=== PATIENT | male | born 1945 | race Caucasian/White ===

== ENCOUNTER → 2016-03-12 | Outpatient (CLI) | payer BC ==
[~2016-03-12] MED LIST: ASPEC325 PO; CALC500C70 PO; CHOL1000 PO; CYAN10005 PO; DICL1GEL12 TOP; LANS30CA12 PO; MELO15TA4 PO; MULT-506 PO; OXYC-57 PO; RAPID FLOW; SILD100T PO; ZOLP5TAB PO
--- NOTE | 2016-03-12 18:11 | DIAGNOSTIC IMAGING REPORT ---
RIGHT ANKLE MIN 3 VIEWS ROUTINE, RIGHT TIBIA/FIBULA 2 VIEWS ROUTINE CLINICAL HISTORY: Right lower leg and ankle injury with pain. COMPARISON STUDY: None. FINDINGS: Anterior and lateral soft tissue swelling within the right ankle. No fracture or dislocation within the right lower leg or right ankle. No radiopaque foreign bodies. IMPRESSION: No acute fracture or dislocation within the right tibia, right fibula, or right ankle. Electronically signed by: Hugh Arthur M.D. 03/12/2016 6:09 PM Dictated Date/Time: 03/12/2016 6:05 PM
== END | disposition home or self-care (01) ==
LOC: C.RAD 17:24
PROVIDERS: ATTEND Family Medicine
DX: S99.912A Unspecified injury of left ankle, initial encounter (principal); X58.XXXA Exposure to other specified factors, initial encounter

== ENCOUNTER → 2016-03-30 | Outpatient (CLI) | payer BC ==
--- NOTE | 2016-03-30 13:17 | DIAGNOSTIC IMAGING REPORT ---
MRI THE RIGHT ANKLE NO CONTRAST CLINICAL HISTORY: Right ankle pain status post trauma. Negative x-rays. COMPARISON STUDY: Conventional radiographic study dated 03/12/2016 FINDINGS: Imaging was performed the sagittal, coronal, and axial planes. There is mild marrow edema involving the anterior inferior talus. No fracture line is visualized in this may represent a bone bruise. There is anterior and lateral soft tissue edema. The anterior and posterior talo fibular ligaments appear intact. The anterior and posterior tibiofibular ligaments appear intact. The deltoid ligament appears intact. There is a tear of the tibialis anterior tendon. IMPRESSION: 1. Full-thickness tear of the tibialis anterior tendon 2. Mild marrow edema involving the anterior inferior talus likely secondary to a bone bruise 3. No evidence major ligamentous tear Electronically signed by: Juan Brown M.D. 03/30/2016 1:16 PM Dictated Date/Time: 03/30/2016 1:07 PM
== END | disposition home or self-care (01) ==
LOC: C.MRIBC 11:29
PROVIDERS: ATTEND Orthopaedic Surgery
DX: S96.911A Strain of unspecified muscle and tendon at ankle and foot level, right foot, initial encounter (principal); X58.XXXA Exposure to other specified factors, initial encounter

== ENCOUNTER → 2016-04-06 | Outpatient (CLI) | payer BC ==
[2016-04-06 15:38] LABS: BASO % 0.5 %; BASO ABS # 0.03 K/uL (0-0.2); COMPLETE YES; EOS % 0.9 %; HEMATOCRIT 40.4 % (42-52); IG% 0.2 %; LYMPH % 35.2 %; LYMPH ABS # 2.34 K/uL (1.2-3.4); MEAN CELL VOLUME 90.8 fL (80-100); MEAN CORPUSCULAR HGB CONC 34.2 g/dl (32-36); MEAN PLATELET VOLUME 12.8 fL (7.4-10.4); MONO % 10.2 %; PLATELET COUNT 198 K/uL (130-400); RED BLOOD COUNT 4.45 M/uL (4.7-6.1); WHITE BLOOD COUNT 6.65 K/uL (4.8-10.8)
[2016-04-06 15:57] LABS: POTASSIUM 3.7 mmol/L (3.5-5.1)
== END | disposition home or self-care (01) ==
LOC: C.LAB 14:14
PROVIDERS: ATTEND Orthopaedic Surgery Sports Medicine
DX: Z01.812 Encounter for preprocedural laboratory examination (principal); Z01.810 Encounter for preprocedural cardiovascular examination

== ENCOUNTER → 2016-04-11 | Day surgery (SDC) | payer BC ==
[2016-04-09 13:23] VITALS: Ht 188 cm; Wt 102.3 kg
[~2016-04-11] VITALS: Ht 188 cm; Wt 102.3 kg
[~2016-04-11] MED LIST changes: +ATROPINE SULFATE 0.1 MG/ML 5ML SYR IV PRN; +BUPIVACAINE/EPINEPHRINE 0.5% MPF 1:200,000 30 ML VIAL ONE; +CEFAZOLIN 2000 MG/60 ML D5W IV SCH; +CEFAZOLIN SOD 1 GM VIAL IV ONE; +DEXAMETHASONE SOD INJ 4 MG/ML VIAL ONE; +EpHEDrine SULFATE 50MG/5ML SYR ONE; +EpHEDrine SULFATE INJ 50 MG/ML AMP IV PRN; +FENTANYL CITRATE INJ 50 MCG/1 ML 2 ML VIAL IV PRN; +FENTANYL CITRATE INJ 50 MCG/1 ML 2 ML VIAL ONE; +GLYCOPYRROLATE INJ 0.2 MG/ML VIAL ONE; +LACTATED RINGER'S 1000ML 1,000 ML IV SCH; +LIDOCAINE HCL 2% 2 ML VIAL (20MG/ML) ONE; +MIDAZOLAM HCL 1 MG/ML 2ML VIAL ONE; +NEOSTIGMINE METHYLSULFATE 5 MG/5 ML SYR ONE; +NURSING VERBAL MED ORDER ONE; +ONDANSETRON INJ 2 MG/ML 2 ML VIAL IV PRN; +ONDANSETRON INJ 2 MG/ML 2 ML VIAL ONE; +OXYCODONE/ACETAMINOPHEN 5-325 TAB PO PRN; +PROPOFOL IV EMULSION 10 MG/ML 20 ML VIAL IV ONE; +RANITIDINE HCL 25 MG/ML INJ ONE; +ROCURONIUM BROMIDE 10 MG/ML 5 ML VIAL ONE; +SODIUM CHLORIDE 0.9% 1000ML 1,000 ML IV SCH; +SUCCINYLCHOLINE 100MG/5ML SYR IV ONE
--- NOTE | 2016-04-11 06:54 | History & Physical Bridge - [place] ---
H&P Re-Evaluation Bridge Note: I have examined the patient, reviewed the History & Physical and in the interval since the performance of the History & Physical I have noted the following changes of clinical significance: No changes noted
--- NOTE | 2016-04-11 09:22 | Discharge Instructions-SurgCtr ---
Discharge Instructions Visit Reason for Visit: Tendon Injury Lower Limb Discharge Discharge Diagnosis / Problem: RIGHT ANTERIOR TIBIALIS TENDON RUPTURE Discharge Goals Goal(s): Improve function, Therapeutic intervention Activity Recommendations Activity Limitations: per Instructions/Follow-up section Weightbearing Status: Right non-weightbearing Anesthesia . Post Anesthesia Instructions: If you have had General Anesthesia or IV Sedation: * Do not drive today. * Resume driving when surgeon permits. * Do not make important decisions or sign legal documents today. * Call surgeon for: 1. Temperature elevations greater than 101 degrees F. 2. Uncontrollable pain. 3. Excessive bleeding. 4. Persistent nausea and vomiting. 5. Medication intolerance (nausea, vomiting or rash). * For nausea and vomiting use only clear liquids such as: tea, soda, bouillon until nausea subsides, then gradually increase diet as tolerated. * If you have any concerns or questions, call your surgeon's office. If physician is unavailable and it is an emergency, call 911 or go to the nearest emergency room. . Instructions / Follow-Up Instructions / Follow-Up MEDICATIONS: * Resume previous medications unless instructed otherwise by your surgeon. * Always take pain medication on a full stomach or with food to avoid upset stomach. * Do not drink alcohol or drive while taking narcotics. * Ibuprofen or Tylenol may be taken if narcotic not needed. SPECIAL CARE INSTRUCTIONS: __ None _X_ Keep extremity elevated and iced x 48 hours; apply ice 20-30 minutes 8-10 times/day. May remove at night. _X_ Crutches (NON WEIGHTBEARING RIGHT LOWER EXTREMITY) __ May discard when able __ Brace/Post-op shoe __ 24 hrs/day __ Remove at night _X_ Dressing _X_ Maintain until seen in office, may shower with plastic over site __ Remove dressings in 24-48 hours and then may shower __ Cover incisions with band-aids after showering __ Do not remove steri-strips Call physician if chills or temperature rises above 102 degrees or pain unrelieved by prescribed pain medications. Office [phone] FOLLOW UP IN 2 WEEKS Diet Recommendations Home Diet: resume previous diet Procedures Procedures Performed: Right Anterior Tibialis Tendon Repair Pending Studies Studies pending at discharge: no Medical Emergencies . Who to Call and When: Medical Emergencies: If at any time you feel your situation is an emergency, please call 911 immediately. . Non-Emergent Contact Non-Emergency issues call your: Primary Care Provider, Surgeon . . "Provider Documentation" section prepared by Daniel Mcneil.
--- NOTE | 2016-04-11 09:24 | [facility] Post Operative Brief Note ---
Immediate Operative Summary Operative Date Apr 11, 2016. Pre-Operative Diagnosis right anterior tibialis tendon rupture Post-Operative Diagnosis same Procedure(s) Performed Right Anterior Tibialis Tendon Repair with z-lengthening Surgeon Dr Oliveira Medical Assistant Per Diem Surgeon(s) Lulu Mcneil PA-C Estimated Blood Loss 20 ml Findings Ruptured and contracted tibialis anterior tendon Specimens 0 Anesthesia General Complication(s) None Disposition Recovery Room / PACU
[2016-04-11 10:05] VITALS: TEMP 36.7
--- NOTE | 2016-04-11 10:33 | Anesthesia Progress Nt - [facility] ---
Anesthesia Post Op Note Date & Time Apr 11, 2016 at 10:34 Vital Signs Pain Intensity: 2 Vital Signs Past 12 Hours Date Time Temp Pulse Resp B/P Pulse Ox O2 Delivery O2 Flow Rate FiO2 04/11/16 10:05 36.7 65 16 133/75 98 Room Air 04/11/16 09:59 36.7 70 22 04/11/16 09:59 70 22 99 04/11/16 09:58 125/74 04/11/16 09:54 65 16 99 04/11/16 09:54 65 16 04/11/16 09:53 123/72 04/11/16 09:49 72 24 99 04/11/16 09:49 72 24 04/11/16 09:48 133/71 04/11/16 09:44 71 24 100 04/11/16 09:44 71 24 04/11/16 09:43 121/70 04/11/16 09:39 76 17 04/11/16 09:39 75 17 100 04/11/16 09:38 130/68 04/11/16 09:34 64 0 04/11/16 09:34 64 0 100 04/11/16 09:33 138/70 04/11/16 09:30 36.5 90 20 123/92 99 Nasal Cannula 4 04/11/16 09:29 84 19 04/11/16 09:29 86 19 99 04/11/16 06:27 36.3 64 18 126/69 95 Room Air Notes Mental Status: alert / awake / arousable, participated in evaluation Pt Amnestic to Procedure: Yes Nausea / Vomiting: adequately controlled Pain: adequately controlled Airway Patency, RR, SpO2: stable & adequate BP & HR: stable & adequate Hydration State: stable & adequate Anesthetic Complications: no major complications apparent
--- NOTE | 2016-04-11 10:59 | OPERATIVE REPORT ---
DATE OF OPERATION: 04/11/2016 SURGEON: Dr. Jeff Oliveira. PROFESSOR OF ENVIRONMENTAL STUDIES: JULIUS Arzola PREOPERATIVE DIAGNOSIS: Right subacute tibialis anterior tendon rupture. POSTOPERATIVE DIAGNOSIS: Same. PROCEDURE: Right tibialis anterior tendon repair with a Z lengthening. COMPLICATIONS: None. ESTIMATED BLOOD LOSS: 20 mL. TOURNIQUET TIME: 71 minutes at 300 mmHg. ANESTHESIA: General. SPECIMENS: None. OPERATIVE INDICATIONS: The patient is a 70-year-old very active, healthy gentleman who had some pain in his foot for several months. About a month ago, he had a couple of stumbling episode and then had increased weakness and a lump that developed over the front of his ankle. He was seen in clinic and diagnosed with tibialis anterior rupture, which was confirmed by MRI. The patient elected to proceed with surgical treatment. OPERATIVE FINDINGS: Operative findings revealed a tibialis anterior tendon rupture that was contracted back to his superior extensor retinaculum just at the inferior border. There was a very distal stump, but nothing that could be repaired to of any significant quality. It was fairly contracted. After sutures were placed in it, it was approximately 4 cm away from the insertion onto the medial cuneiform. OPERATIVE PROCEDURE: The patient was taken to the operating room, identified and placed on the operating table in the supine position. All contact areas were appropriately padded. IV antibiotics were provided by anesthesia team. A general anesthetic was implemented by anesthesia team. Right thigh tourniquet was then placed and the right lower extremity was then prepped and draped in the usual sterile fashion. The right leg was elevated and exsanguinated with Esmarch and tourniquet was placed at 300 mmHg. An approach to the tibialis anterior tendon was then performed beginning at the inferior aspect of the extensor retinaculum into the medial aspect of the medial cuneiform. Sharp dissection was carried out through the subcutaneous tissue down to the level of the dorsal foot fascia. I then opened the dorsal foot fascia. I was able to identify the tendon. There was quite a bit of fibrinous tissue around it. It was just at the inferior border of the superior extensor retinaculum. I did not incise this. I was able to pull the tendon down and placed a #2 FiberWire suture through the tendon in a running whipstitch fashion. This did tubularize it some. I then measured the diameter and it was 8 mm in diameter. We pulled on this and it was still 3-4 cm away from the potential bone tunnel in the medial cuneiform. Attention was then drawn toward creating the bone tunnel. This soft tissue over the medial cuneiform was identified under fluoroscopy and then we stripped the soft tissue off the bone. I then placed a guidewire in a proximal medial aspect of the medial cuneiform. I verified this fluoroscopically. I then overdrilled this with an 8-mm acorn reamer for a distance of 15 mm. I then placed some passing sutures to the plantar aspect of the foot. I placed an additional 0 Vicryl suture in the distal aspect of the tendon to apply tension. We then passed the sutures through the bone tunnel and the medial cuneiform and passed to the plantar aspect of the foot. Once again I was 3 cm away from getting this down into the tunnel, so we proceeded with a Z lengthening. The proximal incision was extended up the leg. I directed this off the lateral border of the anterior crest of the tibia about a cm. I then opened the anterior compartment fascia about a cm off the border of the tibial crest. The tibialis anterior tendon was identified. I then Z lengthened this for 5 cm above the superior extensor retinaculum. I then pulled the tibialis anterior tendon distally down into the bone tunnel. We then used an Arthrex biceps button, inserted the sutures through this and then tied this on the plantar aspect of the foot. This provided excellent approximation of the tendon into the bone. This did separate the Z lengthening essentially 5 cm. I then went to repair this Z lengthening. With the foot held in dorsiflexion, we placed a #2 FiberWire suture in the proximal and distal aspects of the Z lengthening portion of the tendon in a [place] fashion. I then tied the sutures keeping the foot in maximum dorsal flexion. We had got good approximation. There was a little bit of a bump to it in this area, but very nicely approximated. There was some moderate tension, which was ideal, but not excessive. Attention was then drawn toward closing. All wounds were irrigated with copious amounts of normal saline. I did inject locally with 30 mL of 0.5% Marcaine with epinephrine. The anterior compartment fascia was closed with 0 Vicryl suture in a [id number] fashion. The dorsal foot fascia in the inferior extensor retinaculum was closed with 0 Vicryl suture in a [id number] fashion. I did incorporate the distal stump of the tibialis anterior tendon and sewed it right over top of the inserted tendon into the bone to reinforce this. The tourniquet was then let down for a tourniquet time of 71 minutes. Hemostasis was assured with use of electrocautery. The subcutaneous tissues were then closed with 2-0 Dexon suture in a buried interrupted fashion. Skin was closed with 3-0 nylon suture in a horizontal mattress fashion. The foot and leg were then cleaned and dried and a sterile dressing of Xeroform, 4 x 4's, sterile cast padding and a well-padded posterior and stirrup splint were applied with the foot in maximum dorsiflexion. The patient was then brought out of general anesthesia and transferred to the recovery room in stable condition. The patient tolerated the procedure well with no complications. All needle and sponge counts were correct at the end of the operation. I attest to the content of the Intraoperative Record and any orders documented therein. Any exceptions are noted below. MIK
[2016-04-11 11:05] VITALS: BP 131/79; PULSE 65; O2SAT 98
== END | disposition home or self-care (01) ==
LOC: X.SURG 06:15
PROVIDERS: ATTEND Orthopaedic Surgery Sports Medicine
DX: M66.871 Spontaneous rupture of other tendons, right ankle and foot (principal); K21.9 Gastro-esophageal reflux disease without esophagitis

== ENCOUNTER 2016-07-26 09:01 | Day surgery (SDC) | payer BC ==
[2016-07-12 10:53] VITALS: BMI 25.0
--- NOTE | 2016-07-17 09:39 | DIAGNOSTIC IMAGING REPORT ---
CHEST 2 VIEWS ROUTINE CLINICAL HISTORY: K40.90 Inguinal hernia, right PRE-OP [id number] COMPARISON STUDY: No previous studies for comparison. FINDINGS: Mild emphysematous change. Study otherwise is negative. No evidence for cardiac enlargement. Diaphragms smooth. IMPRESSION: Emphysematous change. No acute process. Electronically signed by: Roberth Moe M.D. 07/17/2016 9:38 AM Dictated Date/Time: 07/17/2016 9:36 AM
[2016-07-17 09:49] LABS: BASO % 0.5 %; BASO ABS # 0.03 K/uL (0-0.2); COMPLETE YES; EOS % 0.8 %; HEMATOCRIT 43.3 % (42-52); IG% 0.2 %; LYMPH % 36.3 %; LYMPH ABS # 2.17 K/uL (1.2-3.4); MEAN CELL VOLUME 93.7 fL (80-100); MEAN CORPUSCULAR HEMOGLOBIN 31.2 pg (25-34); MEAN CORPUSCULAR HGB CONC 33.3 g/dl (32-36); MEAN PLATELET VOLUME 11.7 fL (7.4-10.4); MONO % 9.2 %; PLATELET COUNT 195 K/uL (130-400); RED BLOOD COUNT 4.62 M/uL (4.7-6.1); WHITE BLOOD COUNT 5.97 K/uL (4.8-10.8)
[2016-07-17 10:27] LABS: CALCIUM 8.9 mg/dl (8.5-10.1); CREATININE 0.94 mg/dl (0.60-1.40); POTASSIUM 4.5 mmol/L (3.5-5.1)
[~2016-07-26] VITALS: Ht 185.4 cm; Wt 88.6 kg
[~2016-07-26 09:01] MED LIST changes: -ASPEC325 PO; -ATROPINE SULFATE 0.1 MG/ML 5ML SYR IV PRN; -BUPIVACAINE/EPINEPHRINE 0.5% MPF 1:200,000 30 ML VIAL ONE; -CEFAZOLIN 2000 MG/60 ML D5W IV SCH; -CEFAZOLIN SOD 1 GM VIAL IV ONE; -DEXAMETHASONE SOD INJ 4 MG/ML VIAL ONE; -DICL1GEL12 TOP; -EpHEDrine SULFATE 50MG/5ML SYR ONE; -EpHEDrine SULFATE INJ 50 MG/ML AMP IV PRN; -FENTANYL CITRATE INJ 50 MCG/1 ML 2 ML VIAL IV PRN; -FENTANYL CITRATE INJ 50 MCG/1 ML 2 ML VIAL ONE; -GLYCOPYRROLATE INJ 0.2 MG/ML VIAL ONE; -LIDOCAINE HCL 2% 2 ML VIAL (20MG/ML) ONE; -MELO15TA4 PO; -MIDAZOLAM HCL 1 MG/ML 2ML VIAL ONE; -NEOSTIGMINE METHYLSULFATE 5 MG/5 ML SYR ONE; -NURSING VERBAL MED ORDER ONE; -ONDANSETRON INJ 2 MG/ML 2 ML VIAL IV PRN; -ONDANSETRON INJ 2 MG/ML 2 ML VIAL ONE; -OXYC-57 PO; -OXYCODONE/ACETAMINOPHEN 5-325 TAB PO PRN; -PROPOFOL IV EMULSION 10 MG/ML 20 ML VIAL IV ONE; -RANITIDINE HCL 25 MG/ML INJ ONE; -RAPID FLOW; -ROCURONIUM BROMIDE 10 MG/ML 5 ML VIAL ONE; -SODIUM CHLORIDE 0.9% 1000ML 1,000 ML IV SCH; -SUCCINYLCHOLINE 100MG/5ML SYR IV ONE
[2016-07-26] MEDS ORDERED: ATROPINE SULFATE 0.1 MG/ML 5ML SYR IV PRN (09:30)
[2016-07-26] MEDS ORDERED: FENTANYL CITRATE INJ 50 MCG/1 ML 2 ML VIAL IV PRN (09:30)
[2016-07-26] MEDS ORDERED: HYDROmorphone INJ 1 MG/ML SYR IV PRN (09:30)
[2016-07-26] MEDS ORDERED: LABETALOL HCL IV 5 MG/ML 20ML IV PRN (09:30)
[2016-07-26] MEDS ORDERED: EpHEDrine SULFATE INJ 50 MG/ML AMP IV PRN (09:30)
[2016-07-26] MEDS ORDERED: ONDANSETRON INJ 2 MG/ML 2 ML VIAL IV PRN ×2 (09:30→12:00)
[2016-07-26] MEDS ORDERED: MEPERIDINE HCL 25 MG/ML CARP IV PRN (09:30)
[2016-07-26 09:34] VITALS: BP 118/73; PULSE 66; TEMP 36.9; O2SAT 100; Ht 185.4 cm; Wt 88.6 kg
[2016-07-26] MEDS ORDERED: RAPID FLOW (09:53)
[2016-07-26] MEDS ORDERED: OXYC-57 PO (10:08)
--- NOTE | 2016-07-26 10:10 | Discharge Instructions ---
Discharge Instructions Date of Service July 26, 2016. Visit Reason for Visit: Recurrent Right Inguinal Hernia Discharge Discharge Diagnosis / Problem: hernia repair Discharge Goals Goal(s): Decrease discomfort Activity Recommendations Activity Limitations: as noted below Lifting Limitations: no more than 10 pounds Shower/Bathe: tomorrow Driving or Machine Use: 1 week Anesthesia . Post Anesthesia Instructions: If you have had General Anesthesia or IV Sedation: * Do not drive today. * Resume driving when surgeon permits. * Do not make important decisions or sign legal documents today. * Call surgeon for: 1. Temperature elevations greater than 101 degrees F. 2. Uncontrollable pain. 3. Excessive bleeding. 4. Persistent nausea and vomiting. 5. Medication intolerance (nausea, vomiting or rash). * For nausea and vomiting use only clear liquids such as: tea, soda, bouillon until nausea subsides, then gradually increase diet as tolerated. * If you have any concerns or questions, call your surgeon's office. If physician is unavailable and it is an emergency, call 911 or go to the nearest emergency room. . Instructions / Follow-Up Instructions / Follow-Up Dr. Arevalo in 1 week, call [phone] if you have any questions or need to schedule an appt Ice groin/incision area off and on alternating every 20 minutes until bedtime Diet Recommendations Recommended Home Diet: no limitations Pending Studies Studies pending at discharge: no Medical Emergencies . Who to Call and When: Medical Emergencies: If at any time you feel your situation is an emergency, please call 911 immediately. . Non-Emergent Contact Non-Emergency issues call your: Surgeon Call Non-Emergent contact if: you have a fever, temperature is above 101.5, your pain is not controlled, wound has increased redness . . "Provider Documentation" section prepared by Armando Mcclure. .
--- NOTE | 2016-07-26 10:13 | History & Physical Bridge Note ---
H&P Re-Evaluation Bridge Note: I have examined the patient, reviewed the History & Physical and in the interval since the performance of the History & Physical I have noted the following changes of clinical significance: No changes noted pt marked to be in waiting room
[2016-07-26] MEDS ORDERED: PROPOFOL IV EMULSION 10 MG/ML 20 ML VIAL IV ONE (10:20)
[2016-07-26] MEDS ORDERED: DEXAMETHASONE SOD INJ 4 MG/ML VIAL ONE (10:20)
[2016-07-26] MEDS ORDERED: ONDANSETRON INJ 2 MG/ML 2 ML VIAL ONE (10:20)
[2016-07-26] MEDS ORDERED: FENTANYL CITRATE INJ 50 MCG/1 ML 2 ML VIAL ONE ×2 (10:20→11:12)
[2016-07-26] MEDS ORDERED: LIDOCAINE HCL 2% 2 ML VIAL (20MG/ML) ONE (10:20)
[2016-07-26] MEDS ORDERED: MIDAZOLAM HCL 1 MG/ML 2ML VIAL ONE (10:21)
[2016-07-26] MEDS ORDERED: BACITRACIN 50000 UNIT VIAL ONE (10:26)
[2016-07-26] MEDS ORDERED: BUPIVACAINE 0.5 % 5 MG/1 ML MPF 30ML VIAL ONE (10:26)
[2016-07-26] MEDS ORDERED: CEFAZOLIN SOD 1 GM VIAL ONE ×2 (10:48→11:36)
[2016-07-26] MEDS ORDERED: GLYCOPYRROLATE INJ 0.2 MG/ML VIAL ONE (11:19)
[2016-07-26] MEDS ORDERED: EpHEDrine SULFATE 50MG/5ML SYR ONE (11:19)
--- NOTE | 2016-07-26 11:51 | [facility] Post Operative Brief Note ---
Immediate Operative Summary Operative Date July 26, 2016. Pre-Operative Diagnosis Right Inguinal Hernia Post-Operative Diagnosis Same direct and lipoma cord Procedure(s) Performed Direct Right Inguinal Hernia Repair with Mesh, Removal of Right Lipoma Cord Surgeon Dr Arevalo Open Winder Surgeon(s) Diana Monique PA-C Estimated Blood Loss 3.5ml Findings direct hernia and lipoma cord Specimens Specimen A. Lipoma
[2016-07-26] MEDS ORDERED: SODIUM CHLORIDE 0.9% 1000ML 1,000 ML IV SCH (11:53)
[2016-07-26] MEDS ORDERED: OXYCODONE/ACETAMINOPHEN 5-325 TAB PO PRN ×2 (12:00)
[2016-07-26 12:35] VITALS: BP 105/62; PULSE 57; TEMP 36.4; O2SAT 100
--- NOTE | 2016-07-26 12:35 | Anesthesiology Progress Note ---
Anesthesia Post Op Note Date & Time July 26, 2016 at 12:35 Vital Signs Pain Intensity: 4 Vital Signs Past 12 Hours Date Time Temp Pulse Resp B/P Pulse Ox O2 Delivery O2 Flow Rate FiO2 07/26/16 12:29 36.4 07/26/16 12:26 113/68 07/26/16 12:25 58 16 96 07/26/16 12:25 56 16 07/26/16 12:21 112/68 07/26/16 12:20 55 16 100 07/26/16 12:20 56 16 07/26/16 12:19 53 17 100 07/26/16 12:19 52 17 07/26/16 12:16 115/69 07/26/16 12:14 51 12 100 07/26/16 12:14 52 12 07/26/16 12:11 120/74 07/26/16 12:09 56 14 100 07/26/16 12:09 55 14 07/26/16 12:08 58 16 07/26/16 12:08 59 16 99 07/26/16 12:06 121/78 07/26/16 12:03 57 18 100 07/26/16 12:03 56 18 07/26/16 12:01 125/73 07/26/16 11:58 55 13 100 07/26/16 11:58 56 13 07/26/16 11:57 121/66 07/26/16 11:53 58 15 07/26/16 11:53 58 15 100 07/26/16 11:51 127/74 07/26/16 11:50 123/75 07/26/16 11:48 36.1 62 16 123/75 100 Mask 10 07/26/16 09:34 36.9 66 18 118/73 100 Room Air Notes Mental Status: alert / awake / arousable, participated in evaluation Pt Amnestic to Procedure: Yes Nausea / Vomiting: adequately controlled Pain: adequately controlled Airway Patency, RR, SpO2: stable & adequate BP & HR: stable & adequate Hydration State: stable & adequate Anesthetic Complications: no major complications apparent
[2016-07-26 13:05] VITALS: BP 112/72; PULSE 65; O2SAT 100
[2016-07-26] MEDS ORDERED: OXYCODONE/ACETAMINOPHEN 5-325 TAB ONE (13:15)
--- NOTE | 2016-07-26 13:30 | OPERATIVE REPORT ---
DATE OF OPERATION: 07/26/2016 PREOPERATIVE DIAGNOSIS: Right inguinal hernia. POSTOPERATIVE DIAGNOSIS: Right direct inguinal hernia and lipoma of the cord. PROCEDURE: Repair right indirect inguinal hernia with Marlex mesh tension free and excision lipoma of the cord. SURGEON: Dr. Arevalo. [employer] OPERATOR: Diana Monique PA-C. OPERATION AND FINDINGS: SUMMARY: The patient was brought into the operating room theater. Right lower quadrant prepped with Betadine solution and properly draped. We used 0.5% Marcaine with epinephrine to infiltrate 2 fingerbreadths medial anterior superior iliac crest preemptive analgesic. Therefore, an incision was made parallel to the inguinal ligament, deepened through subcutaneous tissue onto the external oblique. The subcutaneous vessels were ligated with 2-0 silk. The external oblique was opened once we had more local anesthesia subfascially. Through the external ring nerve was identified and elevated superiorly on top of hemostats. The cord and its structures were then elevated. We could see a significant amount of tissue in the external ring and also identified as we were freeing up that the patient had a pretty significant direct hernia. The inferior epigastric vessel was quite taut and actually in the way therefore we divided and ligated both doubly with 2-0 silk suture. We then were able then to free the cord structure from a lipoma of the cord, which we resected its base, ligated with 2-0 silk. There was no indirect hernia. At this point, we closed the direct defect by getting it out of the way with approximate some transversalis fascia then we brought a sheet of Marlex mesh and sutured onto the symphysis pubis, shelving portion of the inguinal ligament and laid on top of the conjoined tendon circumferentially reconstructed the internal ring. We placed the nerve along the cord structure. The internal ring was reconstructed only to accommodate the tip of a hemostat. We checked the area for hemostasis and appeared satisfactory. More local anesthesia was used along the wound in the operative field. 3-0 silk was used to close the external oblique on top of the mesh and the cord, subcutaneous 2-0 Dexon and kavitha for skin edges. Dressing was applied. The procedure was tolerated well by the patient. Minimal blood loss. The patient was taken to recovery room in good condition. I attest to the content of the Intraoperative Record and any orders documented therein. Any exceptio ns are noted below.
[2016-07-26 13:35] VITALS: BP 109/63; PULSE 80; TEMP 36.5; O2SAT 97
[2016-07-26 14:35] VITALS: BP 106/60; PULSE 77; TEMP 36.2; O2SAT 99
== END 2016-07-26 14:41 | disposition home or self-care (01) ==
LOC: C.ACU 09:01
PROVIDERS: ATTEND Surgery
DX: K40.90 Unilateral inguinal hernia, without obstruction or gangrene, not specified as recurrent (principal); D17.6 Benign lipomatous neoplasm of spermatic cord; K21.9 Gastro-esophageal reflux disease without esophagitis; N40.1 Benign prostatic hyperplasia with lower urinary tract symptoms; N13.8 Other obstructive and reflux uropathy; Z87.891 Personal history of nicotine dependence; Z79.899 Other long term (current) drug therapy

== ENCOUNTER → 2016-09-28 | Outpatient (CLI) | payer BC ==
[~2016-09-28] MED LIST changes: -LACTATED RINGER'S 1000ML 1,000 ML IV SCH; +OXYC-57 PO; +RAPID FLOW
--- NOTE | 2016-09-28 14:27 | DIAGNOSTIC IMAGING REPORT ---
LEFT HIP UNILATERAL 2 VIEWS CLINICAL HISTORY: 71 years-old Male presenting with BILATERAL HIP PAIN. TECHNIQUE: Frontal and frog-leg lateral views of the left hip were obtained. COMPARISON: CT of the pelvis from 2008. FINDINGS: Hip joint congruent. No fracture or malalignment. No significant degenerative change. Joint space preserved. IMPRESSION: No acute osseous injury of the left hip. Electronically signed by: Roel Vinson M.D. 09/28/2016 2:26 PM Dictated Date/Time: 09/28/2016 2:25 PM
--- NOTE | 2016-09-28 14:27 | DIAGNOSTIC IMAGING REPORT ---
RIGHT HIP UNILATERAL 2 VIEWS CLINICAL HISTORY: Bilateral hip pain. COMPARISON: None FINDINGS: Alignment of the right hip is anatomic. There is no fracture or suspicious lesion. There is mild joint space narrowing and osteophytosis of the right hip. There is no evidence of a vascular necrosis. IMPRESSION: 1. No acute fracture. 2. Mild osteoarthritis of the right hip. Electronically signed by: Karson Lopes M.D. 09/28/2016 2:25 PM Dictated Date/Time: 09/28/2016 2:24 PM
== END | disposition home or self-care (01) ==
LOC: C.LAB 13:59
PROVIDERS: ATTEND Family Medicine
DX: M25.551 Pain in right hip (principal); M25.552 Pain in left hip; M16.11 Unilateral primary osteoarthritis, right hip

== ENCOUNTER → 2017-03-12 | Outpatient (CLI) | payer BC, OTHER ==
[~2017-03-12] MED LIST changes: -OXYC-57 PO
--- NOTE | 2017-03-12 14:33 | EXERCISE STRESS ECHO ---
*NOTICE TO RECEIVING REPUBL[employer] AGENCY This information is strictly Confidential and protected under [place] law. [place] law prohibits you from making any further disclosure of this information unless further disclosure is expressly permitted by the written consent of the person to whom it pertains or is authorized by law. A general authorization for the release of medical or other information is not sufficient for this purpose. Hospital accepts no responsibility if the information is made available to any other person, INCLUDING THE PATIENT. Interpretation Summary * Name: AARON GONZALEZ Study Date: 03/12/2017 09:37 AM BP: 116/67 mmHg * Patient Location: [facility] HR: 66 * : 1945 (M/d/yyyy) Gender: Male Height: 74 in * Age: 71 yrs Ethnicity: CA Weight: 180 lb * Ordering Physician: Brenard Arce * Referring Physician: Bernard Arce * Performed By: Noemi Gutierrez RDCS * * Reason For Study: Dyspnea, Mitral Regurgitation * BSA: 2.1 m2 * -- Conclusions -- * 1. Normal stress echocardiogram at 11.6 METs and a peak heart rate of 99% predicted maximum. * 2. No exercise induced chest pain. * 3. No ECG changes. * 4. Baseline echocardiogram notes normal left ventricular systolic function and mild to moderate tricuspid regurgitation. Procedure Details * ECHOEX, CPT #[id number] * ECHO DOPPLER, CPT #[id number] * ECHO COLOR FLOW, CPT #[id number] Left Ventricle * The left ventricle is normal in size. * There is normal left ventricular wall thickness. * Ejection Fraction = 60-65%. * Resting wall motion: Normal. Stress wall motion: Appropriate increase in Left ventricular systolic function and decrease in cavity size. No stress induced segmental wall motion abnormalities. Right Ventricle * The right ventricle is grossly normal size. * The right ventricular systolic function is normal as assessed by tricuspid annular plane systolic excursion (TAPSE) (normal >1.5 cm). Atria * The left atrial size is normal. * The right atrium is mildly dilated. * No ASD detected; PFO is not assessed. Mitral Valve * The mitral valve anatomy is normal. * There is no mitral valve stenosis. * There is mild mitral regurgitation. Tricuspid Valve * The tricuspid valve is not well visualized, but is grossly normal. * There is mild to moderate tricuspid regurgitation. Aortic Valve * The aortic valve is normal in structure and function. * No hemodynamically significant valvular aortic stenosis. * No aortic regurgitation is present. Pulmonic Valve * The pulmonary valve is not well seen, but the Doppler examination is normal without significant regurgitation or stenosis. Great Vessels * The aortic root is normal size. * The pulmonary is not well visualized. Pericardium * There is no pericardial effusion. Stress Parameters * Normal baseline electrocardiogram. * Stress ECG: No ST changes. No arrhythmias. * Rest heart rate was '66' BPM. * Rest blood pressure was '116/67' * Maximum heart rate achieved was 148 bpm. * Maximum heart rate was 99 % of maximum age-predicted heart rate. * Maximum blood pressure was '160/79' * Total exercise time was '09:58' * Maximum exercise MET level achieved was '11.60' METS * Maximum treadmill speed was '4.20' miles per hour. * Maximum treadmill elevation was '16.00'% grade. MMode 2D Measurements and Calculations IVSd 1.0 cm IVSs 1.3 cm LVIDd 4.1 cm LVIDs 2.4 cm LVPWd 0.91 cm LVPWs 1.5 cm IVS/LVPW 1.1 FS 41.0 % EDV(Teich) 74.7 ml ESV(Teich) 20.7 ml EF(Teich) 72.2 % EDV(cubed) 69.4 ml ESV(cubed) 14.3 ml EF(cubed) 79.4 % % IVS thick 25.7 % % LVPW thick 67.1 % LV mass(C)d 124.3 grams LV mass(C)dI 59.8 grams/m\S\2 LV mass(C)s 105.8 grams LV mass(C)sI 50.9 grams/m\S\2 SV(Teich) 53.9 ml SI(Teich) 26.0 ml/m\S\2 SV(cubed) 55.1 ml SI(cubed) 26.5 ml/m\S\2 Ao root diam 3.0 cm Ao root area 7.1 cm\S\2 ACS 2.0 cm LA dimension 3.2 cm LA/Ao 1.1 LVAd ap4 34.1 cm\S\2 LVLd ap4 8.9 cm EDV(MOD-sp4) 111.7 ml EDV(sp4-el) 110.5 ml LVAs ap4 17.0 cm\S\2 LVLs ap4 6.9 cm ESV(MOD-sp4) 38.0 ml ESV(sp4-el) 35.4 ml EF(MOD-sp4) 66.0 % EF(sp4-el) 68.0 % LVAd ap2 30.6 cm\S\2 LVLd ap2 8.6 cm EDV(MOD-sp2) 92.5 ml EDV(sp2-el) 92.6 ml LVAs ap2 16.8 cm\S\2 LVLs ap2 6.9 cm ESV(MOD-sp2) 36.3 ml ESV(sp2-el) 35.0 ml EF(MOD-sp2) 60.7 % EF(sp2-el) 62.2 % LVLd %diff -4.16 % EDV(MOD-bp) 102.9 ml LVLs %diff -1.19 % ESV(MOD-bp) 36.9 ml EF(MOD-bp) 64.1 % SV(MOD-sp4) 73.7 ml SI(MOD-sp4) 35.5 ml/m\S\2 SV(MOD-sp2) 56.2 ml SI(MOD-sp2) 27.0 ml/m\S\2 SV(MOD-bp) 66.0 ml SI(MOD-bp) 31.8 ml/m\S\2 SV(sp4-el) 75.1 ml SI(sp4-el) 36.1 ml/m\S\2 SV(sp2-el) 57.6 ml SI(sp2-el) 27.7 ml/m\S\2 Doppler Measurements and Calculations MV E max joselo 67.2 cm/sec MV A max joselo 50.6 cm/sec MV E/A 1.3 MV V2 max 91.7 cm/sec MV max PG 3.4 mmHg MV V2 mean 39.7 cm/sec MV mean PG 0.77 mmHg MV V2 VTI 28.3 cm MV P1/2t max joselo 89.0 cm/sec MV P1/2t 72.9 msec MVA(P1/2t) 3.0 cm\S\2 MV dec slope 357.5 cm/sec\S\2 MV dec time 0.27 sec MR max joselo 490.4 cm/sec MR max PG 96.2 mmHg MR mean joselo 389.6 cm/sec MR mean PG 66.7 mmHg MR VTI 186.0 cm MR PISA 1.7 cm\S\2 MR PISA radius 0.52 cm PA V2 max 111.5 cm/sec PA max PG 5.0 mmHg TR max joselo 236.5 cm/sec
== END | disposition home or self-care (01) ==
LOC: C.CPL 09:17
PROVIDERS: ATTEND Family Medicine
DX: I34.0 Nonrheumatic mitral (valve) insufficiency (principal); R06.00 Dyspnea, unspecified

== ENCOUNTER 2021-06-07 12:41 | Observation (INO) ==
--- NOTE | 2021-06-07 12:57 | Emergency Department Note ---
Impression & Plan COVID-19, Syncope, Forehead laceration, Laceration of nose, Fracture of nasal bone, CHI (closed head injury) ED Provider Note NAME: AARON GONZALEZ AGE: 75 SEX: M : 1945 ARRIVES VIA: Walk-In INFORMANT: Patient, ED PROVIDER(S): Enzo Gupta MD Chief Complaint: Fall, Covid, dizzy HPI: Patient presents due to concern for dizziness which was ongoing since the middle of this past evening and when he had gotten up today in order to try and eat something prior to taking some supplements. The patient states that he woke up on the floor or benefit amount of blood. The patient did take an aspirin yesterday but does not take blood thinning medications. The patient states he had no obvious preceding symptoms other than this dizziness that have been ongoing since the middle of the night. The patient did feel quite poorly yesterday but after sleeping 15 hours he felt much improved today. Patient has had decreased p.o. intake. The patient had recently traveled to [facility] in [place] with some friends. The patient is the only one with symptoms. The patient is vaccinated including a booster shot for COVID-19. Patient denies any abdominal pain nausea or vomiting. Patient denies any chest pains or shortness of breath. Patient denies any leg swelling. Patient did suffer a cut to the nose as well as the left forehead. Patient states that the dizziness feels about the same. Patient states that his head does somewhat hurt it is worse with palpation. Patient denies any current nausea vomiting. ROS: See HPI for pertinent positives and negatives. A total of 10 systems were reviewed and otherwise negative. Past medical history: See below Surgical history: See below Social history: See below Physical Exam: GENERAL: NAD, wearing glasses, wearing a mask, non-toxic. EYE EXAM: Normal conjunctiva. PERRL, no anisocoria and EOM's grossly intact w/o pain. Head: Left-sided supraorbital laceration approximately 3 cm, no active bleeding, half centimeter laceration over the bridge of the nose. Scant bleeding noted. No pain to the midface. OROPHARYNX: Moist mucus membranes. Grossly normal dentition. NECK: Supple, no nuchal rigidity, no adenopathy, non-tender. No signs of meningismus. No midline C-spine TTP. LUNGS: Clear to auscultation. Normal chest wall mechanics. HEART: NSR, no MRG. ABDOMEN: Abdomen soft, non-tender, normo-active bowel sounds, no masses, no rebound or guarding. BACK: No CVA TTP. SKIN: No rashes and no bruising. UPPER EXTREMITIES: Upper extremities are grossly normal. No TTP or obvious deformity. LOWER EXTREMITIES: Grossly normal, no edema. No TTP or obvious deformity. NEURO EXAM: A&O x3, cranial nerves II-XII grossly intact, normal speech, moves all 4 extremities on command w/o issue. Good finger to nose, no drift, no sensory deficits. Differential diagnoses: Benign positional vertigo, dehydration, hypovolemia, anemia, tumor, infection, hypoglycemia, electrolyte abnormalities, cardiac sources, intracerebral event, toxicologic, neurologic, as well as other pathologies. Course: Patient was seen and evaluated the bedside. Full history physical exam was performed. EKG interpreted by Sinus bradycardia, rate of 54, normal intervals, normal axis, no obvious ST elevations. Imaging Studies: See Below Cardiac monitoring: An order was placed for continuous cardiac monitoring. The monitor shows a rate of 75 with sinus rhythm. Procedures: Laceration repair #[address] Gupta Location: Left supraorbital area Total length: 3 cm Complexity: Simple Verbal consent was obtained after the risks and benefits were explained, including but not limited to bleeding, scarring, infection, pain, and bone/landon int/nerve damage. At this time, the risks of the procedure are less than the risks of NOT performing the procedure. A time out was taken and the correct patient and site identified. The skin was prepped with betadine. The target area was anesthetized with 4 ml of 1% lidocaine without epinephrine. Copious irrigation was performed using saline and small in a Betadine. The skin was re- prepped with betadine and a sterile field set. The wound was explored for foreign bodies and none found. Examination revealed no injury to deep structures such as tendons, bone, or significant blood vessels. Debridement was not performed. The wound edges were approximated using 4, 4 -0 simple interrupted Ethilon sutures. Hemostasis and excellent approximation was achieved. Antibacterial ointment and a sterile dressing applied. Detailed wound care instructions and signs and symptoms of infection reviewed with the patient. No complications and the patient tolerated the procedure well. Laceration repair #[address] Gupta Location: Bridge of nose Total length: Half centimeter Complexity: Simple Verbal consent was obtained after the risks and benefits were explained, incl uding but not limited to bleeding, scarring, infection, pain, and bone/joint/nerve damage. At this time, the risks of the procedure are less than the risks of NOT performing the procedure. A time out was taken and the correct patient and site identified. The skin was prepped with betadine. Copious irrigation was performed using saline small minute Betadine. The skin was re- prepped with betadine and a sterile field set. The wound was explored for foreign bodies and none found. Examination revealed no injury to deep structures such as tendons, bone, or significant blood vessels. Debridement was not performed. The wound edges were approximated using 1, 4 -0 simple interrupted Ethilon sutures. Hemostasis and excellent approximation was achieved. Antibacterial ointment and a sterile dressing applied. Detailed wound care instructions and signs and symptoms of infection reviewed with the patient. No complications and the patient tolerated the procedure well. MDM: Patient was seen due to concern for dizziness and likely syncope with head injury. The patient had complained of some dizziness prior to his event but this is been ongoing for some time. Blood work was obtained. Given the pa carla's age and fall CT of the head was obtained. Given the possibility of distracting injury CT cervical spine was obtained along with a CT face as the patient did have 2 lacerations noted. Patient's blood work is fairly unremarkable. CT head and cervical spine are negative. CT face that showed nasal bone fractures. I did repair the patient's 2 separate lacerations 1 over the left supraorbital area as well as one stitch was placed into the bridge of the nose. Patient was given first dose of Augmentin. Given the patient's age and syncope do not think it unreasonable for observation and treatment. I did speak with the on-call hospitalist Dr. Pacheco. Patient was admitted to the medicine service. The patient was eating and drinking well. Past Med/Surg History Medical History Anxiety Back problem BCC (basal cell carcinoma) face Claustrophobia Diverticular disease GERD (gastroesophageal reflux disease) Muscle cramping Left calf muscle cramping since injury to left tibial tendon tear. Plantar fasciitis Tear of left hamstring Surgical History Difficult intubation Possibly. Glidescope #4 with previous tibial tendon repair. History of colonoscopy History of esophagogastroduodenoscopy (EGD) History of right inguinal hernia repair History of surgical removal of lesion History of tooth extraction Status post tendon repair RT and LT FOOT Family History Father Family history of diabetes mellitus Cancer Brother Family history of diabetes mellitus Mother Cancer Social History Smoking Status: Never smoker Second Hand Exposure: Yes; Hx Alcohol Use: Yes Alcohol type: beer Alcohol Intake Frequency: 2-4 x/Month Hx Substance Use: No Preferred Language: Algerian Communication Ability: Effective Visual Impairment: No Limitations Test Technician Required: No Beliefs That Will Affect Care: None marital status: Current Living Situation: Spouse 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 How many Children do You have: 2 Other Information That Helps Us Care for You: No Feels Safe at Home: Yes Safety Concerns: Feels Safe At This Time during the past year weight has: remained stable Assistive Devices: None Allergies Allergies Allergy/AdvReac Type Severity Reaction Status Date / Time Fish Containing Products Allergy Intermediate Nausea Verified 06/08/21 08:10 shellfish derived Allergy Intermediate Nausea Verified 06/08/21 08:10 SEAFOOD Allergy Intermediate nausea Uncoded 06/07/21 15:34 Home Meds Home Medications Medication Instructions Recorded Confirmed alprazolam 0.25 mg tablet (Xanax) 0.25 mg PO DIRECTED PRN 10/17/18 06/07/21 lansoprazole 30 mg capsule,delayed 30 mg PO Q OTHER DAY 10/17/18 06/07/21 release (Prevacid) ranitidine HCl 150 mg tablet 150 mg PO Q OTHER DAY 10/17/18 06/07/21 zolpidem 5 mg tablet (Ambien) 5 - 10 mg PO HS PRN 10/17/18 06/07/21 ferrous sulfate 325 mg (65 mg 325 mg PO DAILY 12/28/18 06/07/21 iron) tablet (iron) ibuprofen 200 mg tablet (Advil) 400 - 600 mg PO Q6H PRN 12/28/18 06/07/21 multivitamin 1 tab PO DAILY 12/28/18 06/07/21 sildenafil 100 mg tablet 100 mg PO DAILY PRN 12/28/18 06/07/21 alfuzosin 10 mg tablet,extended 10 mg PO QDD 06/07/21 06/07/21 release 24 hr Previous Rx's Medication Instructions Recorded Knee Scooter #1 ea 03/02/19 tramadol 50 mg tablet 50 - 100 mg PO Q6H PRN #24 tab 03/06/19 amoxicillin 875 mg-potassium 1 tab PO BID 7 Days #14 tab 06/07/21 clavulanate 125 mg tablet Results & Data (ED) Vital Signs Vital Signs - 24 hr 06/07/21 14:00 06/07/21 16:00 06/07/21 18:00 Pulse Rate [Apical] 55 L 81 68 Respiratory Rate 18 14 15 Respiratory Effort / Characteristics Non-Labored Spontaneous Respiratory Depth Normal Blood Pressure [Left Arm] 115/69 171/97 H 130/27 L Blood Pressure Mean [Left Arm] 84 121 61 Pulse Oximetry 99 99 100 Oxygen Delivery Method Room Air Room Air Home Medications Current Medication List: was personally reviewed by me Laboratory Data Attestation: I reviewed the patient's lab results. Result diagrams: 06/07/21 13:36 06/07/21 13:36 Lab Results 06/07/21 06/07/21 06/07/21 Range/Units 13:36 13:36 13:36 WBC 7.19 (4.8-10.8) K/uL RBC 4.22 L (4.7-6.1) M/uL Hgb 13.9 L (14.0-18.0) g/dL Hct 40.8 L (42-52) % MCV 96.7 (80-100) fL MCH 32.9 (25-34) pg MCHC 34.1 (32-36) g/dL RDW Std Deviation 44.3 (36.4-46.3) fL RDW Coeff of Julio Cesar 12.6 (11.5-14.5) % Plt Count 134 (130-400) K/uL MPV 11.3 H (7.4-10.4) fL Immature Gran % (Auto) 0.1 % Neut % (Auto) 80.2 % Lymph % (Auto) 7.6 % [place] % (Auto) 12.0 % Eos % (Auto) 0.0 % Baso % (Auto) 0.1 % Neut # (Auto) 5.76 (1.4-6.5) K/uL Lymph # (Auto) 0.55 L (1.2-3.4) K/uL Searcy # (Auto) 0.86 H (0.11-0.59) K/uL Eos # (Auto) 0.00 (0-0.5) K/uL Baso # (Auto) 0.01 (0-0.2) K/uL Immature Gran # (Auto) 0.01 (0.00-0.02) K/uL Sodium 136 (136-145) mmol/L Potassium 4.1 (3.5-5.1) mmol/L Chloride 100 (98-107) mmol/L Carbon Dioxide 28 (21-32) mmol/L Anion Gap 8 (3-11) BUN 15 (6-23) mg/dl Creatinine 0.96 (0.6-1.4) mg/dl Est Cr Clr Drug Dosing 73.0 ml/min Est GFR ( Amer) 89.3 ml/min Est GFR (Non-Af Amer) 77.0 ml/min BUN/Creatinine Ratio 15.6 (10-20) Glucose 119 H (70-99(Fasting)) mg/dl Calcium 8.6 (8.5-10.1) mg/dl Magnesium 2.2 (1.7-2.4) mg/dl Total Bilirubin 0.6 (0.2-1.0) mg/dl AST 23 (13-39) U/L ALT 17 (7-52) U/L Alkaline Phosphatase 48 (34-104) U/L Troponin I < 0.03 (0-0.04) ng/ml Total Protein 7.4 (6.0-8.3) gm/dl Albumin 4.3 (3.4-5.0) gm/dl Globulin 3.1 (2.5-4.0) gm/dl Albumin/Globulin Ratio 1.4 (0.9-2) TSH 0.420 (0.300-4.500) uIu/ml Administered Medications Acetaminophen (Acetaminophen 325 Mg Tab) 650 mg PO Q4H PRN PRN Reason: Pain or Fever Stop: 07/07/21 21:20 Last Admin: 06/08/21 06:46 Dose: 650 mg Documented by: [id number] Admin: 06/08/21 00:00 Dose: 650 mg Documented by: [id number] Amoxicillin/Clavulanate Potassium (Amoxicillin/Clavulanate 875 Mg Tab) 1 tab PO BIDM [facility] Stop: 06/18/21 07:59 Last Admin: 06/08/21 08:14 Dose: 1 tab Documented by: [id number] Ferrous Sulfate (Ferrous Sulfate 325 Mg Tab) 325 mg PO DAILY [facility] Stop: 07/08/21 08:59 Last Admin: 06/08/21 08:14 Dose: 325 mg Documented by: [id number] Guaifenesin/Dextromethorphan (Guaifenesin/Dextrom Syrup 200mg/20mg 10ml Udc) 10 ml PO Q6H PRN PRN Reason: Cough Stop: 07/08/21 09:01 Last Admin: 06/08/21 10:22 Dose: 10 ml Documented by: [id number] Multivitamins (Multivitamin Tab) 1 tab PO DAILY [facility] Stop: 07/08/21 08:59 Last Admin: 06/08/21 08:14 Dose: 1 tab Documented by: [id number] Pantoprazole Sodium (Pantoprazole 40 Mg Tab) 40 mg PO Q48H [facility] Stop: 07/07/21 21:59 Last Admin: 06/07/21 22:56 Dose: 40 mg Documented by: [id number] Discontinued Medications Acetaminophen (Acetaminophen 500 Mg Tab) 1,000 mg PO NOW STA Stop: 06/07/21 13:17 Last Admin: 06/07/21 13:25 Dose: 1,000 mg Documented by: [id number] Amoxicillin/Clavulanate Potassium (Amoxicillin/Clavulanate 875 Mg Tab) 1 tab PO NOW ONE Stop: 06/07/21 17:18 Last Admin: 06/07/21 17:49 Dose: 1 tab Documented by: [id number] Sodium Chloride (Nss 1000ml) 1,000 mls @ 999 mls/hr IV .Q1H1M [facility] Stop: 06/07/21 14:30 Last Infusion: 06/07/21 14:28 Dose: 0 mls/hr Documented by: [id number] Admin: 06/07/21 13:27 Dose: 999 mls/hr Documented by: [id number] Lidocaine HCl (Lidocaine 1% Local 20 Ml Vial) 20 ml INFIL NOW ONE Stop: 06/07/21 14:33 Last Admin: 06/07/21 14:57 Dose: 20 ml Documented by: [id number] Imaging Data Radiologist's Impression: Cervical Spine CT 06/07/21 13:[address] DOSE: HISTORY: Fall. Closed head injury. Neck pain. TECHNIQUE: Multiaxial CT images of the cervical spine were performed and reformatted in the sagittal and coronal plane without the use of contrast. A dose lowering technique was utilized adhering to the principles of ALARA. COMPARISON: None. FINDINGS: No fractures. No subluxation. Prevertebral soft tissues and the C1-C2 interval are intact. No pneumothorax. Partially visualized small fluid level within the right maxillary sinus. Moderate to severe disc space narrowing at C5- C6 and C6-C7. There is also moderate disc space narrowing within the upper thoracic spine. IMPRESSION: No fractures within the cervical spine. Partially visualized small fluid level within the right maxillary sinus. This is better appreciated on the same day maxillofacial CT. ACT 112: Negative or not required by law. Electronically signed by: Hugh Arthur M.D. 06/07/2021 2:39 PM Chest X-Ray 06/07/21 13:16 SINGLE VIEW CHEST CLINICAL HISTORY: Generalized weakness. FINDINGS: An AP, portable, upright chest radiograph is compared to study dated 03/03/2019. The cardiomediastinal silhouette is top normal for projection. Chronic interstitial thickening is similar to previous. Mild atelectasis is noted at the lung bases. The lungs and pleural spaces are otherwise clear. No pneumothorax is seen. The skeletal structures are osteopenic. The bony thorax is grossly intact. IMPRESSION: No active disease in the chest. ACT 112: Negative or not required by law. Electronically signed by: Jameson Haro M.D. 06/07/2021 2:[address] 06/07/21 13:[address] DOSE: HISTORY: fall head strike, nasal/L eyebrow lacs TECHNIQUE: Multiaxial CT images of the maxillofacial region were performed and reformatted in the coronal plane without the use of contrast. A dose lowering technique was utilized adhering to the principles of ALARA. COMPARISON: None. FINDINGS: The visualized cervical spine, skull base, pterygoid plates, lamina papyracea, orbital floors, mandible, and zygomatic arches are intact. No fra ctures. Mildly displaced nasal bone fractures. There is also a small nondisplaced fracture through the anterior nasal septum. Mild mucosal thickening within the maxillary sinuses. There is also partial opacification the right frontal sinus and ethmoid air cells. Small fluid level within the right ma xillary sinus which could represent hemorrhage or acute paranasal sinus disease. The globes and retrobulbar fat are intact. There is a left supraorbital soft tissue laceration. Punctate densities within the frontal scalp favor superficial debris. IMPRESSION: 1. Mildly displaced nasal bone fractures. There is also a small nondisplaced fracture through the anterior nasal septum. 2. Small fluid level within the right maxillary sinus which could represent hemorrhage or acute paranasal sinusitis. ACT 112: Negative or not required by law. Electronically signed by: Hugh Arthur M.D. 06/07/2021 2:[address] 06/07/21 13:16 CT head/brain wo con CLINICAL HISTORY: fall, head/nose strike Technique: Contiguous axial CT images of the head were acquired from the base of the skull to the vertex without intravenous contrast administration. Images were viewed in brain, subdural and bone windows. Automated dose lowering techniques and/or adjustment according to patient size were utilized for this exam. Comparison: None available at the time of this dictation. Findings: Areas of decreased attenuation are present in the periventricular and subcortical white matter bilaterally consistent with small vessel ischemic disease. Generalized cerebral atrophy with commensurate enlargement of the ventricles, sulci, and cisterns is also present. There is no acute intracranial hemorrhage or evidence of acute territorial infarction. No shift of the midline structures, mass effect, or extra-axial abnormalities are shown. Atherosclerotic calcifications are present in the intracranial segments of the internal carotid arteries. Air-fluid level is seen in the right maxillary sinus. Soft tissue thickening is seen in the ethmoid and frontal sinuses. The orbits appear normal. There are no acute fractures of the calvaria or scalp swelling. Impression: 1. No acute intracranial hemorrhage, skull fractures, or scalp swelling. Please see CT facial bones performed same day for findings of nasal fracture. 2. Air-fluid level is seen in the right maxillary sinus. Diffuse sinus disease is noted. ACT 112: Negative or not required by law. Electronically signed by: Vidal Abbott M.D. 06/07/2021 2:29 PM Discharge Plan Visit Data Chief Complaint: Fall Stated Complaint: FALL, LAC ABOVE EYE BROW COVID +, DIZZY, TIRED ED Provider: Enzo Gupta Discharge Problem: COVID-19, Syncope, Forehead laceration, Laceration of nose, Fracture of nasal bone, CHI (closed head injury) Patient Disposition: Admitted As Inpatient Condition: Good Discharge Instructions Interventions: ED Discharge Assessment Last Done: 06/07/21 20:56 Discharge Problem: Syncope Qualifiers: Syncope type: unspecified Qualified Code(s): R55 - Syncope and collapse Forehead laceration Qualifiers: Encounter type: initial encounter Qualified Code(s): S01.81XA - Laceration without foreign body of other part of head, initial encounter Laceration of nose Qualifiers: Encounter type: initial encounter Qualified Code(s): S01.21XA - Laceration without foreign body of nose, initial encounter Fracture of nasal bone Qualifiers: Encounter type: initial encounter CHI (closed head injury) Qualifiers: Encounter type: initial encounter Qualified Code(s): S09.90XA - Unspecified injury of head, initial encounter
[2021-06-07] MEDS ORDERED: ACETAMINOPHEN 500 MG TAB PO STA (13:16)
[2021-06-07] MEDS ORDERED: SODIUM CHLORIDE 0.9% 1000ML 1,000 ML IV SCH (13:30)
[2021-06-07 13:54] LABS: Basophils # (auto) 0.01 K/uL (0-0.2); Basophils % (auto) 0.1 %; Hematocrit (blood only) 40.8 % (42-52); Hemoglobin 13.9 g/dL (14.0-18.0); Immature Granulocytes # (auto) 0.01 K/uL (0.00-0.02); Immature Granulocytes % (auto) 0.1 %; Lymphocytes # (auto) 0.55 K/uL (1.2-3.4); Lymphocytes % (auto) 7.6 %; Mean Corpuscular Hemoglobin 32.9 pg (25-34); Mean Corpuscular Hgb Conc 34.1 g/dL (32-36); Mean Corpuscular Volume 96.7 fL (80-100); Mean Platelet Volume 11.3 fL (7.4-10.4); Monocytes # (auto) 0.86 K/uL (0.11-0.59); Neutrophils # (auto) 5.76 K/uL (1.4-6.5); Neutrophils % (auto) 80.2 %; Platelet Count 134 K/uL (130-400); RDW Coefficient of Variation 12.6 % (11.5-14.5); RDW Standard Deviation 44.3 fL (36.4-46.3); Red Blood Count 4.22 M/uL (4.7-6.1); White Blood Count 7.19 K/uL (4.8-10.8)
--- NOTE | 2021-06-07 14:04 | XRay Report ---
SINGLE VIEW CHEST CLINICAL HISTORY: Generalized weakness. FINDINGS: An AP, portable, upright chest radiograph is compared to study dated 03/03/2019. The cardio mediastinal silhouette is top normal for projection. Chronic interstitial thickening is similar to pr evious. Mild atelectasis is noted at the lung bases. The lungs and pleural spaces are otherwise clear . No pneumothorax is seen. The skeletal structures are osteopenic. The bony thorax is grossly intact. IMPRESSION: No active disease in the chest. ACT 112: Negative or not required by law. Electronically signed by: Jameson Haro M.D. 06/07/2021 2:03 PM
--- NOTE | 2021-06-07 14:30 | CT Scan Report ---
CT head/brain wo con CLINICAL HISTORY: fall, head/nose strike Technique: Contiguous axial CT images of the head were acquired from the base of the skull to the gerry daphne without intravenous contrast administration. Images were viewed in brain, subdural and bone [facility]. Automated dose lowering techniques and/or adjustment according to patient size were utilized for this exam. Comparison: None available at the time of this dictation. Findings: Areas of decreased attenuation are present in the periventricular and subcortical white matter bilate rally consistent with small vessel ischemic disease. Generalized cerebral atrophy with commensurate e nlargement of the ventricles, sulci, and cisterns is also present. There is no acute intracranial hem orrhage or evidence of acute territorial infarction. No shift of the midline structures, mass effect, or extra-axial abnormalities are shown. Atherosclerotic calcifications are present in the intracran ial segments of the internal carotid arteries. Air-fluid level is seen in the right maxillary sinus. Soft tissue thickening is seen in the ethmoid a nd frontal sinuses. The orbits appear normal. There are no acute fractures of the calvaria or scalp swelling. Impression: 1. No acute intracranial hemorrhage, skull fractures, or scalp swelling. Please see CT facial bones performed same day for findings of nasal fracture. 2. Air-fluid level is seen in the right maxillary sinus. Diffuse sinus disease is noted. ACT 112: Negative or not required by law. Electronically signed by: Vidal Abbott M.D. 06/07/2021 2:29 PM
[2021-06-07] MEDS ORDERED: LIDOCAINE 1% LOCAL 20 ML VIAL INFIL ONE (14:32)
--- NOTE | 2021-06-07 14:41 | CT Scan Report ---
CERVICAL SPINE CT CT DOSE: HISTORY: Fall. Closed head injury. Neck pain. TECHNIQUE: Multiaxial CT images of the cervical spine were performed and reformatted in the sagittal and coronal plane without the use of contrast. A dose lowering technique was utilized adhering to th e principles of ALARA. COMPARISON: None. FINDINGS: No fractures. No subluxation. Prevertebral soft tissues and the C1-C2 interval are intact. No pneumothorax. Partially visualized small fluid level within the right maxillary sinus. Moderate to severe disc space narrowing at C5-C6 and C6-C7. There is also moderate disc space narrowing within t he upper thoracic spine. IMPRESSION: No fractures within the cervical spine. Partially visualized small fluid level within the right maxil ramos sinus. This is better appreciated on the same day maxillofacial CT. ACT 112: Negative or not required by law. Electronically signed by: Hugh Arthur M.D. 06/07/2021 2:39 PM
[2021-06-07 14:45] LABS: Troponin I < 0.03 ng/ml (0-0.04)
--- NOTE | 2021-06-07 14:46 | CT Scan Report ---
MAXILLOFACIAL CT CT DOSE: HISTORY: fall head strike, nasal/L eyebrow lacs TECHNIQUE: Multiaxial CT images of the maxillofacial region were performed and reformatted in the cor onal plane without the use of contrast. A dose lowering technique was utilized adhering to the princ iplfrancisca of MARIZOL. COMPARISON: None. FINDINGS: The visualized cervical spine, skull base, pterygoid plates, lamina papyracea, orbital floo rs, mandible, and zygomatic arches are intact. No fractures. Mildly displaced nasal bone fractures. T here is also a small nondisplaced fracture through the anterior nasal septum. Mild mucosal thickening within the maxillary sinuses. There is also partial opacification the right frontal sinus and ethmoi d air cells. Small fluid level within the right maxillary sinus which could represent hemorrhage or a cute paranasal sinus disease. The globes and retrobulbar fat are intact. There is a left supraorbital soft tissue laceration. Punctate densities within the frontal scalp favor superficial debris. IMPRESSION: 1. Mildly displaced nasal bone fractures. There is also a small nondisplaced fracture through the ant erior nasal septum. 2. Small fluid level within the right maxillary sinus which could represent hemorrhage or acute paran preeti sinusitis. ACT 112: Negative or not required by law. Electronically signed by: Hugh Arthur M.D. 06/07/2021 2:44 PM
[2021-06-07 15:01] LABS: Alanine Aminotransferase 17 U/L (7-52); Albumin Globulin Ratio 1.4 (0.9-2); Albumin Level 4.3 gm/dl (3.4-5.0); Alkaline Phosphatase 48 U/L (34-104); Anion Gap 8 (3-11); Aspartate Aminotransferase 23 U/L (13-39); BUN Creatinine Ratio 15.6 (10-20); Bilirubin,Total 0.6 mg/dl (0.2-1.0); Blood Urea Nitrogen 15 mg/dl (6-23); Calcium 8.6 mg/dl (8.5-10.1); Carbon Dioxide 28 mmol/L (21-32); Chloride 100 mmol/L (98-107); Est GFR (African American) 89.3 ml/min; Globulin 3.1 gm/dl (2.5-4.0); Glucose 119 mg/dl (70-99(Fasting)); Magnesium 2.2 mg/dl (1.7-2.4); Potassium 4.1 mmol/L (3.5-5.1); Sodium 136 mmol/L (136-145); Total Protein 7.4 gm/dl (6.0-8.3)
[2021-06-07] MEDS ORDERED: AMOXICILLIN/CLAVULANATE 875 MG TAB PO ONE (17:17)
--- NOTE | 2021-06-07 17:46 | History & Physical Report ---
Date of Service June 07, 2021 Assessment & Plan (1) COVID-19: Plan: COVID isolation No specific treatment as not hypoxic. Unable to give monoclonal antibodies as inpatient. (2) Syncope: Plan: Monitor on telemetry overnight for arrhythmia PT to assess tomorrow with regards to safety on ambulation (3) Forehead laceration: Plan: Sutured in the ER (4) Sinusitis: Plan: Augmentin 875mg PO BID (5) CHI (closed head injury): Plan: Monitor for concussion tomorrow (6) Fracture of nasal bone: Plan: No specific treatment for this (7) BPH (benign prostatic hyperplasia): Plan: Continue alfuzosin 10mg PO QDD (8) GERD (gastroesophageal reflux disease): Plan: Continue lansoprazole 30mg PO QOD Plan: VTE Prophylaxis - chemical prophylaxis deferred pending clinical course Diet - regular Disposition - observation to med/tele Admission and Anticipated Discharge Date Admission Date: June 07, 2021 History of Present Illness Chief Complaint: Fall Primary Care Provider: Bernard Arce MD Oswaldo Marrero is a 75 year old male who presents to the ER with dizziness. Feels he gets dizzy, lightheaded as if his blood pressure is low. This started when he started to have COVID symptoms on Saturday. He took x2 home tests which confirmed he had COVID. Main symptoms of nasal congestion, fatigue, dizziness, muscle aches, cough, reduced appetite and generalized weakness. He denies any loss of taste or smell, shortness of breath or chest pain. He has been spending a long time in bed and actually felt a little better this morning. However after getting up to go downstairs for breakfast he found he lost consciousness and was on the floor. He was pre-syncopal with dizziness but cannot remember falling to the ground. He thinks he lost consciousness of a few seconds but cannot be sure. He thinks he was down for no more than 10-15 minutes. He hit his head and had a head laceration. He made it back to his bed where his found him several hours later and helped dress his wounds. He reports being vaccinated and boosted x1 - Jan 03 2021. In the ER CXR did not show any acute pathology. Head and face CT concerning for fluid level in maxillary sinus. EKG showing sinus bradycardia with incomplete right bundle branch block. He was referred to medicine for admission and ongoing management of syncope, COVID-19. Allergies Allergy/AdvReac Type Severity Reaction Status Date / Time SEAFOOD Allergy Intermediate nausea Uncoded 06/07/21 15:34 Home Medications Medication Instructions Recorded Confirmed Type alprazolam 0.25 mg tablet (Xanax) 0.25 mg PO DIRECTED PRN 10/17/18 06/07/21 History lansoprazole 30 mg capsule,delayed 30 mg PO Q OTHER DAY 10/17/18 06/07/21 History release (Prevacid) ranitidine HCl 150 mg tablet 150 mg PO Q OTHER DAY 10/17/18 06/07/21 History zolpidem 5 mg tablet (Ambien) 5 - 10 mg PO HS PRN 10/17/18 06/07/21 History ferrous sulfate 325 mg (65 mg 325 mg PO DAILY 12/28/18 06/07/21 History iron) tablet (iron) ibuprofen 200 mg tablet (Advil) 400 - 600 mg PO Q6H PRN 12/28/18 06/07/21 History multivitamin 1 tab PO DAILY 12/28/18 06/07/21 History sildenafil 100 mg tablet 100 mg PO DAILY PRN 12/28/18 06/07/21 History Knee Scooter #1 ea 03/02/19 05/22/21 Rx tramadol 50 mg tablet 50 - 100 mg PO Q6H PRN #24 tab 03/06/19 06/07/21 Rx alfuzosin 10 mg tablet,extended 10 mg PO QDD 06/07/21 06/07/21 History release 24 hr amoxicillin 875 mg-potassium 1 tab PO BID 7 Days #14 tab 06/07/21 Rx clavulanate 125 mg tablet Past Med/Surg History Medical History (Updated 06/08/21 @ 00:56 by Jose Pacheco MD) Anxiety Back problem BCC (basal cell carcinoma) face Claustrophobia Diverticular disease GERD (gastroesophageal reflux disease) Muscle cramping Left calf muscle cramping since injury to left tibial tendon tear. Plantar fasciitis Tear of left hamstring Surgical History Difficult intubation Possibly. Glidescope #4 with previous tibial tendon repair. History of colonoscopy History of esophagogastroduodenoscopy (EGD) History of right inguinal hernia repair History of surgical removal of lesion History of tooth extraction Status post tendon repair RT and LT FOOT Family History Father Family history of diabetes mellitus Cancer Brother Family history of diabetes mellitus Mother Cancer Social History Smoking Status: Never smoker Second Hand Exposure: Yes; Hx Alcohol Use: Yes Alcohol type: beer Alcohol Intake Frequency: 2-4 x/Month Hx Substance Use: No Preferred Language: Slovenian Communication Ability: Effective Visual Impairment: No Limitations Senior C Web Developer Required: No Beliefs That Will Affect Care: None marital status: Current Living Situation: Spouse 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 How many Children do You have: 2 Other Information That Helps Us Care for You: No Feels Safe at Home: Yes Safety Concerns: Feels Safe At This Time during the past year weight has: remained stable Assistive Devices: None Review of Systems Review of Systems: All systems reviewed & are unremarkable except as noted in HPI & below Physical Exam Constitutional: WD/WN, vitals as above no acute distress Eyes: PERRL, conjunctivae normal, anicteric sclerae ENMT: external ear and nose normal, oropharynx normal Neck: trachea midline, no thyromegaly Respiratory: normal respiratory effort, lungs clear to auscultation + cough Cardiovascular: RRR, no murmur, no edema Gastrointestinal (Abdomen): Inspection/Auscultation: normal bowel sounds Percussion/Palpation: abdomen soft; abdomen nontender, no guarding and abdomen not rigid Musculoskeletal: no cyanosis or clubbing, extremities motor strength 5/5 Skin: no rashes, warm and dry Trauma: + laceration (left forehead and nose, sutured in the ER) Neurologic: moves all extremities and awake; no focal motor deficits and not confused Motor/Sensory: no tremor and no pronator drift Psychiatric: A+Ox3, euthymic affect Results & Data Results & Data ([facility] [place]) Vital Signs (Past 12 Hours) Vital Signs Temp Pulse Pulse Resp BP BP Pulse Ox 06/07/21 16:00 81 14 171/97 H 99 06/07/21 14:00 55 L 18 115/69 99 06/07/21 13:44 97 06/07/21 12:45 36.7 C 71 20 115/63 97 Laboratory Results Abnormal lab results 06/07/21 06/07/21 06/07/21 Range/Units 13:36 13:36 19:07 RBC 4.22 L (4.7-6.1) M/uL Hgb 13.9 L (14.0-18.0) g/dL Hct 40.8 L (42-52) % MPV 11.3 H (7.4-10.4) fL Lymph # (Auto) 0.55 L (1.2-3.4) K/uL [place] # (Auto) 0.86 H (0.11-0.59) K/uL Glucose 119 H (70-99(Fasting)) mg/dl SARS-CoV-2 (PCR) POSITIVE A* (Negative) Diagnostic Findings CT head/brain wo con CLINICAL HISTORY: fall, head/nose strike Technique: Contiguous axial CT images of the head were acquired from the base of the skull to the vertex without intravenous contrast administration. Images were viewed in brain, subdural and bone windows. Automated dose lowering techniques and/or adjustment according to patient size were utilized for this exam. Comparison: None available at the time of this dictation. Findings: Areas of decreased attenuation are present in the periventricular and subcortical white matter bilaterally consistent with small vessel ischemic disease. Generalized cerebral atrophy with commensurate enlargement of the ventricles, sulci, and cisterns is also present. There is no acute intracranial hemorrhage or evidence of acute territorial infarction. No shift of the midline structures, mass effect, or extra-axial abnormalities are shown. Atherosclerotic calcifications are present in the intracranial segments of the internal carotid arteries. Air-fluid level is seen in the right maxillary sinus. Soft tissue thickening is seen in the ethmoid and frontal sinuses. The orbits appear normal. There are no acute fractures of the calvaria or scalp swelling. Impression: 1. No acute intracranial hemorrhage, skull fractures, or scalp swelling. Please see CT facial bones performed same day for findings of nasal fracture. 2. Air-fluid level is seen in the right maxillary sinus. Diffuse sinus disease is noted. MAXILLOFACIAL CT CT DOSE: HISTORY: fall head strike, nasal/L eyebrow lacs TECHNIQUE: Multiaxial CT images of the maxillofacial region were performed and reformatted in the coronal plane without the use of contrast. A dose lowering technique was utilized adhering to the principles of ALARA. COMPARISON: None. FINDINGS: The visualized cervical spine, skull base, pterygoid plates, lamina papyracea, orbital floors, mandible, and zygomatic arches are intact. No fractur es. Mildly displaced nasal bone fractures. There is also a small nondisplaced fracture through the anterior nasal septum. Mild mucosal thickening within the maxillary sinuses. There is also partial opacification the right frontal sinus and ethmoid air cells. Small fluid level within the right maxillary sinus which could represent hemorrhage or acute paranasal sinus disease. The globes and retrobulbar fat are intact. There is a left supraorbital soft tissue laceration. Punctate densities within the frontal scalp favor superficial debris. IMPRESSION: 1. Mildly displaced nasal bone fractures. There is also a small nondisplaced fracture through the anterior nasal septum. 2. Small fluid level within the right maxillary sinus which could represent hemorrhage or acute paranasal sinusitis. CERVICAL SPINE CT CT DOSE: HISTORY: Fall. Closed head injury. Neck pain. TECHNIQUE: Multiaxial CT images of the cervical spine were performed and reformatted in the sagittal and coronal plane without the use of contrast. A dose lowering technique was utilized adhering to the principles of ALARA. COMPARISON: None. FINDINGS: No fractures. No subluxation. Prevertebral soft tissues and the C1-C2 interval are intact. No pneumothorax. Partially visualized small fluid level within the right maxillary sinus. Moderate to severe disc space narrowing at C5- C6 and C6-C7. There is also moderate disc space narrowing within the upper thoracic spine. IMPRESSION: No fractures within the cervical spine. Partially visualized small fluid level within the right maxillary sinus. This is better appreciated on the same day maxillofacial CT. SINGLE VIEW CHEST CLINICAL HISTORY: Generalized weakness. FINDINGS: An AP, portable, upright chest radiograph is compared to study dated 03/03/2019. The cardiomediastinal silhouette is top normal for projection. Chronic interstitial thickening is similar to previous. Mild atelectasis is noted at the lung bases. The lungs and pleural spaces are otherwise clear. No pneumothorax is seen. The skeletal structures are osteopenic. The bony thorax is grossly intact. IMPRESSION: No active disease in the chest. Medications Administered ER Medications Given: NSS 1L bolus Acetaminophen 1000mg PO Lidocaine 1% local ECG Indication: syncope Rate (beats per minute): 54 Rhythm: sinus bradycardia Findings: + RBBB (incomplete) Comparison ECG Date: from (March 03, 2019) Change: no significant change Code Status & VTE Plan Code Status Full VTE Prophylaxis Plan VTE Prophylaxis will be ordered: No Reason for no VTE drug order: Treatment not indicated Reason for no VTE mechanical prophylaxis: Treatment not indicated PG Care Time/CCT Total # of Minutes Spent Total Time Spent with Patient: Total time spent is greater than 50% in coordination of care (as documented) at patient's floor/unit and/or counseling patient: Coding Level of Care Code INT OBSERVATION CARE 50M LVL 2 Diagnoses COVID-19 U07.1 Syncope R55 Syncope type: unspecified Forehead laceration S01.81XA Encounter type: initial encounter Sinusitis J32.9 CHI (closed head injury) S09.90XA Encounter type: initial encounter Fracture of nasal bone S02.2XXA Encounter type: initial encounter BPH (benign prostatic hyperplasia) N40.0 GERD (gastroesophageal reflux disease) K21.9 (1) Fracture of nasal bone Encounter type: initial encounter (2) CHI (closed head injury) Encounter type: initial encounter Qualified Code(s): S09.90XA - Unspecified injury of head, initial encounter (3) Syncope Syncope type: unspecified Qualified Code(s): R55 - Syncope and collapse (4) Forehead laceration Encounter type: initial encounter Qualified Code(s): S01.81XA - Laceration without foreign body of other part of head, initial encounter
[2021-06-07 19:57] LABS: Influenza A virus by PCR Negative (Neg); Influenza B virus by PCR Negative (Neg); RSV by PCR Negative (Neg)
[2021-06-07 19:59] LABS: SARS CoV2 RNA(COVID-19) InHosp POSITIVE (Negative)
[2021-06-07] MEDS ORDERED: ONDANSETRON INJ 2 MG/ML 2 ML VIAL IV PRN (21:21)
[2021-06-07] MEDS ORDERED: PANTOprazole 40 MG TAB PO SCH (22:00)
[2021-06-08] MEDS: ACETAMINOPHEN 325 MG TAB PO PRN ×2 (06:46)
--- NOTE | 2021-06-08 07:14 | Electrocardiogram Report ---
Test Reason : Blood Pressure : / mmHG Vent. Rate : 053 BPM Atrial Rate : 053 BPM P-R Int : 194 ms QRS Dur : 106 ms QT Int : 452 ms P-R-T Axes : 082 043 -19 degrees QTc Int : 424 ms Poor data quality, interpretation may be adversely affected Sinus bradycardia Abnormal ECG When compared with ECG of 03-MAR-2019 09:22, Probable No significant change Confirmed by Nathaniel Grady ([id number]) on 06/08/2021 7:13:45 AM Referred By: REFERRED SELF Confirmed By:Nathaniel Grady
--- NOTE | 2021-06-08 07:18 | Electrocardiogram Report ---
Test Reason : Blood Pressure : / mmHG Vent. Rate : 054 BPM Atrial Rate : 054 BPM P-R Int : 198 ms QRS Dur : 110 ms QT Int : 442 ms P-R-T Axes : 075 061 048 degrees QTc Int : 419 ms Sinus bradycardia Incomplete right bundle branch block Borderline ECG When compared with ECG of 07-JUN-2021 13:44, (unconfirmed) No significant change Confirmed by Nathaniel Grady ([id number]) on 06/08/2021 7:17:56 AM Referred By: REFERRED SELF Confirmed By:Nathaniel Grady
[2021-06-08] MEDS ORDERED: AMOXICILLIN/CLAVULANATE 875 MG TAB PO SCH (08:00)
[2021-06-08] MEDS ORDERED: MULTIVITAMIN TAB PO SCH (09:00)
[2021-06-08] MEDS ORDERED: FERROUS SULFATE 325 MG TAB PO SCH (09:00)
[2021-06-08] MEDS ORDERED: guaiFENesin/DEXTROM SYRUP 200MG/20MG 10ML UDC PO PRN (09:02)
[2021-06-08 12:45] VITALS: BP 136/73; TEMP 98.2; O2SAT 99
--- NOTE | 2021-06-08 15:39 | Discharge Summary ---
Date of Service June 08, 2021 Admission HPI Per Admitting Provider Oswaldo Marrero is a 75 year old male who presents to the ER with dizziness. Feels he gets dizzy, lightheaded as if his blood pressure is low. This started when he started to have COVID symptoms on Saturday. He took x2 home tests which confirmed he had COVID. Main symptoms of nasal congestion, fatigue, dizziness, muscle aches, cough, reduced appetite and generalized weakness. He denies any loss of taste or smell, shortness of breath or chest pain. He has been spending a long time in bed and actually felt a little better this morning. However after getting up to go downstairs for breakfast he found he lost consciousness and was on the floor. He was pre-syncopal with dizziness but cannot remember falling to the ground. He thinks he lost consciousness of a few seconds but cannot be sure. He thinks he was down for no more than 10-15 minutes. He hit his head and had a head laceration. He made it back to his bed where his found him several hours later and helped dress his wounds. He reports being vaccinated and boosted x1 - Jan 03 2021. In the ER CXR did not show any acute pathology. Head and face CT concerning for fluid level in maxillary sinus. EKG showing sinus bradycardia with incomplete right bundle branch block. He was referred to medicine for admission and ongoing management of syncope, COVID-19. Principal Diagnosis CoVid-19, nasal bone fracture, acute maxillary sinusitis, syncope Discharge Exam Constitutional WD/WN, vitals as above Eyes PERRL, conjunctivae normal, anicteric sclerae With 2 cm horizontal laceration above left eyebrow with several sutures in place, no drainage or erythema surrounding ENMT Ears: no hearing impairment and no external ear abnormality Nose: + external nose abnormality (Small lac on bridge of nose with [address]); no turbinate abnormality, no septum abnormality (No septal hematoma), no nasal discharge, no epistaxis, no facial edema and no facial tenderness Mouth: no oropharynx abnormality and no oral mucosal abnormality Neck trachea midline, no thyromegaly Respiratory normal respiratory effort, lungs clear to auscultation Cardiovascular RRR, no murmur, no edema Chest (Breasts) Chest: normal inspection of chest Gastrointestinal (Abdomen) normal bowel sounds, soft, nontender, no hepatosplenomegaly Musculoskeletal Extremities: extremities normal to inspection; no cyanosis and no clubbing Skin no rashes, warm and dry Neurologic moves all extremities and awake; no focal motor deficits Gait: no ataxic gait Psychiatric A+Ox3, euthymic affect Lymphatic no lymphedema Discharge Data Allergies Allergy/AdvReac Type Severity Reaction Status Date / Time Fish Containing Products Allergy Intermediate Nausea Verified 06/08/21 08:10 shellfish derived Allergy Intermediate Nausea Verified 06/08/21 08:10 SEAFOOD Allergy Intermediate nausea Uncoded 06/07/21 15:34 Consultations 06/07/21 17:31 ED Decision to Admit Stat Ordered Studies 06/07/21 13:16 CT cervical spine wo con Stat CT facial bones wo con Stat CT head/brain wo con Stat Hospital Course (1) COVID-19: He is vaccinated and boosted No specific treatment as not hypoxic and other than age has no risk factors for progression to severe disease i.e. no Paxlovid or Remdesivir With a mild cough-treat with Robitussin-DM as needed Gave precautions to return for worsening shortness of breath, hypoxia, chest pain, leg swelling or edema, or any other acute concerns Remain in isolation at home for 6 more days Continue Tylenol as needed for fevers or myalgias (2) Syncope: Had syncope after getting out of bed where he had been for several days and was not taking much in the way of fluids or food by mouth while sick with Covid-19 He did have a prodrome of lightheadedness but no chest pain or heart palpitations prior to passing out ECG normal, troponin negative on arrival, electrolytes normal No events on telemetry here-had sinus bradycardia in the 50s Orthostatics here with a drop of 10 systolically on the day of discharge but no longer symptomatic Likely orthostatic hypotension from dehydration. He also takes alfuzosin He was treated with IV fluid bolus in the ER Advised pumping the leg muscles prior to standing up and waiting before walking. Sit down or lay down if feel lightheaded Encourage plenty of fluids and to eat more food when he returns home With laceration on nasal bridge and above left eyebrow with sutures in place that will need to be removed in 1 week No evidence of concussion but gave precautions for this No intracranial hemorrhage Gave precautions to return if develops nausea, headache, dizziness, lethargy (3) Forehead laceration: Sutured in the ER, will need to have sutures removed in 1 week (4) Sinusitis: Augmentin 875mg PO BID to continue for 1 week in the setting of nasal bone fracture and right maxillary sinusitis seen on CT (5) CHI (closed head injury): Monitor for concussion at home but so far no symptoms (6) Fracture of nasal bone: No evidence of septal hematoma on examination The nose appears to be in good alignment Does have a fracture through the anterior nasal septum as well Continue Augmentin Arrange for outpatient follow-up with ENT Advised to not blow the nose-he did pull a blood clot out this morning he reported. Advised Afrin if has recurrent nasal bleeding and nasal saline for congestion (7) BPH (benign prostatic hyperplasia): Continue alfuzosin 10mg PO QDD with caution in setting of recent orthostatic hypotension and syncope (8) GERD (gastroesophageal reflux disease): Continue lansoprazole 30mg PO QOD Disposition-stable for discharge to home, did fine with PT Total Time Total Time Spent Total Time Spent (In Minutes): 35 minutes Discharge Plan Discharge Items Patient Disposition: Home - Self-Care Reason For Visit: DIZZINESS, COVID+VE Discharge Diagnosis: COVID-19, Dehydration, Syncope from orthostasis Condition on Discharge: Fair Activity: As commented below Lifting: Gradually increase as tolerated Bathing: No limitations Exercise/Sports: Gradually increase as tolerated Non-emergency contact: Primary Care Provider Call non-emergency contact if: you have any medication questions, your symptoms worsen and you have a fever Follow-up/Referrals: Raven Barney MD [Physician] - ([facility]: this office will be calling you at home with appointment information. If you do not hear from them within one week of dishcarge, please call them to follow up.) Bernard Arce MD [Primary Care Provider] - 06/15/21 3:45 pm (An appointment was made for you at Dr. Arce's office. Please call the office if you are not able to make this appointment. ) Diet: Regular Addtl Attending Provider Instructions: You were admitted because you had a head injury after passing out. This most likely occurred due to dehydration from COVID. Your blood pressure dropped when you walked to the bathroom. You suffered a broken nose and a laceration to your nose and your forehead. Your sutures will need to be removed in 1 week. You should squeeze the muscles in your legs before you stand up from a lying or seated position and sit or lie back down if you feel lightheaded upon standing. Please drink plenty of fluids to stay hydrated. For your broken nose, please use ice as needed for pain and swelling, and use Afrin nasal spray for bleeding or saline nasal spray as needed for congestion. Do not blow your nose. Follow up with the ENT Surgeon for your broken nose in 1 week. Please continue on the course of Augmentin for a sinus infection especially in the setting of the nasal fracture. Because of your head injury, if you develop a headache, have dizziness, nausea or vomiting, changes in your vision, weakness or numbness, please return to the ER. You should remain in isolation for your COVID for 6 more days. If you develop worsening shortness of breath or chest pain, oxygen levels less than 89% on a home pulse oximeter (please buy one or borrow one), leg pain or swelling, or are unable to keep fluids down due to nausea or vomiting, please return to the hospital. You can take Robitussin DM for cough and tylenol as needed for pain or fever. There is no specific treatment recommended for you as your oxygen levels were normal and you do not have risk factors for progression to severe disease other than your age. Pending Studies at Discharge: No Stand-Alone Forms: [facility] Cess[facility] Medications and DC Order Prescriptions: New amoxicillin-pot clavulanate 875-125 mg tablet 1 tab PO BID 7 Days Qty: 14 RF: 0 acetaminophen 325 mg Tablet 650 mg PO Q4H PRN (Reason: fever or pain) Qty: 30 RF: 0 Robitussin Cough-Chest Dony DM 5-100 mg/5 mL Liquid 10 ml PO Q6H PRN (Reason: cough) Qty: 118 RF: 0 Continued (DME) Knee Scooter Misc See Rx Instructions .ROUTE .MEDSUPPLY Qty: 1 RF: 0 alprazolam [Xanax] 0.25 mg Tablet 0.25 mg PO DIRECTED PRN (Reason: Anxiety) RF: 0 ranitidine HCl 150 mg Tablet 150 mg PO Q OTHER DAY RF: 0 lansoprazole [Prevacid] 30 mg Capsule,Delayed Release(Dr/Ec) 30 mg PO Q OTHER DAY RF: 0 zolpidem [Ambien] 5 mg Tablet 5 - 10 mg PO HS PRN (Reason: Insomnia) RF: 0 multivitamin Tablet 1 tab PO DAILY RF: 0 sildenafil 100 mg Tablet 100 mg PO DAILY PRN (Reason: Erectile Dysfunction) RF: 0 ferrous sulfate [iron] 325 mg (65 mg iron) Tablet 325 mg PO DAILY RF: 0 ibuprofen [Advil] 200 mg Tablet 400 - 600 mg PO Q6H PRN (Reason: Pain) RF: 0 tramadol 50 mg tablet 50 - 100 mg PO Q6H PRN (Reason: pain) Qty: 24 RF: 0 alfuzosin 10 mg tablet extended release 24 hr 10 mg PO QDD RF: 0 Discharge Orders: Discharge Order (Routine); Ordered 06/08/21 Ordered By: Caridad Avendano Admission Data Admit Date/Time: 06/07/21 18:19 Attending Provider: Caridad Avendano Admit Provider: Jose Pacheco Primary Care Provider: Bernard Arce Other Providers: Laurie Mayberry Other Interventions: Discharge Summary Assessment (RN) Last Done: 06/08/21 15:39 Coding Level of Care Code 58457 OBS Care - Discharge Diagnoses COVID-19 U07.1 Syncope R55 Syncope type: unspecified Forehead laceration S01.81XA Encounter type: initial encounter Sinusitis J32.9 CHI (closed head injury) S09.90XA Encounter type: initial encounter Fracture of nasal bone S02.2XXA Encounter type: initial encounter BPH (benign prostatic hyperplasia) N40.0 GERD (gastroesophageal reflux disease) K21.9
[2021-06-08 15:40] VITALS: PULSE 73
[2021-06-08] MEDS ORDERED: ALFUZOSIN HCL 10 MG TAB PO SCH (16:30)
== END 2021-06-08 16:51 | disposition home or self-care (01) ==
LOC: 2W 12:41 → ED 12:41 → SUATTDRO 18:19 → 2W 20:56

== ENCOUNTER 2022-05-06 09:49 | Inpatient (IN) ==
[2022-05-06] MEDS ORDERED: SODIUM CHLORIDE 0.9% 1000ML 1,000 ML IV ONE ×2 (10:20→13:45)
[2022-05-06] MEDS ORDERED: ONDANSETRON INJ 2 MG/ML 2 ML VIAL IV STA (10:20)
--- NOTE | 2022-05-06 10:28 | Emergency Department Note ---
Impression & Plan Pneumothorax, Syncope, Urinary tract infection, Chest wall contusion, Multiple fractures of ribs ED Provider Note NAME: AARON GONZALEZ AGE: 76 SEX: M : 1945 ARRIVES VIA: Walk-In INFORMANT: Patient, the patient's significant other ED PROVIDER(S): Abram Barajas DO CHIEF COMPLAINT: Syncope HPI: The patient is a 76-year-old male who presented to the emergency department for an evaluation after having a syncopal episode. The patient states he had a TURP procedure some weeks ago. He states ever since that time he has needed to self cath to urinate. He has had to get up multiple times in the night to urinate. He states over the last few days he has been feeling weak. He has had some back pain. He is also had episodes where he would start to shake. He describes rigors and also low-grade fevers. He has been taking NSAIDs for pain as well as fever. He had a documented fever yesterday. His significant other does give part of the history. The patient has no nausea or vomiting. The patient states he got up this morning at approximately 0400 to use the bathroom. When he went to go into the bathroom he felt very dizzy and lightheaded. This has been happening to him recently but then he started having the feeling that he was going to pass out. He did pass out and fall. He states he struck the wall. He states he has back pain. He has chest pain as well. The patient was able to ambulate with some difficulty. He still has dizziness upon standing. He is not noticing any black tarry or bloody stool. He denies having any headache at this time. He does not take any blood thinners. He continues to self cath for urine and has noticed some blood in his urine. ROS: See above HPI for pertinent positives & negatives. A total of 10 systems reviewed and were otherwise negative. PAST MEDICAL HISTORY: See Below PAST SURGICAL HISTORY: See Below FAMILY HISTORY: See Below SOCIAL HISTORY: See Below HOME MEDICATIONS: See Below ALLERGIES: See Below VITALS: See Below PHYSICAL EXAMINATION: GENERAL: The patient is awake and alert. Appears to be uncomfortable. EYES: The conjunctivae are clear. The pupils are round and reactive. EARS, NOSE, MOUTH AND THROAT: The nose is without any evidence of any deformity. Mucous membranes are dry. NECK: The neck is nontender and supple. RESPIRATORY: Normal respiratory effort is noted there is no evidence of wheezing rhonchi or rales CARDIOVASCULAR: Regular rate and rhythm noted there no murmurs rubs or gallops normal S1 normal S2. GASTROINTESTINAL: The abdomen is soft. Abdomen is nontender. BACK: There is no midline tenderness to palpation. There was significant tenderness over the right lateral lower rib cage. There is no crepitus. MUSCULOSKELETAL/EXTREMITIES: There is no evidence of gross deformity full range of motion is noted in the hips and shoulders. SKIN: There is no obvious evidence of any rash. There are no petechiae, pallor or cyanosis noted. NEUROLOGIC: Patient is awake alert and oriented x3 strength is symmetric pa tellar reflexes are 2+ bilaterally MEDICAL DECISION MAKING: The patient is a 76-year-old male who presented to the emergency department after having a syncopal episode. The patient was describing having problems with urination. Ever since he had a TURP procedure recently he has had to self cath for urine. The patient describes fever and near syncope. His history and physical exam appear to be consistent with an infection in his urine which likely led to his syncopal episode. The patient was treated with IV fluids IV pain medication as well as IV antibiotics the emergency department. Urine culture that was recently obtained was reviewed and the patient was treated with the appropriate antibiotic based on that culture. The patient had a syncopal episode at 4:00 this morning where he struck his right side. He had very significant pain on that side. Chest x-ray appears to be consistent with pneumothorax as well as physical exam consistent with rib fracture. I discussed the patient's laboratory and radiographic studies with him. He was treated with pain medication in the emergency department and on reevaluation was much more comfortable. He was placed on supplemental oxygen. I discussed his condition with the on-call graphic artist. They have agreed to evaluate the patient in the emergency department for possible chest tube placement. Triage Nursing notes reviewed. Prior medical records reviewed Vital Signs: reviewed and remarkable for no significant abnormalities Differential diagnosis: Vasovagal event, dehydration, infection, hypoglycemia, electrolyte abnormalities, cardiac sources, intracerebral event, pulmonary embolism, se izure, toxicologic, neurologic, as well as other pathologies. ER treatment provided: See below Diagnostics interpreted by me: ECG: EKG was obtained in the emergency department. My interpretation is normal sinus rhythm at 76 bpm. There was no ectopy. There is no acute ST segment abnormalities noted. This was compared to a tracing from March 13, 2022. No changes were noted. Cardiac Monitoring: An order was placed for continuous cardiac monitoring. The monitor shows a rate of 71 bpm with sinus rhythm. Laboratory studies: As stated above and show below. Imaging studies: See below. Radiographic imaging was reviewed by myself Consultation(s): I discussed this case with Dr. Lr who is on-call for the graphic artist. I discussed this case with Dr. Murray who is on-call for the [facility] hospitalist group. ED COURSE: Procedures: none Critical Care: I have personally spent greater than 45 minutes of critical care time in the direct management of this patient. This includes bedside care, interpretation of diagnostic studies, and testing, discussion with consultants, patient, and family members, and other required patient management activities. This 45 minutes is in excess of all separately billable procedures. Past Med/Surg History Medical History Abnormal CT scan, gastrointestinal tract hx Anterior tibial tendon tear, traumatic Anxiety Arthritis Back problem BPH (benign prostatic hyperplasia) Claustrophobia Diverticulitis large intestine 11/02/08 admitted to [facility] (proximal sigmoid) Encounter for pre-operative examination Fractured nose 06/2021-DISPLACEMENT FROM FALL; 2nd fall later 2021-refractured nose>reset in dr rico's office GERD (gastroesophageal reflux disease) History of COVID-19 06/2021>TEST DONE AT [facility] *SYMPTOMS>FATIGUE/DIZZINESS (RESOLVED) Hx of basal cell carcinoma Left foot pain Low BP Muscle cramping Left calf muscle cramping since injury to left tibial tendon tear.-"Now occasionally" Partial hamstring tear Penile swelling Plantar fasciitis Plantar fasciitis Tear of left hamstring Surgical History Chalazion REPAIRED X 2 Difficult intubation Possibly. Glidescope #4 with previous tibial tendon repair without issues per 2017 record History of colonoscopy History of cystoscopy History of esophagogastroduodenoscopy (EGD) History of right inguinal hernia repair History of surgical removal of lesion History of tooth extraction Status post tendon repair RT and LT FOOT Family History Father Family history of diabetes mellitus Lung cancer Heavy smoker Brother Diabetes Mother Kidney malignancy Other No family history of adverse response to anesthesia No family history of bleeding disorder Social History Smoking Status: Never smoker Second Hand Exposure: Yes (growing up); Hx Alcohol Use: Yes Alcohol type: beer and wine Alcohol Intake Frequency: 2-4 x/Month Hx Substance Use: No Preferred Language: Mexican Communication Ability: Effective Visual Impairment: No Limitations Art Preparator Required: No Beliefs That Will Affect Care: None marital status: Current Living Situation: Spouse 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 How many Children do You have: 2 Feels Safe at Home: Yes during the past year weight has: remained stable Assistive Devices: Glasses Allergies Allergies Allergy/AdvReac Type Severity Reaction Status Date / Time Fish Containing Products Allergy Intermediate Nausea Verified 05/06/22 11:23 shellfish derived Allergy Intermediate Nausea Verified 05/06/22 11:23 ciprofloxacin [From Cipro] AdvReac Unknown see comment Verified 05/06/22 11:23 metronidazole [From Flagyl] AdvReac Unknown see comment Verified 05/06/22 11:23 SEAFOOD Allergy Intermediate nausea Uncoded 05/06/22 11:23 Home Meds Home Medications Medication Instructions Recorded Confirmed zolpidem 5 mg tablet (Ambien) 5 - 10 mg PO HS PRN Insomnia 10/17/18 05/06/22 ferrous sulfate 325 mg (65 mg 325 mg PO QAM 12/28/18 05/06/22 iron) tablet (iron) sildenafil 100 mg tablet 100 mg PO DAILY PRN Erectile 12/28/18 05/06/22 Dysfunction Dhea 1 dose topical QAM 07/19/21 05/06/22 multivitamin 2 tab PO QAM 07/26/21 05/06/22 prednisone 10 mg tablet 10 mg PO DAILY PRN Muscle Pain 11/17/21 05/06/22 alprazolam 0.5 mg tablet (Xanax) 0.5 mg PO HS PRN Anxiety 03/21/22 05/06/22 betamethasone dipropionate 0.05 % 1 applic topical BID PRN Skin 03/21/22 05/06/22 topical ointment Irritation melatonin 10 mg tablet 10 mg PO HS PRN Sleep 03/21/22 05/06/22 tamsulosin 0.4 mg capsule (Flomax) 0.4 mg PO HS 03/21/22 05/06/22 docusate sodium 100 mg capsule 100 mg PO BID PRN stool softener 05/06/22 05/06/22 (Col-Rite) Previous Rx's Medication Instructions Recorded cyclobenzaprine 5 mg tablet 5 mg PO TID PRN muscle spasm #30 02/09/22 tabs oxybutynin chloride 5 mg 5 mg PO DAILY #30 tabs 04/02/22 tablet,extended release 24 hr (Ditropan XL) famotidine 20 mg tablet 20 mg PO HS 90 days #90 tabs 04/23/22 Results & Data (ED) Vital Signs Vital Signs - 24 hr 05/06/22 10:00 05/06/22 11:21 05/06/22 11:20 Temperature 36.7 C Temperature Source Temporal Artery Scan Pulse Rate 88 60 Pulse Rate [Apical] 71 Pulse Rate from SpO2 Sensor Pulse Rhythm Regular Pulse Rhythm [Apical] Regular Pulse Strength [Apical] Normal Respiratory Rate 14 18 17 Respiratory Effort / Characteristics Non-Labored Respiratory Depth Normal Respiratory Pattern Regular Blood Pressure 108/66 Blood Pressure [Left Arm] 105/63 Blood Pressure Mean 80 Blood Pressure Mean [Left Arm] 77 Blood Pressure Position [Left Arm] Pulse Oximetry 95 100 98 Oxygen Delivery Method Room Air Nasal Cannula Room Air Oxygen Flow Rate 2 Sepsis New/Unexplained Change in Mental Status No Sepsis Action Taken by Nursing No Action Required 05/06/22 11:45 05/06/22 12:07 05/06/22 11:50 Temperature Temperature Source Pulse Rate 71 72 Pulse Rate [Apical] 69 Pulse Rate from SpO2 Sensor 72 Pulse Rhythm Pulse Rhythm [Apical] Regular Pulse Strength [Apical] Normal Respiratory Rate 17 17 Respiratory Effort / Characteristics Non-Labored Spontaneous Respiratory Depth Normal Respiratory Pattern Blood Pressure Blood Pressure [Left Arm] Blood Pressure Mean Blood Pressure Mean [Left Arm] Blood Pressure Position [Left Arm] Pulse Oximetry 100 99 Oxygen Delivery Method Room Air Oxygen Flow Rate Sepsis New/Unexplained Change in Mental Status Sepsis Action Taken by Nursing 05/06/22 12:00 05/06/22 12:14 05/06/22 12:20 Temperature Temperature Source Pulse Rate 69 77 72 Pulse Rate [Apical] Pulse Rate from SpO2 Sensor 69 75 74 Pulse Rhythm Pulse Rhythm [Apical] Pulse Strength [Apical] Respiratory Rate 20 20 16 Respiratory Effort / Characteristics Respiratory Depth Respiratory Pattern Blood Pressure 118/58 L Blood Pressure [Left Arm] Blood Pressure Mean 78 Blood Pressure Mean [Left Arm] Blood Pressure Position [Left Arm] Pulse Oximetry 96 100 100 Oxygen Delivery Method Oxygen Flow Rate Sepsis New/Unexplained Change in Mental Status Sepsis Action Taken by Nursing 05/06/22 12:00 05/06/22 12:30 05/06/22 12:30 Temperature 36.9 C Temperature Source Oral Pulse Rate Pulse Rate [Apical] 65 79 Pulse Rate from SpO2 Sensor Pulse Rhythm Pulse Rhythm [Apical] Regular Regular Pulse Strength [Apical] Normal Normal Respiratory Rate 20 19 Respiratory Effort / Characteristics Non-Labored Spontaneous Non-Labored Spontaneous Respiratory Depth Normal Normal Respiratory Pattern Regular Blood Pressure 116/67 Blood Pressure [Left Arm] 116/67 Blood Pressure Mean 83 Blood Pressure Mean [Left Arm] 83 Blood Pressure Position [Left Arm] Lying Pulse Oximetry 100 100 Oxygen Delivery Method Nasal Cannula Nasal Cannula Oxygen Flow Rate 2 2 Sepsis New/Unexplained Change in Mental Status Sepsis Action Taken by Nursing 05/06/22 12:30 05/06/22 12:45 05/06/22 12:45 Temperature Temperature Source Pulse Rate 69 73 73 Pulse Rate [Apical] Pulse Rate from SpO2 Sensor 70 72 72 Pulse Rhythm Pulse Rhythm [Apical] Pulse Strength [Apical] Respiratory Rate 19 18 18 Respiratory Effort / Characteristics Respiratory Depth Respiratory Pattern Blood Pressure 116/71 Blood Pressure [Left Arm] Blood Pressure Mean 86 Blood Pressure Mean [Left Arm] Blood Pressure Position [Left Arm] Pulse Oximetry 100 98 98 Oxygen Delivery Method Oxygen Flow Rate Sepsis New/Unexplained Change in Mental Status Sepsis Action Taken by Nursing 05/06/22 13:00 05/06/22 13:00 05/06/22 13:30 Temperature Temperature Source Pulse Rate 73 78 102 H Pulse Rate [Apical] Pulse Rate from SpO2 Sensor 72 81 Pulse Rhythm Pulse Rhythm [Apical] Pulse Strength [Apical] Respiratory Rate 18 17 21 Respiratory Effort / Characteristics Respiratory Depth Respiratory Pattern Blood Pressure 123/64 120/65 Blood Pressure [Left Arm] Blood Pressure Mean 83 83 Blood Pressure Mean [Left Arm] Blood Pressure Position [Left Arm] Pulse Oximetry 98 98 95 Oxygen Delivery Method Nasal Cannula Oxygen Flow Rate Sepsis New/Unexplained Change in Mental Status Sepsis Action Taken by Nursing 05/06/22 13:45 05/06/22 14:00 05/06/22 14:15 Temperature Temperature Source Pulse Rate 100 H 97 H 95 H Pulse Rate [Apical] Pulse Rate from SpO2 Sensor Pulse Rhythm Pulse Rhythm [Apical] Pulse Strength [Apical] Respiratory Rate 20 21 19 Respiratory Effort / Characteristics Respiratory Depth Respiratory Pattern Blood Pressure 149/72 H 144/78 H 139/62 Blood Pressure [Left Arm] Blood Pressure Mean 97 100 87 Blood Pressure Mean [Left Arm] Blood Pressure Position [Left Arm] Pulse Oximetry 99 96 96 Oxygen Delivery Method Nasal Cannula Nasal Cannula Nasal Cannula Oxygen Flow Rate 2 2 2 Sepsis New/Unexplained Change in Mental Status Sepsis Action Taken by Nursing 05/06/22 14:53 05/06/22 16:00 Temperature Temperature Source Pulse Rate 93 H 73 Pulse Rate [Apical] Pulse Rate from SpO2 Sensor Pulse Rhythm Pulse Rhythm [Apical] Pulse Strength [Apical] Respiratory Rate 20 18 Respiratory Effort / Characteristics Respiratory Depth Respiratory Pattern Blood Pressure 123/69 114/58 L Blood Pressure [Left Arm] Blood Pressure Mean 87 76 Blood Pressure Mean [Left Arm] Blood Pressure Position [Left Arm] Pulse Oximetry 98 98 Oxygen Delivery Method Room Air Nasal Cannula Oxygen Flow Rate 2 Sepsis New/Unexplained Change in Mental Status Sepsis Action Taken by [facility] Medications Current Medication List: was personally reviewed by me Laboratory Data Attestation: I reviewed the patient's lab results. 05/06/22 10:35 05/06/22 10:35 Lab Results 05/06/22 05/06/22 05/06/22 Range/Units 10:35 10:35 10:35 WBC 11.41 H (4.8-10.8) K/ul RBC 4.00 L (4.70-6.10) M/uL Hgb 13.3 L (14.0-18.0) g/dl Hct 37.1 L (42.0-52.0) % MCV 92.8 (80.0-100.0) fL MCH 33.3 (25.0-34.0) pg MCHC 35.8 (32.0-36.0) g/dL RDW Std Deviation 41.1 (36.4-46.3) fL RDW Coeff of Julio Cesar 11.9 (11.5-14.5) % Plt Count 156 (130-400) K/uL MPV 11.0 (9.4-12.4) fL Immature Gran % (Auto) 0.3 % Neut % (Auto) 86.3 % Lymph % (Auto) 3.7 % [place] % (Auto) 9.4 % Eos % (Auto) 0.0 % Baso % (Auto) 0.3 % Neut # (Auto) 9.86 H (1.40-6.50) K/uL Lymph # (Auto) 0.42 L (1.2-3.4) K/uL [place] # (Auto) 1.07 H (0.11-0.59) K/uL Eos # (Auto) 0.00 (0-0.50) K/uL Baso # (Auto) 0.03 (0-0.2) K/uL Immature Gran # (Auto) 0.03 (0.01-0.20) K/uL PT 11.1 (9.0-12.0) Seconds INR 1.0 (0.9-1.1) APTT 29.0 (21.0-31.0) Seconds PTT Ratio 1.1 Sodium 132 L (136-145) mmol/L Potassium 3.6 (3.5-5.1) mmol/L Chloride 98 (98-107) mmol/L Carbon Dioxide 25 (21-32) mmol/L Anion Gap 9 (3-11) BUN 20 (6-23) mg/dl Creatinine 1.32 (0.6-1.4) mg/dl Est Cr Clr Drug Dosing 52.3 ml/min Est GFR ( Amer) 60.3 ml/min Est GFR (Non-Af Amer) 52.0 ml/min BUN/Creatinine Ratio 15.2 (10-20) Glucose 126 H (70-99(Fasting)) mg/dl Lactate (0.4-2.0) mmol/L Calcium 9.0 (8.5-10.1) mg/dl Magnesium 2.0 (1.7-2.4) mg/dl Total Bilirubin 1.2 H (0.2-1.0) mg/dl Direct Bilirubin 0.4 H (0-0.2) mg/dl AST 43 H (13-39) U/L ALT 40 (7-52) U/L Alkaline Phosphatase 72 (34-104) U/L Troponin I High Sens 12.0 (0-20) pg/ml Total Protein 7.3 (6.0-8.3) gm/dl Albumin 4.0 (3.4-5.0) gm/dl Procalcitonin (0-0.5) ng/ml Urine Color Urine Appearance (Clear) Urine pH (4.5-7.5) Ur Specific [place] (1.000-1.030) Urine Protein (Negative) Urine Glucose (UA) (Negative) Urine Ketones (Negative) Urine Blood (Negative) Urine Nitrite (Negative) Urine Bilirubin (Negative) Urine Urobilinogen (Negative) Ur Leukocyte Esterase (Negative) Urine WBC (Auto) (0-5) /hpf Urine RBC (Auto) (0-4) /hpf U Hyaline Cast (Auto) (0-5) /lpf U Epithel Cells (Auto) (0-5) /lpf Urine Bacteria (Auto) (Negative) SARS-CoV-2, RNA, NAAT (NEGATIVE) 05/06/22 05/06/22 05/06/22 Range/Units 10:35 10:35 11:13 WBC (4.8-10.8) K/ul RBC (4.70-6.10) M/uL Hgb (14.0-18.0) g/dl Hct (42.0-52.0) % MCV (80.0-100.0) fL MCH (25.0-34.0) pg MCHC (32.0-36.0) g/dL RDW Std Deviation (36.4-46.3) fL RDW Coeff of Julio Cesar (11.5-14.5) % Plt Count (130-400) K/uL MPV (9.4-12.4) fL Immature Gran % (Auto) % Neut % (Auto) % Lymph % (Auto) % [place] % (Auto) % Eos % (Auto) % Baso % (Auto) % Neut # (Auto) (1.40-6.50) K/uL Lymph # (Auto) (1.2-3.4) K/uL [place] # (Auto) (0.11-0.59) K/uL Eos # (Auto) (0-0.50) K/uL Baso # (Auto) (0-0.2) K/uL Immature Gran # (Auto) (0.01-0.20) K/uL PT (9.0-12.0) Seconds INR (0.9-1.1) APTT (21.0-31.0) Seconds PTT Ratio Sodium (136-145) mmol/L Potassium (3.5-5.1) mmol/L Chloride (98-107) mmol/L Carbon Dioxide (21-32) mmol/L Anion Gap (3-11) BUN (6-23) mg/dl Creatinine (0.6-1.4) mg/dl Est Cr Clr Drug Dosing ml/min Est GFR ( Amer) ml/min Est GFR (Non-Af Amer) ml/min BUN/Creatinine Ratio (10-20) Glucose (70-99(Fasting)) mg/dl Lactate 1.2 (0.4-2.0) mmol/L Calcium (8.5-10.1) mg/dl Magnesium (1.7-2.4) mg/dl Total Bilirubin (0.2-1.0) mg/dl Direct Bilirubin (0-0.2) mg/dl AST (13-39) U/L ALT (7-52) U/L Alkaline Phosphatase (34-104) U/L Troponin I High Sens (0-20) pg/ml Total Protein (6.0-8.3) gm/dl Albumin (3.4-5.0) gm/dl Procalcitonin 0.90 H (0-0.5) ng/ml Urine Color Dark Yellow Urine Appearance Turbid A (Clear) Urine pH 5.5 (4.5-7.5) Ur Specific [place] 1.017 (1.000-1.030) Urine Protein 2+ H (Negative) Urine Glucose (UA) Negative (Negative) Urine Ketones Trace H (Negative) Urine Blood 3+ H (Negative) Urine Nitrite Negative (Negative) Urine Bilirubin Negative (Negative) Urine Urobilinogen Negative (Negative) Ur Leukocyte Esterase 3+ H (Negative) Urine WBC (Auto) >30 H (0-5) /hpf Urine RBC (Auto) 5-10 H (0-4) /hpf U Hyaline Cast (Auto) 1-5 (0-5) /lpf U Epithel Cells (Auto) 10-20 H (0-5) /lpf Urine Bacteria (Auto) 4+ H (Negative) SARS-CoV-2, RNA, NAAT (NEGATIVE) 05/06/22 Range/Units 11:13 WBC (4.8-10.8) K/ul RBC (4.70-6.10) M/uL Hgb (14.0-18.0) g/dl Hct (42.0-52.0) % MCV (80.0-100.0) fL MCH (25.0-34.0) pg MCHC (32.0-36.0) g/dL RDW Std Deviation (36.4-46.3) fL RDW Coeff of Julio Cesar (11.5-14.5) % Plt Count (130-400) K/uL MPV (9.4-12.4) fL Immature Gran % (Auto) % Neut % (Auto) % Lymph % (Auto) % [place] % (Auto) % Eos % (Auto) % Baso % (Auto) % Neut # (Auto) (1.40-6.50) K/uL Lymph # (Auto) (1.2-3.4) K/uL [place] # (Auto) (0.11-0.59) K/uL Eos # (Auto) (0-0.50) K/uL Baso # (Auto) (0-0.2) K/uL Immature Gran # (Auto) (0.01-0.20) K/uL PT (9.0-12.0) Seconds INR (0.9-1.1) APTT (21.0-31.0) Seconds PTT Ratio Sodium (136-145) mmol/L Potassium (3.5-5.1) mmol/L Chloride (98-107) mmol/L Carbon Dioxide (21-32) mmol/L Anion Gap (3-11) BUN (6-23) mg/dl Creatinine (0.6-1.4) mg/dl Est Cr Clr Drug Dosing ml/min Est GFR ( Amer) ml/min Est GFR (Non-Af Amer) ml/min BUN/Creatinine Ratio (10-20) Glucose (70-99(Fasting)) mg/dl Lactate (0.4-2.0) mmol/L Calcium (8.5-10.1) mg/dl Magnesium (1.7-2.4) mg/dl Total Bilirubin (0.2-1.0) mg/dl Direct Bilirubin (0-0.2) mg/dl AST (13-39) U/L ALT (7-52) U/L Alkaline Phosphatase (34-104) U/L Troponin I High Sens (0-20) pg/ml Total Protein (6.0-8.3) gm/dl Albumin (3.4-5.0) gm/dl Procalcitonin (0-0.5) ng/ml Urine Color Urine Appearance (Clear) Urine pH (4.5-7.5) Ur Specific [place] (1.000-1.030) Urine Protein (Negative) Urine Glucose (UA) (Negative) Urine Ketones (Negative) Urine Blood (Negative) Urine Nitrite (Negative) Urine Bilirubin (Negative) Urine Urobilinogen (Negative) Ur Leukocyte Esterase (Negative) Urine WBC (Auto) (0-5) /hpf Urine RBC (Auto) (0-4) /hpf U Hyaline Cast (Auto) (0-5) /lpf U Epithel Cells (Auto) (0-5) /lpf Urine Bacteria (Auto) (Negative) SARS-CoV-2, RNA, NAAT NEGATIVE (NEGATIVE) Administered Medications Fentanyl Citrate (Fentanyl Citrate 100 Mcg/2 Ml Vial) 50 mcg IV Q15M PRN PRN Reason: Pain Stop: 05/20/22 10:19 Last Admin: 05/06/22 15:37 Dose: 50 mcg Documented By: Admin: 05/06/22 13:08 Dose: 50 mcg Documented By: Admin: 05/06/22 12:36 Dose: 50 mcg Documented By: Admin: 05/06/22 11:02 Dose: 50 mcg Documented By: KATLYN Discontinued Medications Hydromorphone HCl (Hydromorphone Inj 0.5 Mg/0.5 Ml Syr) 0.5 mg IV NOW STA Stop: 05/06/22 13:35 Last Admin: 05/06/22 13:47 Dose: 0.5 mg Documented By: KATLYN Sodium Chloride (Nss 1000ml) 1,000 mls @ 999 mls/hr IV .Q1H1M ONE Stop: 05/06/22 11:20 Last Infusion: 05/06/22 12:03 Dose: 0 mls/hr Documented By: Admin: 05/06/22 11:00 Dose: 999 mls/hr Documented By: KATLYN Piperacillin Sod/Tazobactam Sod (Zosyn) 4.5 gm in 120 mls @ 240 mls/hr IV NOW ONE Stop: 05/06/22 11:06 Last Infusion: 05/06/22 12:20 Dose: 0 mls/hr Documented By: Admin: 05/06/22 11:11 Dose: 240 mls/hr Documented By: KATLYN Sodium Chloride (Nss 1000ml) 1,000 mls @ 999 mls/hr IV .Q1H1M ONE Stop: 05/06/22 14:45 Last Infusion: 05/06/22 15:28 Dose: 0 mls/hr Documented By: Admin: 05/06/22 14:19 Dose: 999 mls/hr Documented By: KATLYN Ioversol (Optiray 350 100ml) 90 ml IV ONCE ONE Stop: 05/06/22 11:35 Last Admin: 05/06/22 11:35 Dose: 90 ml Documented By: LIBRADO Ondansetron HCl (Ondansetron Inj 2 Mg/Ml 2 Ml Vial) 4 mg IV NOW STA Stop: 05/06/22 10:21 Last Admin: 05/06/22 11:00 Dose: 4 mg Documented By: KATLYN Imaging Data Attestation: I personally reviewed and interpreted this imaging study as follows: My Impression: 1 view chest x-ray was obtained in the emergency department. My interpretation is right sided pneumothorax with subcu air. CT of the head was obtained in the emergency department. My interpretation is no definite intracranial hemorrhage, no mass effect. Final report pending. CT of the cervical spine was obtained in the emergency department. My interpretation is no definite fracture, final report pending. CT of the abdomen and pelvis and chest were obtained in the emergency department. My interpretation is right-sided pneumothorax with subcutaneous air. Rib fractures were noted. Final report is pending. Radiologist's Impression: Abdomen/Pelvis CT 05/06/22 10:[address] WITH CONTRAST; CT abdomen and pelvis with IV contrast only HISTORY: Acute chest and abdominal trauma status post fall fall TECHNIQUE: Multiaxial CT images of the chest, abdomen and pelvis were performed following the IV administration of 90 cc of Optiray. A dose lowering technique was utilized adhering to the principles of ALARA. COMPARISON: Chest radiograph of same day, CT abdomen and pelvis 05/10/2021 FINDINGS: CT CHEST: Unremarkable thyroid. No mediastinal hematoma. The heart is upper limits of normal in size. No thoracic aortic aneurysm or dissection. Unremarkable pulmonary artery. Mild subsegmental right greater than left dependent consolidation suggestive of atelectasis. Small right sided pneumothorax measures up to approximately 2 cm within the anterior right lung base. 3 mm fissural nodule within the superior segment right lower lobe, likely benign. Central airways are patent. There is moderate subcutaneous and deep tissue emphysema of the right chest wall extending into the right flank and neck. Acute and displaced fractures of the posterior right ninth and 10th ribs. These ribs also demonstrate acute nondisplaced fractures medially. No additional acute fracture identified. CT ABDOMEN/PELVIS: No pneumatosis or pneumoperitoneum. The spleen, pancreas, gallbladder, adrenal glands and liver appear unremarkable. Patent portal vein. There are a few cysts of the kidneys which measure up to 1.6 cm on the left and 4.3 cm on the right. No hydronephrosis. Mild urothelial thickening of the renal collecting systems. Mild prostamegaly. Decompressed urinary bladder with circumferential wall thickening and mild perivesicular stranding. Atherosclerosis of the aorta without aneurysm. Mild infrarenal ectasia of aorta measures 2.5 x 2.4 cm. No adenopathy. No bowel obstruction or definite bowel wall thickening. Colonic diverticulosis. Mild to moderate fecal retention. Noninflamed appendix. Scattered small bowel air-fluid levels are likely physiologic. Degenerative changes of the spine, pelvis and hips. IMPRESSION: 1. The posterior right ninth and 10th ribs are fractured in at least two places which includes displaced fractures. Acute nondisplaced fracture of the medial right 11th rib. 2. Small right-sided pneumothorax with subcutaneous and deep tissue emphysema of the right chest wall extending into the right flank and neck. 3. No acute posttraumatic intra-abdominal or intrapelvic abnormality. 4. Mild urothelial thickening of the renal collecting systems. Correlate with urinalysis to exclude infection. ACT 112: Negative or not required by law. Electronically signed by: Bean Daniels M.D. 05/06/2022 12:[address] 05/06/22 10:20 CT cervical spine wo con CT DOSE: 2642.08 mGy.cm CLINICAL HISTORY: 76 years-old Male with fall. Acute neck pain status post fall COMPARISON: Head CT and chest CT studies of same day, CT cervical spine 06/07/2021 TECHNIQUE: Multiple axial CT images of the cervical spine were obtained without contrast. A dose lowering technique was utilized adhering to the principles of ALARA. FINDINGS: Trace right apical pneumothorax with moderate subcutaneous emphysema of the right chest wall and right neck. Multilevel degenerative changes of the cervical spine. Nuchal ligament calcifications. Grade 1 anterolisthesis C4 on C5 and C7 on T1, likely secondary to chronic facet arthrosis. No acute fracture or subluxation identified. Multilevel neural foraminal narrowing. No prevertebral edema. IMPRESSION: 1. No acute fracture or subluxation of the cervical spine identified. 2. Trace right apical pneumothorax with moderate subcutaneous emphysema of the imaged right upper chest and right neck. Please refer to the chest CT of same day for additional thoracic findings. ACT 112: Negative or not required by law. The above report was generated using voice recognition software. It may contain grammatical, syntax or spelling errors. Electronically signed by: Bean Daniels M.D. 05/06/2022 11:[address] 05/06/22 10:[address] WITH CONTRAST; CT abdomen and pelvis with IV contrast only HISTORY: Acute chest and abdominal trauma status post fall fall TECHNIQUE: Multiaxial CT images of the chest, abdomen and pelvis were performed following the IV administration of 90 cc of Optiray. A dose lowering technique was utilized adhering to the principles of ALARA. COMPARISON: Chest radiograph of same day, CT abdomen and pelvis 05/10/2021 FINDINGS: CT CHEST: Unremarkable thyroid. No mediastinal hematoma. The heart is upper limits of normal in size. No thoracic aortic aneurysm or dissection. Unremarkable pulmonary artery. Mild subsegmental right greater than left dependent consolidation suggestive of atelectasis. Small right sided pneumothorax measures up to approximately 2 cm within the anterior right lung base. 3 mm fissural nodule within the superior segment right lower lobe, likely benign. Central airways are patent. There is moderate subcutaneous and deep tissue emphysema of the right chest wall extending into the right flank and neck. Acute and displaced fractures of the posterior right ninth and 10th ribs. These ribs also demonstrate acute nondisplaced fractures medially. No additional acute fracture identified. CT ABDOMEN/PELVIS: No pneumatosis or pneumoperitoneum. The spleen, pancreas, gallbladder, adrenal glands and liver appear unremarkable. Patent portal vein. There are a few cysts of the kidneys which measure up to 1.6 cm on the left and 4.3 cm on the right. No hydronephrosis. Mild urothelial thickening of the renal collecting systems. Mild prostamegaly. Decompressed urinary bladder with circumferential wall thickening and mild perivesicular stranding. Atherosclerosis of the aorta without aneurysm. Mild infrarenal ectasia of aorta measures 2.5 x 2.4 cm. No adenopathy. No bowel obstruction or definite bowel wall thickening. Colonic diverticulosis. Mild to moderate fecal retention. Noninflamed appendix. Scattered small bowel air-fluid levels are likely physiologic. Degenerative changes of the spine, pelvis and hips. IMPRESSION: 1. The posterior right ninth and 10th ribs are fractured in at least two places which includes displaced fractures. Acute nondisplaced fracture of the medial right 11th rib. 2. Small right-sided pneumothorax with subcutaneous and deep tissue emphysema of the right chest wall extending into the right flank and neck. 3. No acute posttraumatic intra-abdominal or intrapelvic abnormality. 4. Mild urothelial thickening of the renal collecting systems. Correlate with urinalysis to exclude infection. ACT 112: Negative or not required by law. Electronically signed by: Bean Daniels M.D. 05/06/2022 12:17 PM Chest X-Ray 05/06/22 10:20 XR chest 1V portable HISTORY: 76 years-old Male Sepsis acute sepsis. Acute chest trauma status post fall COMPARISON: Chest radiograph March 13, 2022 TECHNIQUE: AP view of the chest FINDINGS: Cardiac mediastinal and hilar silhouettes are within normal limits. Trace right apical pneumothorax, pleural separation of 1.2 cm. Bones appear grossly intact. Moderate subcutaneous emphysema right chest wall. Small right apical pneumothorax, pleural separation of 1.2 cm. Acute right-sided rib fractures. IMPRESSION: 1. Small right apical pneumothorax with pleural separation of 1.2 cm. Moderate associated subcutaneous emphysema. 2. Please refer to the chest CT of same day for discussion of the acute right- sided rib fractures. ACT 112: Negative or not required by law. The above report was generated using voice recognition software. It may contain grammatical, syntax or spelling errors. Electronically signed by: Bean Daniels M.D. 05/06/2022 12:[address] 05/06/22 10:20 CT head/brain wo con CLINICAL HISTORY: 76 years-old Male with fall. Acute head and neck injury status post fall TECHNIQUE: Multiple axial CT images of the head were obtained without contrast. A dose lowering technique was utilized adhering to the principles of ALARA. COMPARISON: CT cervical spine of same day, head CT 12/01/2021 FINDINGS: No acute intracranial hemorrhage, midline shift, intracranial mass, hydrocephalus, territorial ischemia or abnormal extra-axial collection. Mild involutional changes of the brain parenchyma. Suggestion of mild chronic microvascular ischemic disease. The calvarium is intact. Chronic bilateral nasal bone fractures. The paranasal sinuses, mastoid air cells, and middle ear cavities are clear. IMPRESSION: No acute intracranial abnormality or calvarial fracture. ACT 112: Negative or not required by law. The above report was generated using voice recognition software. It may contain grammatical, syntax or spelling errors. Electronically signed by: Bean Daniels M.D. 05/06/2022 11:53 AM Chest X-Ray 05/06/22 14:05 XR chest 1V portable HISTORY: 76 years-old Male chest tube right-sided pneumothorax COMPARISON: Chest CT of same day TECHNIQUE: AP view of the chest FINDINGS: Status post placement of a pleural drainage catheter with distal tip projected over the right upper lung. Decreased size of the small right apical pneumothorax, now with pleural separation of 2 mm. Subcutaneous emphysema of the right chest wall redemonstrated. Mild right basilar atelectasis. The left lung is clear. No pleural effusion or overt pulmonary edema. Degenerative changes of the shoulders and spine. IMPRESSION: Status post placement of a right-sided chest tube. Tiny right apical pneumothorax has decreased in size from prior. ACT 112: Negative or not required by law. The above report was generated using voice recognition software. It may contain grammatical, syntax or spelling errors. Electronically signed by: Bean Daniels M.D. 05/06/2022 2:33 PM Discharge Plan Visit Data Chief Complaint: Fall Stated Complaint: FALL ED Provider: Abram Barajas Discharge Problem: Pneumothorax, Syncope, Urinary tract infection, Chest wall contusion, Multiple fractures of ribs Patient Disposition: Admitted As Inpatient Forms Stand Alone Forms: [facility] Prescriptions Prescriptions: No Action oxybutynin chloride [Ditropan XL] 5 mg tablet extended release 24hr 5 mg PO DAILY Qty: 30 0RF famotidine 20 mg tablet 20 mg PO HS 90 Days Qty: 90 3RF prednisone 10 mg tablet 10 mg PO DAILY PRN (Reason: Muscle Pain) Patient Comments: uses only as needed per dr. camarean-pt calls PCP prior to taking multivitamin Tablet 2 tab PO QAM Patient Comments: chewable gummies cyclobenzaprine 5 mg tablet 5 mg PO TID PRN (Reason: muscle spasm) Qty: 30 0RF zolpidem [Ambien] 5 mg Tablet 5 - 10 mg PO HS PRN (Reason: Insomnia) sildenafil 100 mg Tablet 100 mg PO DAILY PRN (Reason: Erectile Dysfunction) ferrous sulfate [iron] 325 mg (65 mg iron) Tablet 325 mg PO QAM docusate sodium [Col-Rite] 100 mg capsule 100 mg PO BID PRN (Reason: stool softener) Dhea 1 dose topical QAM Rx Instructions: 50mg once daily alprazolam [Xanax] 0.5 mg Tablet 0.5 mg PO HS PRN (Reason: Anxiety) Rx Instructions: max daily dose 0.5mg melatonin 10 mg Tablet 10 mg PO HS PRN (Reason: Sleep) tamsulosin [Flomax] 0.4 mg capsule 0.4 mg PO HS betamethasone dipropionate 0.05 % ointment 1 applic topical BID PRN (Reason: Skin Irritation) Rx Instructions: apply to head of penis twice daily Referrals Referrals: Bernard Camarena MD [Primary Care Provider] -
[2022-05-06] MEDS ORDERED: PIPERACILLIN/TAZOBACTAM 4.5 GM/120 ML BAG IV ONE (10:37)
[2022-05-06 10:59] LABS: Basophils # (auto) 0.03 K/uL (0-0.2); Basophils % (auto) 0.3 %; Hematocrit (blood only) 37.1 % (42.0-52.0); Hemoglobin 13.3 g/dl (14.0-18.0); Immature Granulocytes # (auto) 0.03 K/uL (0.01-0.20); Immature Granulocytes % (auto) 0.3 %; Lymphocytes # (auto) 0.42 K/uL (1.2-3.4); Lymphocytes % (auto) 3.7 %; Mean Corpuscular Hemoglobin 33.3 pg (25.0-34.0); Mean Corpuscular Hgb Conc 35.8 g/dL (32.0-36.0); Mean Corpuscular Volume 92.8 fL (80.0-100.0); Monocytes # (auto) 1.07 K/uL (0.11-0.59); Monocytes % (auto) 9.4 %; Neutrophils # (auto) 9.86 K/uL (1.40-6.50); Neutrophils % (auto) 86.3 %; Platelet Count 156 K/uL (130-400); RDW Coefficient of Variation 11.9 % (11.5-14.5); RDW Standard Deviation 41.1 fL (36.4-46.3); White Blood Count 11.41 K/ul (4.8-10.8)
[2022-05-06] MEDS: fentaNYL citrate 100 MCG/2 ML VIAL IV PRN ×4 (11:02→15:37)
[2022-05-06 11:15] LABS: BUN Creatinine Ratio 15.2 (10-20); Bilirubin Direct 0.4 mg/dl (0-0.2); Bilirubin,Total 1.2 mg/dl (0.2-1.0); Creatinine Clr Calc Pharmacy 52.3 ml/min; Est GFR (African American) 60.3 ml/min; Potassium 3.6 mmol/L (3.5-5.1); Total Protein 7.3 gm/dl (6.0-8.3)
[2022-05-06] MEDS ORDERED: OPTIRAY 350 100ml IV ONE (11:34)
[2022-05-06 11:39] LABS: Partial Thromboplastin Ratio 1.1; Prothrombin Time 11.1 Seconds (9.0-12.0)
[2022-05-06 11:46] LABS: Appearance Urine Turbid (Clear); Bacteria Urine Automated 4+ (Negative); Bilirubin Urine Negative (Negative); Blood Urine 3+ (Negative); Color Urine Dark Yellow; Glucose Urine UA Negative (Negative); Ketones Urine Trace (Negative); Leukocyte Esterase Urine 3+ (Negative); Nitrite Urine Negative (Negative); Protein Urine 2+ (Negative); Specific Gravity Urine 1.017 (1.000-1.030); Urobilinogen Urine Negative (Negative); WBC Urine Automated >30 /hpf (0-5); pH Urine 5.5 (4.5-7.5)
--- NOTE | 2022-05-06 11:54 | CT Scan Report ---
CT head/brain wo con CLINICAL HISTORY: 76 years-old Male with fall. Acute head and neck injury status post fall TECHNIQUE: Multiple axial CT images of the head were obtained without contrast. A dose lowering tech nique was utilized adhering to the principles of ALARA. COMPARISON: CT cervical spine of same day, head CT 12/01/2021 FINDINGS: No acute intracranial hemorrhage, midline shift, intracranial mass, hydrocephalus, territorial ischem ia or abnormal extra-axial collection. Mild involutional changes of the brain parenchyma. Suggestion of mild chronic microvascular ischemic disease. The calvarium is intact. Chronic bilateral nasal bone fractures. The paranasal sinuses, mastoid air c ells, and middle ear cavities are clear. IMPRESSION: No acute intracranial abnormality or calvarial fracture. ACT 112: Negative or not required by law. The above report was generated using voice recognition software. It may contain grammatical, syntax o r spelling errors. Electronically signed by: Bean Daniels M.D. 05/06/2022 11:53 AM
--- NOTE | 2022-05-06 12:00 | CT Scan Report ---
CT cervical spine wo con CT DOSE: 2642.08 mGy.cm CLINICAL HISTORY: 76 years-old Male with fall. Acute neck pain status post fall COMPARISON: Head CT and chest CT studies of same day, CT cervical spine 06/07/2021 TECHNIQUE: Multiple axial CT images of the cervical spine were obtained without contrast. A dose low ering technique was utilized adhering to the principles of ALARA. FINDINGS: Trace right apical pneumothorax with moderate subcutaneous emphysema of the right chest wal l and right neck. Multilevel degenerative changes of the cervical spine. Nuchal ligament calcificatio ns. Grade 1 anterolisthesis C4 on C5 and C7 on T1, likely secondary to chronic facet arthrosis. No ac [place] fracture or subluxation identified. Multilevel neural foraminal narrowing. No prevertebral edema. IMPRESSION: 1. No acute fracture or subluxation of the cervical spine identified. 2. Trace right apical pneumothorax with moderate subcutaneous emphysema of the imaged right upper [address] and right neck. Please refer to the chest CT of same day for additional thoracic findings. ACT 112: Negative or not required by law. The above report was generated using voice recognition software. It may contain grammatical, syntax o r spelling errors. Electronically signed by: Bean Daniels M.D. 05/06/2022 11:57 AM
--- NOTE | 2022-05-06 12:18 | CT Scan Report ---
CHEST CT WITH CONTRAST; CT abdomen and pelvis with IV contrast only HISTORY: Acute chest and abdominal trauma status post fall fall TECHNIQUE: Multiaxial CT images of the chest, abdomen and pelvis were performed following the IV admi nistration of 90 cc of Optiray. A dose lowering technique was utilized adhering to the principles o f ALARA. COMPARISON: Chest radiograph of same day, CT abdomen and pelvis 05/10/2021 FINDINGS: CT CHEST: Unremarkable thyroid. No mediastinal hematoma. The heart is upper limits of normal in size. No thorac ic aortic aneurysm or dissection. Unremarkable pulmonary artery. Mild subsegmental right greater than left dependent consolidation suggestive of atelectasis. Small right sided pneumothorax measures up t o approximately 2 cm within the anterior right lung base. 3 mm fissural nodule within the superior se gment right lower lobe, likely benign. Central airways are patent. There is moderate subcutaneous and deep tissue emphysema of the right chest wall extending into the r ight flank and neck. Acute and displaced fractures of the posterior right ninth and 10th ribs. These ribs also demonstrate acute nondisplaced fractures medially. No additional acute fracture identified. CT ABDOMEN/PELVIS: No pneumatosis or pneumoperitoneum. The spleen, pancreas, gallbladder, adrenal glands and liver appea r unremarkable. Patent portal vein. There are a few cysts of the kidneys which measure up to 1.6 cm o n the left and 4.3 cm on the right. No hydronephrosis. Mild urothelial thickening of the renal collec ting systems. Mild prostamegaly. Decompressed urinary bladder with circumferential wall thickening an d mild perivesicular stranding. Atherosclerosis of the aorta without aneurysm. Mild infrarenal ectasi a of aorta measures 2.5 x 2.4 cm. No adenopathy. No bowel obstruction or definite bowel wall thickeni ng. Colonic diverticulosis. Mild to moderate fecal retention. Noninflamed appendix. Scattered small b owel air-fluid levels are likely physiologic. Degenerative changes of the spine, pelvis and hips. IMPRESSION: 1. The posterior right ninth and 10th ribs are fractured in at least two places which includes displa luciano fractures. Acute nondisplaced fracture of the medial right 11th rib. 2. Small right-sided pneumothorax with subcutaneous and deep tissue emphysema of the right chest wall extending into the right flank and neck. 3. No acute posttraumatic intra-abdominal or intrapelvic abnormality. 4. Mild urothelial thickening of the renal collecting systems. Correlate with urinalysis to exclude i nfection. ACT 112: Negative or not required by law. Electronically signed by: Bean Daniels M.D. 05/06/2022 12:17 PM
--- NOTE | 2022-05-06 12:18 | XRay Report ---
XR chest 1V portable HISTORY: 76 years-old Male Sepsis acute sepsis. Acute chest trauma status post fall COMPARISON: Chest radiograph March 13, 2022 TECHNIQUE: AP view of the chest FINDINGS: Cardiac mediastinal and hilar silhouettes are within normal limits. Trace right apical pneumothorax, pleural separation of 1.2 cm. Bones appear grossly intact. Moderate subcutaneous emphysema right ches t wall. Small right apical pneumothorax, pleural separation of 1.2 cm. Acute right-sided rib fracture s. IMPRESSION: 1. Small right apical pneumothorax with pleural separation of 1.2 cm. Moderate associated subcutaneou s emphysema. 2. Please refer to the chest CT of same day for discussion of the acute right-sided rib fractures. ACT 112: Negative or not required by law. The above report was generated using voice recognition software. It may contain grammatical, syntax o r spelling errors. Electronically signed by: Bean Daniels M.D. 05/06/2022 12:17 PM
[2022-05-06] MEDS ORDERED: HYDROmorphone INJ 0.5 MG/0.5 ML SYR IV STA (13:34)
--- NOTE | 2022-05-06 14:14 | Procedure Note ---
Procedure Note Date of Service May 06, 2022 Note Procedure Date: noted above Procedure: Tube thoracostomy Pre-procedure Diagnosis: Pneumothorax Post-procedure Diagnosis: same as above Prior to Procedure: Informed Consent: The risks, benefits, indications, potential complications, and alternatives were explained to the patient and patient's and informed consent obtained. Attending Staff: Yomaira Lr DO Indications: The patient is a 76-year-old male with most likely a complicated urinary tract infection who became lightheaded and became syncopal striking an object in his home resulting in rib fractures on the right side as well as a pneumothorax requiring tube thoracostomy. The identity of the patient was confirmed and a bedside time out was performed. Description of Procedure: Patient positioned, the right mid-calvicular line at the second intercostal space was prepped with chlorhexidine and draped in usual sterile fashion. 10 mL of 1% Lidocaine without epinephrine was used to anesthetize the area. A stab incision was made in the mid clavicular line. A guide needle was inserted into the chest space and air was aspirated. A guidewire was inserted into the space and via Seldinger technique a 14 English pigtail chest tube was then inserted. The pigtail was secured via a commercial securement device. The dry VAC was then connected to wall suction. Specimen: Not applicable Complications: None Estimated blood loss: Trace Post procedure chest x-ray has been ordered and reviewed Coding CPT Codes Pulmonary/Thoracic - Pulmonary and Thoracic: 91495 Tube thoracostomy ([id number]) [facility] [place] Codes (Charges) Pulmonary/Thoracic Procedure 1: Pulmonary and Thoracic: 96608 Tube thoracostomy
--- NOTE | 2022-05-06 14:31 | History & Physical Report ---
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 Afebrile and normotensive on admitting evaluate (2) Syncope: Plan: Syncope Patient with lightheadedness dizziness which worsened over 1 day, was ambulating to the bathroom when he passed out and fell hitting the radiator striking his right side Suspect orthostatic in the setting of UTI Following fluids and antibiotics patient is normotensive Has right lower rib pain, denies chest pain. Has not had any shortness of breath either. Post chest tube placement Echo pending EKG normal sinus rhythm, QTc 420, no ST segment changes or inversions (3) Pneumothorax: Plan: R Rib fractures - <4 contiguous. No flail chest. Ground level fall Small right-sided pneumothorax as noted. Discussed with critical care. Chest tube placed, placed to 20 cc suction, pulm consulted. - CThead: No acute findings - CXR: Small right apical pneumothorax with 1.2 cm pleural separation, moderate subcu emphysema. CT-C/A/P: 1. The posterior right ninth and 10th ribs are fractured in at least two places which includes displaced fractures. Acute nondisplaced fracture of the medial right 11th rib. 2. Small right-sided pneumothorax with subcutaneous and deep tissue emphysema of the right chest wall extending into the right flank and neck. 3. No acute posttraumatic intra-abdominal or intrapelvic abnormality. 4. Mild urothelial thickening of the renal collecting systems. Correlate with urinalysis to exclude infection. CT-Cspine: 1. No acute fracture or subluxation of the cervical spine identified. 2. Trace right apical pneumothorax with moderate subcutaneous emphysema of the imaged right upper chest and right neck. Please refer to the chest CT of same day for additional thoracic findings. (4) Multiple fractures of ribs: Plan: as noted (5) GERD (gastroesophageal reflux disease): Plan: PPI daily - Continue H2 qhs (6) BPH (benign prostatic hyperplasia): Plan: LUTS, s/p TURP s/p cystoscopy and TURP 03/28/2022 Last seen 04/2022 as outpatient, has not yet had return of normal bladder activity/function. Straight cathing as needed as outpatient. Consideration of CIC/sacral neuromodulation/Gemtesa in the future Ames placed, draining light yellow urine UA is with 3+ leukocyte esterase, 4+ bacteria, appears infected. UC pending Maintain cath, treat UTI as otherwise Plan History of COVID Recent COVID 1 month ago COVID-negative on admission Patient was not short of breath on presentation Medical History: Reviewed Medications: Reviewed Surgical History: Reviewed Allergies: Reviewed Social History: Social Code Status: Full code History of Present Illness Primary Care Provider: Bernard Arce MD Oswaldo Rick is a 76-year-old male with a past medical history of BPH, lumbar pain, GERD, atonic bladder, recent COVID who presents to the emergency department after an episode of syncope. He gets up at night to self cath after having a TURP several weeks ago, has felt increasingly weak over the last day or 2. Has had fevers and rigors in the last day. Patient went to use the bathroom last night when he felt dizzy and lightheaded, passed out, and struck the wall and fell to the ground. No hematochezia/melena. Patient does have rib fracture and pneumothorax, critical care was consulted for placement of a chest tube while in ER. Leukocytosis: 11.41 Hemoglobin baseline 1314 0.5, 13.3 on admission with MCV 92 Sodium 132 Potassium 3.6 Creatinine baseline less than 1, admitting creatinine 1.32 with estimated clearance 52 Mild T. bili elevation 1.2, D bili 0.4, AST 43 with normal ALT and alk phos High-sensitivity troponin normal Procalcitonin 0.90 UA grossly infected appearing, UC pending COVID negative. CThead: No acute findings CXR: Small right apical pneumothorax with 1.2 cm pleural separation, moderate subcu emphysema. CT-C: 1. The posterior right ninth and 10th ribs are fractured in at least two places which includes displaced fractures. Acute nondisplaced fracture of the medial right 11th rib. 2. Small right-sided pneumothorax with subcutaneous and deep tissue emphysema of the right chest wall extending into the right flank and neck. 3. No acute posttraumatic intra-abdominal or intrapelvic abnormality. 4. Mild urothelial thickening of the renal collecting systems. Correlate with urinalysis to exclude infection. CT-Cspine: 1. No acute fracture or subluxation of the cervical spine identified. 2. Trace right apical pneumothorax with moderate subcutaneous emphysema of the imaged right upper chest and right neck. Please refer to the chest CT of same day for additional thoracic findings. EKG: nsr, , QTc 420, no ST segment changes or T wave inversion Patient reports he has had 3 to 4 days of low-grade fever, shaking, and worsening global weakness without focal findings. Has had to cath twice daily to urinate since his TURP, this has not changed. Was going to the bathroom today when he became more fatigued, and lightheaded,Fell to R side and struck radiator. No shortness of breath/chils Patient has pain, mildly improved since arrival to ER and right lower ribs. No flail chest Denies upper chest pain, sternal pain, left-sided chest pain No shortness of breath, difficulty breathing. Reports he is not short of breath before coming in, and does not feel short of breath after chest tube placement Chronic catheterization for difficulty urinating, ?increased odor with fever and chills prior to admission. Fell striking radiator prior to admission Medical History: Reviewed Medications: Reviewed Surgical History: Reviewed Allergies: Reviewed. Patient may not receive fluoroquinolones due to increased risk of tendon rupture or Flagyl Social History: Rare social alcohol use, none recently. No tobacco use. No recreational drug Code Status: Full code Allergies Allergy/AdvReac Type Severity Reaction Status Date / Time Fish Containing Products Allergy Intermediate Nausea Verified 05/06/22 11:23 shellfish derived Allergy Intermediate Nausea Verified 05/06/22 11:23 ciprofloxacin [From Cipro] AdvReac Unknown see comment Verified 05/06/22 11:23 metronidazole [From Flagyl] AdvReac Unknown see comment Verified 05/06/22 11:23 SEAFOOD Allergy Intermediate nausea Uncoded 05/06/22 11:23 Home Medications Medication Instructions Recorded Confirmed Type zolpidem 5 mg tablet (Ambien) 5 - 10 mg PO HS PRN Insomnia 10/17/18 05/06/22 History ferrous sulfate 325 mg (65 mg 325 mg PO QAM 12/28/18 05/06/22 History iron) tablet (iron) sildenafil 100 mg tablet 100 mg PO DAILY PRN Erectile 12/28/18 05/06/22 History Dysfunction Dhea 1 dose topical QAM 07/19/21 05/06/22 History multivitamin 2 tab PO QAM 07/26/21 05/06/22 History prednisone 10 mg tablet 10 mg PO DAILY PRN Muscle Pain 11/17/21 05/06/22 History cyclobenzaprine 5 mg tablet 5 mg PO TID PRN muscle spasm #30 02/09/22 05/06/22 Rx tabs alprazolam 0.5 mg tablet (Xanax) 0.5 mg PO HS PRN Anxiety 03/21/22 05/06/22 History betamethasone dipropionate 0.05 % 1 applic topical BID PRN Skin 03/21/22 05/06/22 History topical ointment Irritation melatonin 10 mg tablet 10 mg PO HS PRN Sleep 03/21/22 05/06/22 History tamsulosin 0.4 mg capsule (Flomax) 0.4 mg PO HS 03/21/22 05/06/22 History oxybutynin chloride 5 mg 5 mg PO DAILY #30 tabs 04/02/22 05/06/22 Rx tablet,extended release 24 hr (Ditropan XL) famotidine 20 mg tablet 20 mg PO HS 90 days #90 tabs 04/23/22 05/06/22 Rx docusate sodium 100 mg capsule 100 mg PO BID PRN stool softener 05/06/22 05/06/22 History ([facility]) Past Med/Surg History Medical History Abnormal CT scan, gastrointestinal tract hx Anterior tibial tendon tear, traumatic Anxiety Arthritis Back problem BPH (benign prostatic hyperplasia) Claustrophobia Diverticulitis large intestine 11/02/08 admitted to [facility] (proximal sigmoid) Encounter for pre-operative examination Fractured nose 06/2021-DISPLACEMENT FROM FALL; 2nd fall later 2021-refractured nose>reset in dr rico's office GERD (gastroesophageal reflux disease) History of COVID-19 06/2021>TEST DONE AT [facility] *SYMPTOMS>FATIGUE/DIZZINESS (RESOLVED) Hx of basal cell carcinoma Left foot pain Low BP Muscle cramping Left calf muscle cramping since injury to left tibial tendon tear.-"Now occasionally" Partial hamstring tear Penile swelling Plantar fasciitis Plantar fasciitis Tear of left hamstring Surgical History Chalazion REPAIRED X 2 Difficult intubation Possibly. Glidescope #4 with previous tibial tendon repair without issues per 2017 record History of colonoscopy History of cystoscopy History of esophagogastroduodenoscopy (EGD) History of right inguinal hernia repair History of surgical removal of lesion History of tooth extraction Status post tendon repair RT and LT FOOT Family History Father Family history of diabetes mellitus Lung cancer Heavy smoker Brother Diabetes Mother Kidney malignancy Other No family history of adverse response to anesthesia No family history of bleeding disorder Social History Smoking Status: Never smoker Second Hand Exposure: Yes (growing up); Hx Alcohol Use: Yes Alcohol type: beer and wine Alcohol Intake Frequency: 2-4 x/Month Hx Substance Use: No Preferred Language: Serbian Communication Ability: Effective Visual Impairment: No Limitations Cream Tester Required: No Beliefs That Will Affect Care: None marital status: Current Living Situation: Spouse 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 Cooperative. oriented to name/place/year and answers questions appropriately HEENT: normocephalic. Vision/hearing intact Pulm: Right-sided chest tube in place. Postplacement CTAB A&P. -wheezes, - rales, -rhonchi. Symmetrical chest rise. No increased work of breathing. No respiratory distress. Right lower rib tenderness to palpation, no crepitus. No flail chest. Cardiac: RRR, soft systolic murmur. Radial pulses intact and symmetrical. Abdominal: Nontender, nondistended, soft. BS present. : Ames in place draining light yellow urine Extremities: Warm, dry. No edema. Distal extremity strength is intact in all 4 limbs, sensation of soft touch is intact Results & Data Results & Data ([place]) Vital Signs (Past 12 Hours) Vital Signs Temp Pulse Pulse Resp BP BP Pulse Ox 05/06/22 13:00 78 17 98 05/06/22 13:00 73 18 123/64 98 05/06/22 12:45 73 18 98 05/06/22 12:45 73 18 116/71 98 05/06/22 12:30 69 19 100 05/06/22 12:30 116/67 05/06/22 12:30 36.9 C 79 19 116/67 100 05/06/22 12:00 65 20 100 05/06/22 12:20 72 16 100 05/06/22 12:14 77 20 118/58 L 100 05/06/22 12:00 69 20 96 05/06/22 11:50 72 17 99 05/06/22 12:07 71 05/06/22 11:45 69 17 100 05/06/22 11:20 71 17 105/63 98 05/06/22 11:21 60 18 100 05/06/22 10:00 36.7 C 88 14 108/66 95 O2 Del Method O2 Flow Rate 05/06/22 13:00 05/06/22 13:00 05/06/22 12:45 05/06/22 12:45 05/06/22 12:30 05/06/22 12:30 05/06/22 12:30 Nasal Cannula 2 05/06/22 12:00 Nasal Cannula 2 05/06/22 12:20 05/06/22 12:14 05/06/22 12:00 05/06/22 11:50 05/06/22 12:07 05/06/22 11:45 Room Air 05/06/22 11:20 Room Air 05/06/22 11:21 Nasal Cannula 2 05/06/22 10:00 Room Air PG Care Time/CCT Total # of Minutes Spent Total Time Spent with Patient: Total time spent is greater than 50% in coordination of care (as documented) at patient's floor/unit and/or counseling patient: Coding Level of Care Code 46320 INT INP/OBS CARE 3/75MIN Diagnoses Urinary tract infection N39.0 Hematuria presence: without hematuria Urinary tract infection type: site unspecified Syncope R55 Syncope type: unspecified Pneumothorax S27.0XXA Encounter type: initial encounter Pneumothorax type: traumatic Multiple fractures of ribs S22.41XA Encounter type: initial encounter Fracture type: closed Laterality: right GERD (gastroesophageal reflux disease) K21.9 BPH (benign prostatic hyperplasia) N40.0 (1) Urinary tract infection Hematuria presence: without hematuria Urinary tract infection type: site unspecified Qualified Code(s): N39.0 - Urinary tract infection, site not specified (2) Syncope Syncope type: unspecified Qualified Code(s): R55 - Syncope and collapse (3) Pneumothorax Encounter type: initial encounter Pneumothorax type: traumatic Qualified Code(s): S27.0XXA - Traumatic pneumothorax, initial encounter (4) Multiple fractures of ribs Encounter type: initial encounter Fracture type: closed Laterality: right Qualified Code(s): S22.41XA - Multiple fractures of ribs, right side, initial encounter for closed fracture
--- NOTE | 2022-05-06 14:35 | XRay Report ---
XR chest 1V portable HISTORY: 76 years-old Male chest tube right-sided pneumothorax COMPARISON: Chest CT of same day TECHNIQUE: AP view of the chest FINDINGS: Status post placement of a pleural drainage catheter with distal tip projected over the right upper l romel. Decreased size of the small right apical pneumothorax, now with pleural separation of 2 mm. Subc utaneous emphysema of the right chest wall redemonstrated. Mild right basilar atelectasis. The left l romel is clear. No pleural effusion or overt pulmonary edema. Degenerative changes of the shoulders and spine. IMPRESSION: Status post placement of a right-sided chest tube. Tiny right apical pneumothorax has dec reased in size from prior. ACT 112: Negative or not required by law. The above report was generated using voice recognition software. It may contain grammatical, syntax o r spelling errors. Electronically signed by: Bean Daniels M.D. 05/06/2022 2:33 PM
[2022-05-06] MEDS ORDERED: ACETAMINOPHEN 1,000 MG/100 ML VIAL IV PRN (14:45)
--- NOTE | 2022-05-06 14:51 | Electrocardiogram Report ---
Test Reason : Blood Pressure : / mmHG Vent. Rate : 076 BPM Atrial Rate : 076 BPM P-R Int : 164 ms QRS Dur : 104 ms QT Int : 374 ms P-R-T Axes : 075 027 032 degrees QTc Int : 420 ms Normal sinus rhythm with sinus arrhythmia Incomplete right bundle branch block Borderline ECG When compared with ECG of 13-MAR-2022 15:13, [place] interval has decreased Confirmed by Norbert Adrian ([id number]) on 05/06/2022 2:50:57 PM Referred By: REFERRED SELF Confirmed By:Norbert Adrian
[2022-05-06] MEDS ORDERED: ALPRAZolam 0.5 MG TABLET PO PRN (16:41)
[2022-05-06] MEDS ORDERED: ONDANSETRON INJ 2 MG/ML 2 ML VIAL IV PRN (16:41)
[2022-05-06] MEDS ORDERED: NITROGLYCERIN SL 0.4 MG/TAB TAB SL PRN (16:41)
[2022-05-06] MEDS: PIPERACILLIN/TAZOBACTAM 3.375 GM in DEXTROSE 5% 100 ML IV SCH (17:24)
[2022-05-06] MEDS: NORMOSOL-R 1,000 ML IV SCH (17:26)
[2022-05-06] MEDS: HYDROmorphone INJ 0.5 MG/0.5 ML SYR IV PRN ×2 (17:46→23:48)
[2022-05-06] MEDS: ACETAMINOPHEN 325 MG TAB PO PRN (20:00)
[2022-05-06] MEDS: CYCLOBENZAPRINE HCL 5 MG TAB PO PRN (20:01)
[2022-05-06] MEDS: FAMOTIDINE 20 MG TAB PO SCH (20:01)
[2022-05-06] MEDS: TAMSULOSIN HCL 0.4 MG CAP PO SCH (20:01)
[2022-05-06] MEDS ORDERED: MoRPHine SULFATE 2 MG/ML CARP IV STA (21:07)
[2022-05-06 21:57] LABS: Hematocrit (blood only) 33.9 % (42.0-52.0); Hemoglobin 11.8 g/dl (14.0-18.0); Mean Corpuscular Hemoglobin 33.1 pg (25.0-34.0); Mean Corpuscular Hgb Conc 34.8 g/dL (32.0-36.0); Mean Corpuscular Volume 95.2 fL (80.0-100.0); Mean Platelet Volume 11.3 fL (9.4-12.4); Platelet Count 127 K/uL (130-400); RDW Coefficient of Variation 12.1 % (11.5-14.5); RDW Standard Deviation 42.5 fL (36.4-46.3); Red Blood Count 3.56 M/uL (4.70-6.10); White Blood Count 11.95 K/ul (4.8-10.8)
[2022-05-06 22:12] LABS: BUN Creatinine Ratio 12.7 (10-20); Calcium 7.7 mg/dl (8.5-10.1); Creatinine Clr Calc Pharmacy 43.9 ml/min; Est GFR (African American) 48.9 ml/min; Est GFR (Non-African American) 42.2 ml/min; Magnesium 1.9 mg/dl (1.7-2.4); Potassium 3.8 mmol/L (3.5-5.1)
[2022-05-06 22:28] LABS: Troponin I High Sensitivity 35.5 pg/ml (0-20)
[2022-05-06] MEDS ORDERED: LACTATED RINGER'S 500 ML IV ONE (22:53)
[2022-05-07] MEDS: NORMOSOL-R 1,000 ML IV SCH ×3 (01:34→16:31)
[2022-05-07] MEDS: ACETAMINOPHEN 325 MG TAB PO PRN (01:35)
[2022-05-07] MEDS: CYCLOBENZAPRINE HCL 5 MG TAB PO PRN ×2 (01:35→08:39)
[2022-05-07] MEDS: PIPERACILLIN/TAZOBACTAM 3.375 GM in DEXTROSE 5% 100 ML IV SCH ×2 (01:35→08:47)
[2022-05-07] MEDS ORDERED: HYDROmorphone INJ 0.5 MG/0.5 ML SYR IV STA (01:42)
[2022-05-07] MEDS: HYDROmorphone INJ 0.5 MG/0.5 ML SYR IV PRN ×4 (05:45→21:22)
[2022-05-07 06:51] LABS: Basophils # (auto) 0.02 K/uL (0-0.2); Basophils % (auto) 0.2 %; Hematocrit (blood only) 33.1 % (42.0-52.0); Hemoglobin 11.5 g/dl (14.0-18.0); Immature Granulocytes # (auto) 0.03 K/uL (0.01-0.20); Immature Granulocytes % (auto) 0.3 %; Lymphocytes # (auto) 0.52 K/uL (1.2-3.4); Lymphocytes % (auto) 4.9 %; Mean Corpuscular Hemoglobin 33.3 pg (25.0-34.0); Mean Corpuscular Hgb Conc 34.7 g/dL (32.0-36.0); Mean Corpuscular Volume 95.9 fL (80.0-100.0); Mean Platelet Volume 11.8 fL (9.4-12.4); Monocytes # (auto) 1.25 K/uL (0.11-0.59); Monocytes % (auto) 11.7 %; Neutrophils # (auto) 8.86 K/uL (1.40-6.50); Neutrophils % (auto) 82.9 %; Platelet Count 127 K/uL (130-400); RDW Coefficient of Variation 12.3 % (11.5-14.5); RDW Standard Deviation 42.8 fL (36.4-46.3); Red Blood Count 3.45 M/uL (4.70-6.10); White Blood Count 10.68 K/ul (4.8-10.8)
[2022-05-07 07:21] LABS: BUN Creatinine Ratio 14.6 (10-20); Calcium 7.9 mg/dl (8.5-10.1); Creatinine Clr Calc Pharmacy 45.7 ml/min; Est GFR (African American) 51.3 ml/min; Est GFR (Non-African American) 44.2 ml/min; Potassium 3.7 mmol/L (3.5-5.1)
--- NOTE | 2022-05-07 07:31 | XRay Report ---
SINGLE VIEW CHEST CLINICAL HISTORY: Hypoxia. FINDINGS: An AP, portable, upright chest radiograph is compared to chest x-ray and chest CT dated 05/06. The cardiomediastinal silhouette is top normal for projection. A right-sided chest tube is unc hanged in position. Atelectasis is seen at both lung bases. No airspace consolidation or large pleura l effusion is identified. No residual pneumothorax is clearly seen. The bony thorax is grossly intact . Simultaneous emphysema is seen in the right lower neck and throughout the right chest wall. IMPRESSION: 1. A right-sided chest tube is unchanged in position. No residual pneumothorax is clearly identified. 2. There is no airspace consolidation or large pleural effusion. ACT 112: Negative or not required by law. Electronically signed by: Jameson Haro M.D. 05/07/2022 7:29 AM
--- NOTE | 2022-05-07 07:39 | Hospitalist Progress Note ---
Date of Service May 07, 2022 Assessment & Plan (1) Sepsis due to gram-negative UTI: Plan: - On admission with fevers, intermittent tachycardia, UA appearing grossly infected. - History of urinary retention (s/p TURP 03/28/2022), unfortunately with continued urinary retention issues requiring 4 times daily self-catheterization. - Complicated catheter-associated and urinary retention-associated UTI. - Lactate normal. - Has been getting IVF since admission, continue IVF especially given ongoing fevers and continued DEMETRIUS. - Was on Zosyn starting 05/06 -> deescalated 05/07 to ceftriaxone after BCx/UCx showing E. coli/GNR. - Patient unable to receive fluoroquinolones due to increased Hx of multiple tendon rupture per Orthopedics. - Tylenol/ice as needed for fevers; defer NSAIDs given DEMETRIUS. (2) Gram-negative bacteremia: Plan: - BCx 05/06/22 showing gram-negative bacilli, BCx PCR growing E. coli. - Ceftriaxone as described above (Abx started 05/06). (3) Pneumothorax: Plan: - R Rib fractures, <4 contiguous. Ground level fall. - CThead: No acute findings. - CXR: Small right apical pneumothorax with 1.2 cm pleural separation, moderate subcu emphysema. - CT-C/A/P: 1. The posterior right ninth and 10th ribs are fractured in at least two places which includes displaced fractures. Acute nondisplaced fracture of the medial right 11th rib. 2. Small right-sided pneumothorax with subcutaneous and deep tissue emphysema of the right chest wall extending into the right flank and neck. 3. No acute post-traumatic intra-abdominal or intrapelvic abnormality. - CT-C spine: 1. No acute fracture or subluxation of the cervical spine identified. 2. Trace right apical pneumothorax with moderate subcutaneous emphysema of the imaged right upper chest and right neck. - Pulm consulted and appreciate recommendations: s/p chest tube 05/06 with improvement in dyspnea and pneumo on imaging. - Daily CXR. - If worsening in clinical status or worsening Hgb, consider transfer to tertiary facility with trauma surgery. - Pain control with scheduled Tylenol and Voltaren/lidocaine, with oxycodone as needed for moderate pain and Dilaudid as needed for severe/breakthrough pain. - Incentive spirometer encouraged. (4) Syncope: Plan: Patient with lightheadedness/dizziness which worsened over 1 day, was ambulating to the bathroom when he passed out and fell hitting the radiator striking his right side. Suspect orthostatic in the setting of sepsis and bacteremia. Following fluids and antibiotics patient is normotensive. Has right lower rib and chest wall pain. Echo ordered 05/07. EKG normal sinus rhythm, QTc 420, no ST segment changes or inversions. (5) DEMETRIUS (acute kidney injury): Plan: - 2/2 sepsis and UTI, prerenal in the setting of ongoing fevers and insensible loss. - IV fluids as above. - Daily BMP; Creatinine 1.57 -> 1.51 so far this admission with baseline ~1.0. (6) BPH (benign prostatic hyperplasia): Plan: - S/p cystoscopy and TURP 03/28/2022 for BPH causing need for intermittent catheterization. Last seen 04/2022 as outpatient, has not yet had return of normal bladder activity/function. Straight cathing as needed outpatient. Consideration of CIC/sacral neuromodulation/Gemtesa in the future. Ames placed, draining light yellow urine, remove as able. UA is with 3+ leukocyte esterase, 4+ bacteria, appears infected. UCx as above. Maintain cath, treat UTI as otherwise. (7) Multiple fractures of ribs: Plan: - As noted above, pain control. (8) GERD (gastroesophageal reflux disease): Plan: - PPI daily. - Continue H2 qHS. Plan Code Status: Full code Diet: Regular easy to chew diet Holding chemoppx for DVT in setting of acute traumatic injury Telemetry status for now Admission and Anticipated Discharge Date Admission Date: May 06, 2022 Subjective Overnight with hypoxia requiring 2-3LNC, as well as right chest wall/right back pain at location of broken ribs/chest tube. Has also had intermittent fevers overnight. Patient denies sensation of dyspnea on my interview today, and reports pain is controlled with IV and PO pain medications. Review of Systems Review of Systems: All systems reviewed & are unremarkable except as noted in Subjective Physical Exam Constitutional: WD/WN, vitals as above Respiratory: shallow breathing but able to take deep breath (with pain) with prompting, lungs CTA Cardiovascular: RRR, no murmur, no edema Gastrointestinal (Abdomen): normal bowel sounds, soft, nontender, no hepatosplenomegaly Musculoskeletal: pain to palpation over right chest wall and right back Skin: no rashes, warm and dry Psychiatric: A+Ox3, euthymic affect Results & Data Results & Data ([facility]) Vital Signs (Past 12 Hours) Vital Signs Temp Pulse Pulse Pulse Resp BP Pulse Ox 05/07/22 07:33 37.8 C H 87 20 129/78 92 05/07/22 04:15 37.0 C 64 12 98/54 L 98 05/07/22 03:05 58 L 05/07/22 01:23 72 114/68 05/06/22 23:00 36.7 C 58 L 16 92/56 L 99 05/06/22 20:30 05/06/22 20:42 58 L 92/56 L 05/06/22 20:30 57 L 86/52 L O2 Del Method O2 Flow Rate 05/07/22 07:33 Nasal Cannula 2 05/07/22 04:15 Nasal Cannula 2 05/07/22 03:05 05/07/22 01:23 05/06/22 23:00 Nasal Cannula 2 05/06/22 20:30 Nasal Cannula 2 05/06/22 20:42 05/06/22 20:30 PG Care Time/CCT Total # of Minutes Spent Total Time Spent with Patient: Total time spent is greater than 50% in coordination of care (as documented) at patient's floor/unit and/or counseling patient: Coding Level of Care Code 00395 SUB INP/OBS CARE 3/50MIN Diagnoses Sepsis due to gram-negative UTI A41.50; N39.0 Gram-negative bacteremia R78.81 Pneumothorax S27.0XXA Encounter type: initial encounter Pneumothorax type: traumatic Syncope R55 Syncope type: unspecified DEMETRIUS (acute kidney injury) N17.9 BPH (benign prostatic hyperplasia) N40.0 Multiple fractures of ribs S22.41XA Encounter type: initial encounter Fracture type: closed Laterality: right GERD (gastroesophageal reflux disease) K21.9 (3) Pneumothorax Encounter type: initial encounter Pneumothorax type: traumatic Qualified Code(s): S27.0XXA - Traumatic pneumothorax, initial encounter (4) Syncope Syncope type: unspecified Qualified Code(s): R55 - Syncope and collapse (7) Multiple fractures of ribs Encounter type: initial encounter Fracture type: closed Laterality: right Qualified Code(s): S22.41XA - Multiple fractures of ribs, right side, initial encounter for closed fracture
[2022-05-07] MEDS ORDERED: ACETAMINOPHEN 1000 MG/100 ML IV IV ONE (07:42)
[2022-05-07] MEDS ORDERED: KETOROLAC TROMETHAMINE 10 MG TABLET PO STA (07:42)
[2022-05-07] MEDS ORDERED: HYDROmorphone INJ 1 MG/ML SYRINGE IV PRN (07:48)
[2022-05-07] MEDS ORDERED: ACETAMINOPHEN 325 MG TAB PO PRN (07:51)
[2022-05-07] MEDS ORDERED: HYDROmorphone INJ 0.5 MG/0.5 ML SYR IV PRN (07:59)
--- NOTE | 2022-05-07 08:26 | XRay Report ---
XR chest 1V portable HISTORY: 76 years-old Male s/p chest tube follow-up study in a patient with right-sided chest tube p lacement COMPARISON: Chest radiograph 05/06/2022 TECHNIQUE: Semiupright AP view of the chest FINDINGS: Cardiomediastinal and hilar silhouettes are unchanged. Mild right hemidiaphragmatic elevation. Stable positioning of the right-sided chest tube. Persistent subcutaneous emphysema of the right chest wall . Small right apical pneumothorax with pleural separation of 10 mm. Pulmonary vascular congestion. Mi ld bibasilar densities suggest atelectasis. IMPRESSION: Stable positioning of the right-sided chest tube with probable small residual right apica l pneumothorax. ACT 112: Negative or not required by law. The above report was generated using voice recognition software. It may contain grammatical, syntax o r spelling errors. Electronically signed by: Bean Daniels M.D. 05/07/2022 8:25 AM
[2022-05-07] MEDS: OXYBUTYNIN CHLORIDE XL 5 MG TABCR PO SCH (08:41)
--- NOTE | 2022-05-07 08:50 | Pulmonary Consultation ---
Date of Consultation May 07, 2022 Assessment & Plan (1) Traumatic pneumothorax: Continue chest tube. We will attempt waterseal and repeat x-ray later today. (2) Subcutaneous emphysema: Will reabsorb over time. No interventions required at this time. (3) Hypoxia: Continue to wean oxygen to maintain saturations above 92%. (4) Multiple fractures of ribs: Pain control per primary team. Should he have evidence of decompensation inclu ding hemothorax or worsening hypoxemia, please transfer the patient to tertiary center for trauma evaluation. Encounter type: initial encounter Fracture type: closed Laterality: right Qualified Code(s): S22.41XA - Multiple fractures of ribs, right side, initial encounter for closed fracture Plan Pulmonary will continue to follow. Thank you for allowing us to participate in the care of this patient. History of Present Illness Reason for Consultation: Traumatic pneumothorax Attending Physician: Lucita Roman DO History of Present Illness 76-year-old male with a past medical history of BPH, GERD, recent COVID and atonic bladder who presented to the ER after syncope. He apparently has been feeling increasingly weak over the past 2 to 3 days. He had fevers and rigors yesterday. He is being treated for a UTI. When going to the bathroom at home he felt dizzy, had a syncopal event and struck the wall as he fell to the ground. Patient had a right apical pigtail catheter placed for a small to moderate right-sided pneumothorax. There was also evidence of rib fractures and subcutaneous air. Currently he is saturating in the 90s on low-flow oxygen. Repeat chest x-ray today demonstrates a small residual apical pneumothorax under 1 cm. Subcutaneous air persist. Hemoglobin is stable. Allergies Allergy/AdvReac Type Severity Reaction Status Date / Time Fish Containing Products Allergy Intermediate Nausea Verified 05/06/22 11:23 shellfish derived Allergy Intermediate Nausea Verified 05/06/22 11:23 ciprofloxacin [From Cipro] AdvReac Unknown see comment Verified 05/06/22 11:23 metronidazole [From Flagyl] AdvReac Unknown see comment Verified 05/06/22 11:23 Home Medications Medication Instructions Recorded Confirmed Type zolpidem 5 mg tablet (Ambien) 5 - 10 mg PO HS PRN Insomnia 10/17/18 05/06/22 History ferrous sulfate 325 mg (65 mg 325 mg PO QAM 12/28/18 05/06/22 History iron) tablet (iron) sildenafil 100 mg tablet 100 mg PO DAILY PRN Erectile 12/28/18 05/06/22 History Dysfunction Dhea 1 dose topical QAM 07/19/21 05/06/22 History multivitamin 2 tab PO QAM 07/26/21 05/06/22 History prednisone 10 mg tablet 10 mg PO DAILY PRN back spasm 11/17/21 05/06/22 History cyclobenzaprine 5 mg tablet 5 mg PO TID PRN muscle spasm #30 02/09/22 05/06/22 R x tabs alprazolam 0.5 mg tablet (Xanax) 0.5 mg PO HS PRN Anxiety 03/21/22 05/06/22 History betamethasone dipropionate 0.05 % 1 applic topical BID PRN Skin 03/21/22 05/06/22 History topical ointment Irritation melatonin 10 mg tablet 10 mg PO HS PRN Sleep 03/21/22 05/06/22 History tamsulosin 0.4 mg capsule (Flomax) 0.4 mg PO HS 03/21/22 05/06/22 History oxybutynin chloride 5 mg 5 mg PO DAILY #30 tabs 04/02/22 05/06/22 Rx tablet,extended release 24 hr (Ditropan XL) famotidine 20 mg tablet 20 mg PO HS 90 days #90 tabs 04/23/22 05/06/22 Rx docusate sodium 100 mg capsule 100 mg PO BID PRN stool softener 05/06/22 05/06/22 History (Col-Rite) Patient History Medical History (Updated 05/07/22 @ 08:48 by Jose Azar MD) Abnormal CT scan, gastrointestinal tract hx Anterior tibial tendon tear, traumatic Anxiety Arthritis Back problem BPH (benign prostatic hyperplasia) Claustrophobia Diverticulitis large intestine 11/02/08 admitted to [facility] (proximal sigmoid) Encounter for pre-operative examination Fractured nose 06/2021-DISPLACEMENT FROM FALL; 2nd fall later 2021-refractured nose>reset in dr rico's office GERD (gastroesophageal reflux disease) History of COVID-19 06/2021>TEST DONE AT [facility] *SYMPTOMS>FATIGUE/DIZZINESS (RESOLVED) Hx of basal cell carcinoma Hypoxia Left foot pain Low BP Muscle cramping Left calf muscle cramping since injury to left tibial tendon tear.-"Now occasionally" Partial hamstring tear Penile swelling Plantar fasciitis Plantar fasciitis Subcutaneous emphysema Tear of left hamstring Traumatic pneumothorax Surgical History Chalazion REPAIRED X 2 Difficult intubation Possibly. Glidescope #4 with previous tibial tendon repair without issues per 2017 record History of colonoscopy History of cystoscopy History of esophagogastroduodenoscopy (EGD) History of right inguinal hernia repair History of surgical removal of lesion History of tooth extraction Status post tendon repair RT and LT FOOT Family History Father Family history of diabetes mellitus Lung cancer Heavy smoker Brother Diabetes Mother Kidney malignancy Other No family history of adverse response to anesthesia No family history of bleeding disorder Social History Smoking Status: Never smoker Second Hand Exposure: Yes (growing up); Hx Alcohol Use: Yes Alcohol type: beer Alcohol Intake Frequency: 2-4 x/Month Hx Substance Use: No Preferred Language: Tajik Communication Ability: Effective Visual Impairment: No Limitations Board Attendant Required: No Beliefs That Will Affect Care: None marital status: Current Living Situation: Spouse 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 Patient is in no apparent distress. Patient is well-developed. Eyes: Pupils are equal round and reactive to light. Conjunctivae are normal. Anicteric sclera. Ears nose, mouth and throat: Deferred Neck: Trachea is midline. Visual inspection is normal. Respiratory: Diminished bibasilar. Right apical pigtail catheter in place with dressing. Cardiovascular: Regular rate and rhythm. No murmurs. No edema. Gastrointestinal: Normal bowel sounds, soft, nontender and nondistended. No hepatosplenomegaly noted. Musculoskeletal: No cyanosis. Patient is able to move all extremities. Strength is 5 out of 5 in the upper and lower extremities. Skin: No rashes, warm dry and intact. Neurologic: No obvious focal neurological deficits seen. Psychiatric: Alert and oriented x3 with a euthymic affect. Results & Data Results & Data ([facility]) Vital Signs (Past 12 Hours) Vital Signs Temp Pulse Pulse Pulse Resp BP Pulse Ox 05/07/22 07:57 78 22 117/64 94 05/07/22 07:33 37.8 C H 87 20 129/78 92 05/07/22 04:15 37.0 C 64 12 98/54 L 98 05/07/22 03:05 58 L 05/07/22 01:23 72 114/68 05/06/22 23:00 36.7 C 58 L 16 92/56 L 99 O2 Del Method O2 Flow Rate 05/07/22 07:57 Nasal Cannula 3 05/07/22 07:33 Nasal Cannula 2 05/07/22 04:15 Nasal Cannula 2 05/07/22 03:05 05/07/22 01:23 05/06/22 23:00 Nasal Cannula 2 PG Care Time/CCT Total # of Minutes Spent Total Time Spent with Patient: Total time spent is greater than 50% in coordination of care (as documented) at patient's floor/unit and/or counseling patient: Coding Level of Care Code 50395 INT INP/OBS CARE 2/55MIN Diagnoses Traumatic pneumothorax S27.0XXA Subcutaneous emphysema T79.7XXA Hypoxia R09.02 Multiple fractures of ribs S22.41XA Encounter type: initial encounter Fracture type: closed Laterality: right
[2022-05-07 10:05] LABS: A calco-baum cmplx NotReported Not Detected (NotDetected); Bact fragilis Not Reported Not Detected (NotDetected); C auris Not Reported Not Detected (NotDetected); CTX-M Resistant Gene Not Detected (NotDetected); Calbicans Not Reported Not Detected (NotDetected); Candida glabrata Not Reported Not Detected (NotDetected); Candida krusei Not Reported Not Detected (NotDetected); Cneoformans/gatti Not Reported Not Detected (NotDetected); Cparapsilosis Not Reported Not Detected (NotDetected); Ctropicalis Not Reported Not Detected (NotDetected); E cloacae compx Not Reported Not Detected (NotDetected); Efaecalis Not Reported Not Detected (NotDetected); Efaecium Not Reported Not Detected (NotDetected); Enterobacterales DETECTED (NotDetected); Enterobacterales Not Reported DETECTED (NotDetected); Escherichia coli Not Reported DETECTED (NotDetected); H influenzae Not Reported Not Detected (NotDetected); IMP Resistant Gene Not Detected (NotDetected); K aerogenes Not Reported Not Detected (NotDetected); KPC Resistant Gene Not Detected (NotDetected); Koxytoca Not Reported Not Detected (NotDetected); Kpneumoniae grp Not Reported Not Detected (NotDetected); Lmonocyt Not Reported Not Detected (NotDetected); N meningitidis Not Reported Not Detected (NotDetected); NDM Resistant Gene Not Detected (NotDetected); OXA 48 Like Resistant Gene Not Detected (NotDetected); P aeruginosa Not Reported Not Detected (NotDetected); Proteus spp Not Reported Not Detected (NotDetected); Salmonella spp Not Reported Not Detected (NotDetected); Smarcescens Not Reported Not Detected (NotDetected); Staph lugdunensis Not Reported Not Detected (NotDetected); Staph spp. Not Reported Not Detected (NotDetected); Staphaureus Not Reported Not Detected (NotDetected); Staphepi Not Reported Not Detected (NotDetected); Stenmaltophilia Not Reported Not Detected (NotDetected); Strep agal(GrpB) Not Reported Not Detected (NotDetected); Strep pneum Not Reported Not Detected (NotDetected); Strep pyog (GrpA) Not Reported Not Detected (NotDetected); Strep spp Not Reported Not Detected (NotDetected); VIM Resistant Gene Not Detected (NotDetected); mcr-1 Colistin Resistant Gene Not Detected (NotDetected)
[2022-05-07] MEDS: ACETAMINOPHEN 500 MG TAB PO SCH ×2 (10:33→18:30)
[2022-05-07] MEDS: DICLOFENAC SOD 1% GEL 100 GM TUBE EXT SCH ×3 (10:36→17:26)
[2022-05-07] MEDS: PANTOprazole 40 MG in SYRINGE 0 ML IV SCH (10:38)
[2022-05-07] MEDS: oxyCODONE HCL IR 5 MG TAB (IMMEDIATE RELEASE) PO PRN ×2 (12:40→18:31)
[2022-05-07] MEDS: DOCUSATE SODIUM 100 MG CAP PO PRN ×2 (12:41→20:19)
--- NOTE | 2022-05-07 14:19 | XRay Report ---
XR chest 1V portable CLINICAL HISTORY: s/p waterseal TECHNIQUE: Single frontal radiograph of the chest was obtained. Comparison: Comparison is made to chest radiograph 05/07/2022 FINDINGS: Right pleural catheter is unchanged. The cardiomediastinal silhouette is normal. Bilateral lower lung predominant airspace opacities are seen. Previously noted right pneumothorax is no longer well seen. Subcutaneous emphysema is unchanged. IMPRESSION: 1. Interval decrease in size of the right apical pneumothorax with no radiographic evidence pneumoth orax seen. Stable position of right pleural catheter. 2. Bibasilar densities are again seen compatible with atelectasis. ACT 112: Negative or not required by law. Electronically signed by: Vidal Abbott M.D. 05/07/2022 2:18 PM
[2022-05-07] MEDS ORDERED: ACETAMINOPHEN 1,000 MG/100 ML VIAL IV SCH (16:00)
[2022-05-07] MEDS: cefTRIAXone SODIUM 2,000 MG in DEXTROSE 5% 50 ML IV SCH (16:26)
[2022-05-07] MEDS: LIDOCAINE 5% 1 PATCH TD SCH (17:25)
[2022-05-07] MEDS: FAMOTIDINE 20 MG TAB PO SCH (20:14)
[2022-05-07] MEDS: TAMSULOSIN HCL 0.4 MG CAP PO SCH (20:14)
[2022-05-08] MEDS: oxyCODONE HCL IR 5 MG TAB (IMMEDIATE RELEASE) PO PRN ×4 (00:46→19:41)
[2022-05-08] MEDS: NORMOSOL-R 1,000 ML IV SCH ×2 (00:46→08:22)
[2022-05-08] MEDS: DICLOFENAC SOD 1% GEL 100 GM TUBE EXT SCH ×5 (00:47→23:56)
[2022-05-08] MEDS: ACETAMINOPHEN 500 MG TAB PO SCH ×3 (02:09→17:25)
[2022-05-08] MEDS: CYCLOBENZAPRINE HCL 5 MG TAB PO PRN ×2 (02:42→11:34)
[2022-05-08] MEDS: HYDROmorphone INJ 0.5 MG/0.5 ML SYR IV PRN ×4 (03:38→22:09)
--- NOTE | 2022-05-08 05:16 | Electrocardiogram Report ---
Test Reason : Blood Pressure : / mmHG Vent. Rate : 057 BPM Atrial Rate : 057 BPM P-R Int : 166 ms QRS Dur : 118 ms QT Int : 408 ms P-R-T Axes : 072 031 023 degrees QTc Int : 397 ms Poor data quality, interpretation may be adversely affected Sinus bradycardia Consider Brugada pattern Non-specific intra-ventricular conduction delay Borderline ECG When compared with ECG of 06-MAY-2022 10:30, No significant change was found Confirmed by Nathaniel Grady ([id number]) on 05/08/2022 5:16:22 AM Referred By: REFERRED SELF Confirmed By:Nathaniel Grady
[2022-05-08 06:49] LABS: Basophils # (auto) 0.01 K/uL (0-0.2); Basophils % (auto) 0.1 %; Eosinophils # (auto) 0.05 K/uL (0-0.50); Eosinophils % (auto) 0.5 %; Hematocrit (blood only) 31.3 % (42.0-52.0); Immature Granulocytes # (auto) 0.08 K/uL (0.01-0.20); Immature Granulocytes % (auto) 0.7 %; Lymphocytes # (auto) 0.96 K/uL (1.2-3.4); Lymphocytes % (auto) 8.8 %; Mean Corpuscular Hemoglobin 32.9 pg (25.0-34.0); Mean Corpuscular Hgb Conc 35.1 g/dL (32.0-36.0); Mean Corpuscular Volume 93.7 fL (80.0-100.0); Neutrophils # (auto) 8.57 K/uL (1.40-6.50); Neutrophils % (auto) 78.9 %; Platelet Count 119 K/uL (130-400); RDW Coefficient of Variation 12.1 % (11.5-14.5); Red Blood Count 3.34 M/uL (4.70-6.10); White Blood Count 10.87 K/ul (4.8-10.8)
[2022-05-08 07:10] LABS: BUN Creatinine Ratio 16.7 (10-20); Calcium 7.8 mg/dl (8.5-10.1); Creatinine Clr Calc Pharmacy 42.6 ml/min; Est GFR (African American) 47.1 ml/min; Est GFR (Non-African American) 40.6 ml/min; Potassium 3.2 mmol/L (3.5-5.1)
--- NOTE | 2022-05-08 08:17 | XRay Report ---
XR chest 1V portable CLINICAL HISTORY: Follow-up pneumothorax TECHNIQUE: Single frontal radiograph of the chest was obtained. Comparison: Comparison is made to chest radiograph 05/07/2022 FINDINGS: A pigtail catheter terminates in the right hemithorax. The cardiomediastinal silhouette is normal. Bi lateral lower lung predominant airspace opacities are seen. There is right-sided subcutaneous emphyse ma without a visualized pneumothorax. IMPRESSION: 1. No visible pneumothorax in this patient with a right pleural catheter in place. 2. Redemonstration of bibasilar opacities, somewhat more conspicuous compared to yesterday's exam. T his likely represents atelectasis with or without superimposed aspiration/pneumonia. ACT 112: Negative or not required by law. Electronically signed by: Vidal Abbott M.D. 05/08/2022 8:16 AM
[2022-05-08] MEDS: OXYBUTYNIN CHLORIDE XL 5 MG TABCR PO SCH (08:31)
[2022-05-08] MEDS: LIDOCAINE 5% 1 PATCH TD SCH (08:31)
--- NOTE | 2022-05-08 09:18 | Hospitalist Progress Note ---
Date of Service May 08, 2022 Assessment & Plan (1) Sepsis due to gram-negative UTI: Plan: - On admission with fevers, intermittent tachycardia, UA appearing grossly infected. - History of urinary retention (s/p TURP 03/28/2022), unfortunately with continued urinary retention issues requiring 4 times daily self-catheterization. - Complicated catheter-associated and urinary retention-associated UTI. - Lactate normal. - UCx with E. coli sensitive to ceftriaxone. - Has been getting IVF since admission, discontinued today in favor of oral fluids while awaiting Urine/Serum Osm. - Was on Zosyn starting 05/06 -> deescalated 05/07 to ceftriaxone after BCx/UCx showing E. coli. - Patient unable to receive fluoroquinolones due to increased Hx of multiple tendon rupture per Orthopedics. - Tylenol/ice as needed for fevers; defer NSAIDs given DEMETRIUS. (2) Gram-negative bacteremia: Plan: - BCx 05/06/22 showing gram-negative bacilli, BCx PCR growing E. coli. - Ceftriaxone as described above (Abx started 05/06), will need total of ~2 weeks of antibiotic therapy, but can be deescalated to oral for discharge. (3) Pneumothorax: Plan: - R Rib fractures, <4 contiguous. Ground level fall. - CThead: No acute findings. - CXR: Small right apical pneumothorax with 1.2 cm pleural separation, moderate subcu emphysema. - CT-C/A/P: 1. The posterior right ninth and 10th ribs are fractured in at least two places which includes displaced fractures. Acute nondisplaced fracture of the medial right 11th rib. 2. Small right-sided pneumothorax with subcutaneous and deep tissue emphysema of the right chest wall extending into the right flank and neck. 3. No acute post-traumatic intra-abdominal or intrapelvic abnormality. - CT-C spine: 1. No acute fracture or subluxation of the cervical spine identified. 2. Trace right apical pneumothorax with moderate subcutaneous emphysema of the imaged right upper chest and right neck. - Pulm consulted and appreciate recommendations: s/p chest tube 05/06 with improvement in dyspnea and pneumo on imaging, chest tube removed today 05/08. - Daily CXR. - If worsening in clinical status or worsening Hgb, consider transfer to tertiary facility with trauma surgery. - Pain control with scheduled Tylenol and Voltaren/lidocaine, with oxycodone as needed for moderate pain and Dilaudid as needed for severe/breakthrough pain. - Incentive spirometer encouraged. (4) Syncope: Plan: Patient with lightheadedness/dizziness which worsened over 1 day, was ambulating to the bathroom when he passed out and fell hitting the radiator striking his right side. Suspect orthostatic in the setting of sepsis and bacteremia. Following fluids and antibiotics patient is normotensive. Has right lower rib and chest wall pain. Echo ordered 05/07 with LVEF 65-70%, no regional wall motion abnormalities, moderate pulmonary HTN. EKG normal sinus rhythm, QTc 420, no ST segment changes or inversions. (5) DEMETRIUS (acute kidney injury): Plan: - 2/2 sepsis and UTI, suspected to be prerenal in the setting of urosepsis, but perhaps also post-obstructive from BPH and urinary retention. - IV fluids as above, discontinued today in favor of oral fluids given good oral intake. - Daily BMP; Creatinine 1.57 -> 1.62 so far this admission with baseline ~1.0. - Ames for now to relieve bladder. (6) BPH (benign prostatic hyperplasia): Plan: - S/p cystoscopy and TURP 03/28/2022 for BPH causing need for intermittent catheterization. Last seen 04/2022 as outpatient, has not yet had return of normal bladder activity/function. Straight cathing as needed outpatient. Consideration of CIC/sacral neuromodulation/Gemtesa in the future. Ames placed, draining light yellow urine, remove as able. UA is with 3+ leukocyte esterase, 4+ bacteria, appears infected. Maintain cath, treat UTI as otherwise. (7) Multiple fractures of ribs: Plan: - As noted above, pain control. (8) GERD (gastroesophageal reflux disease): Plan: - PPI daily. - Continue H2 qHS. (9) Hyponatremia: Plan: Na 134 on admission, down to 129 today. With intermittent confusion today, also convoluted by pain, bacteremia as other possible causes of intermittent confusion. Urine and Serum Osms pending, initially low Na suspected to be due to sepsis and dehydration, but will evaluate and give fluids/restrict based on follow up labs. 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 Up in chair and complaining of pain while in chair, but does continue to have right chest wall pain with movement. No reports of trouble breathing and is saturating at 91% on 2L of nasal cannula. Review of Systems Review of Systems: All systems reviewed & are unremarkable except as noted in Subjective Physical Exam Constitutional: WD/WN, vitals as above Respiratory: shallow breathing but able to take deep breath (with pain) with prompting, lungs CTA Cardiovascular: RRR, no murmur, no edema Gastrointestinal (Abdomen): normal bowel sounds, soft, nontender, no hepat osplenomegaly Musculoskeletal: pain to palpation over right chest wall and right back Skin: no rashes, warm and dry Psychiatric: A+Ox3, euthymic affect (redirectable, at times forgets he is at hospital thinks he is in classroom) Results & Data Results & Data ([facility]) Vital Signs (Past 12 Hours) Vital Signs Temp Pulse Pulse Resp BP Pulse Ox O2 Del Method 05/08/22 07:50 36.4 C L 62 18 112/63 92 Nasal Cannula 05/07/22 22:00 67 05/08/22 03:07 36.8 C 60 15 93/64 L 98 Nasal Cannula 05/07/22 21:30 Nasal Cannula 05/07/22 23:14 37.5 C 62 14 96/52 L 93 Nasal Cannula O2 Flow Rate 05/08/22 07:50 2 05/07/22 22:00 05/08/22 03:07 2 05/07/22 21:30 2 05/07/22 23:14 2 PG Care Time/CCT Total # of Minutes Spent Total Time Spent with Patient: Total time spent is greater than 50% in coordination of care (as documented) at patient's floor/unit and/or counseling patient: Coding Level of Care Code 40952 SUB INP/OBS CARE 3/50MIN Diagnoses Sepsis due to gram-negative UTI A41.50; N39.0 Gram-negative bacteremia R78.81 Pneumothorax S27.0XXA Encounter type: initial encounter Pneumothorax type: traumatic Syncope R55 Syncope type: unspecified DEMETRIUS (acute kidney injury) N17.9 BPH (benign prostatic hyperplasia) N40.0 Multiple fractures of ribs S22.41XA Encounter type: initial encounter Fracture type: closed Laterality: right GERD (gastroesophageal reflux disease) K21.9 Hyponatremia E87.1 (3) Pneumothorax Encounter type: initial encounter Pneumothorax type: traumatic Qualified Code(s): S27.0XXA - Traumatic pneumothorax, initial encounter (4) Syncope Syncope type: unspecified Qualified Code(s): R55 - Syncope and collapse (7) Multiple fractures of ribs Encounter type: initial encounter Fracture type: closed Laterality: right Qualified Code(s): S22.41XA - Multiple fractures of ribs, right side, initial encounter for closed fracture
--- NOTE | 2022-05-08 09:19 | Procedure Note ---
Procedure Note Date of Service May 08, 2022 Note The dressing of the right apical pigtail catheter was taken down. No significant bleeding or irritation was noted. The tape was removed. The locking mechanism of the pigtail catheter was undone. The catheter was removed upon the patient exhaling. Patient tolerated removal of the catheter without issue. An occlusive 4 x 4 dressing was placed over the incision site. This should remain dry for the next 24 hours and can likely be removed tomorrow. Coding CPT Codes Pulmonary/Thoracic - Pulmonary and Thoracic: 78976 Remove lung catheter ([id number]) [place] Procedure Codes ([place]) Pulmonary/Thoracic Procedure 1: Pulmonary and Thoracic: 98470 Remove lung catheter
--- NOTE | 2022-05-08 09:21 | Pulmonology Progress Note ---
Date of Service May 08, 2022 Assessment & Plan (1) Traumatic pneumothorax: Plan: Pneumothorax resolved. Chest tube removed. (2) Subcutaneous emphysema: Plan: Will reabsorb over time. No interventions required at this time. (3) Hypoxia: Plan: Continue to wean oxygen to maintain saturations above 92%. (4) Multiple fractures of ribs: Plan: Pain control per primary team. Should he have evidence of decompensation including hemothorax or worsening hypoxemia, please transfer the patient to tertiary center for trauma evaluation. Encounter type: initial encounter Fracture type: closed Laterality: right Qualified Code(s): S22.41XA - Multiple fractures of ribs, right side, initial encounter for closed fracture Plan Pulmonary to sign off at this time. Please call with questions. Thank you for allowing us to participate in the care of this patient. Admission and Anticipated Discharge Date Admission Date: May 06, 2022 Subjective Patient tolerated clamping of the chest to overnight. Chest tube was removed this morning. He does continue to endorse significant pain around the rib fracture sites. He is currently on low-flow oxygen and saturating in the low 90s. Review of Systems Review of Systems: All systems reviewed & are unremarkable except as noted in HPI & below Physical Exam Physical Exam: Constitutional: Patient appears to be of their stated age. Patient is in no apparent distress. Patient is well-developed. Eyes: Pupils are equal round and reactive to light. Conjunctivae are normal. Anicteric sclera. Ears nose, mouth and throat: Deferred Neck: Trachea is midline. Visual inspection is normal. Respiratory: Diminished bibasilar. Right apical pigtail catheter in place with dressing. Cardiovascular: Regular rate and rhythm. No murmurs. No edema. Gastrointestinal: Normal bowel sounds, soft, nontender and nondistended. No hepatosplenomegaly noted. Musculoskeletal: No cyanosis. Patient is able to move all extremities. Strength is 5 out of 5 in the upper and lower extremities. Skin: No rashes, warm dry and intact. Neurologic: No obvious focal neurological deficits seen. Psychiatric: Alert and oriented x3 with a euthymic affect. Results & Data Results & Data ([facility]) Vital Signs (Past 12 Hours) Vital Signs Temp Pulse Pulse Resp BP Pulse Ox O2 Del Method 05/08/22 07:50 36.4 C L 62 18 112/63 92 Nasal Cannula 05/07/22 22:00 67 05/08/22 03:07 36.8 C 60 15 93/64 L 98 Nasal Cannula 05/07/22 21:30 Nasal Cannula 05/07/22 23:14 37.5 C 62 14 96/52 L 93 Nasal Cannula O2 Flow Rate 05/08/22 07:50 2 05/07/22 22:00 05/08/22 03:07 2 05/07/22 21:30 2 05/07/22 23:14 2 PG Care Time/CCT Total # of Minutes Spent Total Time Spent with Patient: Total time spent is greater than 50% in coordination of care (as documented) at patient's floor/unit and/or counseling patient: Coding Level of Care Code 31698 SUB INP/OBS CARE 235MIN Diagnoses Traumatic pneumothorax S27.0XXA Subcutaneous emphysema T79.7XXA Hypoxia R09.02 Multiple fractures of ribs S22.41XA Encounter type: initial encounter Fracture type: closed Laterality: right
[2022-05-08] MEDS: PANTOprazole 40 MG in SYRINGE 0 ML IV SCH (11:33)
--- NOTE | 2022-05-08 12:07 | XCELERA ---
[id number]
[2022-05-08] MEDS ORDERED: POTASSIUM CHLORIDE CRTAB 20 MEQ TABCR PO STA (15:46)
[2022-05-08] MEDS: POLYETHYLENE (MIRALAX) 17 GM PACK PO PRN (16:21)
[2022-05-08 17:17] LABS: BUN Creatinine Ratio 17.5 (10-20); Creatinine Clr Calc Pharmacy 44.8 ml/min; Est GFR (African American) 50.1 ml/min; Est GFR (Non-African American) 43.2 ml/min
[2022-05-08] MEDS: cefTRIAXone SODIUM 2,000 MG in DEXTROSE 5% 50 ML IV SCH (17:22)
[2022-05-08] MEDS ORDERED: SODIUM CHLORIDE 0.9% 1000ML 1,000 ML IV ONE (20:30)
[2022-05-08] MEDS: FAMOTIDINE 20 MG TAB PO SCH (20:33)
[2022-05-08] MEDS: TAMSULOSIN HCL 0.4 MG CAP PO SCH (20:33)
[2022-05-08] MEDS: POTASSIUM CHLORIDE CRTAB 20 MEQ TABCR PO SCH (22:05)
[2022-05-09] MEDS: ACETAMINOPHEN 500 MG TAB PO SCH ×3 (02:15→18:02)
[2022-05-09] MEDS: oxyCODONE HCL IR 5 MG TAB (IMMEDIATE RELEASE) PO PRN ×4 (02:15→23:54)
[2022-05-09] MEDS: DICLOFENAC SOD 1% GEL 100 GM TUBE EXT SCH ×4 (05:14→21:55)
[2022-05-09 06:31] LABS: Basophils # (auto) 0.02 K/uL (0-0.2); Basophils % (auto) 0.2 %; Eosinophils # (auto) 0.03 K/uL (0-0.50); Eosinophils % (auto) 0.3 %; Hematocrit (blood only) 29.4 % (42.0-52.0); Hemoglobin 10.8 g/dl (14.0-18.0); Immature Granulocytes # (auto) 0.04 K/uL (0.01-0.20); Immature Granulocytes % (auto) 0.4 %; Lymphocytes # (auto) 1.06 K/uL (1.2-3.4); Lymphocytes % (auto) 11.1 %; Mean Corpuscular Hemoglobin 33.2 pg (25.0-34.0); Mean Corpuscular Hgb Conc 36.7 g/dL (32.0-36.0); Mean Corpuscular Volume 90.5 fL (80.0-100.0); Mean Platelet Volume 11.4 fL (9.4-12.4); Monocytes # (auto) 1.03 K/uL (0.11-0.59); Monocytes % (auto) 10.8 %; Neutrophils # (auto) 7.37 K/uL (1.40-6.50); Neutrophils % (auto) 77.2 %; Platelet Count 142 K/uL (130-400); RDW Coefficient of Variation 11.9 % (11.5-14.5); RDW Standard Deviation 39.3 fL (36.4-46.3); Red Blood Count 3.25 M/uL (4.70-6.10); White Blood Count 9.55 K/ul (4.8-10.8)
[2022-05-09 07:10] LABS: BUN Creatinine Ratio 16.8 (10-20); Calcium 7.7 mg/dl (8.5-10.1); Creatinine Clr Calc Pharmacy 52.7 ml/min; Est GFR (African American) 60.9 ml/min; Est GFR (Non-African American) 52.5 ml/min; Potassium 3.6 mmol/L (3.5-5.1)
--- NOTE | 2022-05-09 08:24 | Hospitalist Progress Note ---
Date of Service May 09, 2022 Assessment & Plan (1) Sepsis due to gram-negative UTI: Plan: - On admission with fevers, intermittent tachycardia, UA appearing grossly infected. - History of urinary retention (s/p TURP 03/28/2022), unfortunately with continued urinary retention issues requiring 4 times daily self-catheterization. - Complicated catheter-associated and urinary retention-associated UTI. - Lactate normal. - UCx with E. coli sensitive to ceftriaxone. - Received bolus and maintenance fluids on admission. - Was on Zosyn starting 05/06 -> deescalated 05/07 to ceftriaxone after BCx/UCx showing E. coli. - Patient unable to receive fluoroquinolones due to increased Hx of multiple tendon rupture per Orthopedics. - Tylenol/ice as needed for fevers; defer NSAIDs given recent DEMETRIUS. (2) Gram-negative bacteremia: Plan: - BCx 05/06/22 showing E. coli sensitive to ceftriaxone. - Ceftriaxone as described above (Abx started 05/06), will need total of ~2 weeks of antibiotic therapy, but can be deescalated to oral abx for discharge. (3) Pneumothorax: Plan: - R Rib fractures, <4 contiguous. Ground level fall. - CThead: No acute findings. - CXR: Small right apical pneumothorax with 1.2 cm pleural separation, moderate subcu emphysema. - CT-C/A/P: 1. The posterior right ninth and 10th ribs are fractured in at least two places which includes displaced fractures. Acute nondisplaced fracture of the medial right 11th rib. 2. Small right-sided pneumothorax with subcutaneous and deep tissue emphysema of the right chest wall extending into the right flank and neck. 3. No acute post-traumatic intra-abdominal or intrapelvic abnormality. - CT-C spine: 1. No acute fracture or subluxation of the cervical spine identified. 2. Trace right apical pneumothorax with moderate subcutaneous emphysema of the imaged right upper chest and right neck. - Pulm consulted and appreciate recommendations: s/p chest tube 05/06 with improvement in dyspnea and pneumo on imaging, chest tube removed 05/08. - If worsening in clinical status or worsening Hgb, consider transfer to tertiary facility with trauma surgery. - Pain control with scheduled Tylenol and Voltaren/lidocaine, with oxycodone as needed for moderate pain and Dilaudid as needed for severe/breakthrough pain. A bit less pain today with breathing, hopefully can begin to wean off of IV pain medication. - Incentive spirometer encouraged. - PT and OT ordered for continued dispo planning. - Repeat CXR tomorrow. (4) Syncope: Plan: Patient with lightheadedness/dizziness which worsened over 1 day, was ambulating to the bathroom when he passed out and fell hitting the radiator striking his right side. Suspect orthostatic in the setting of sepsis and bacteremia. Following fluids and antibiotics patient is normotensive. Has right lower rib and chest wall pain. Echo ordered 05/07 with LVEF 65-70%, no regional wall motion abnormalities, moderate pulmonary HTN. EKG normal sinus rhythm, QTc 420, no ST segment changes or inversions. (5) DEMETRIUS (acute kidney injury): Plan: - Resolving, creatinine 1.31 today. - 2/2 sepsis and UTI, suspected to be prerenal in the setting of urosepsis, but perhaps also post-obstructive from BPH and urinary retention. - s/p IV fluids and Ames for urinary retention. (6) BPH (benign prostatic hyperplasia): Plan: - S/p cystoscopy and TURP 03/28/2022 for BPH causing need for intermittent catheterization. Last seen 04/2022 as outpatient, has not yet had return of normal bladder activity/function. Straight cathing as needed outpatient. Consideration of CIC/sacral neuromodulation/Gemtesa in the future. Ames placed, draining light yellow urine, remove as able; can consider leaving Ames in through discharge with Urology follow up. Treatment of UTI as described above. (7) Multiple fractures of ribs: Plan: - As noted above, pain control. (8) GERD (gastroesophageal reflux disease): Plan: - PPI daily. - Continue H2 qHS. (9) Hyponatremia: Plan: Resolving, 134 today. With intermittent confusion / which has resolved, also convoluted by pain, bacteremia as other possible causes of intermittent confusion. Urine and Serum Osms suggest dehydration as cause of hyponatremia. Plan Code Status: Full code Diet: Regular easy to chew diet SCDs for DVT ppx, no chemoppx due to traumatic injury Telemetry status for now Admission and Anticipated Discharge Date Admission Date: May 06, 2022 Subjective I was told by nursing that overnight patient had a brief period of oxygen saturation of 60%, oxygen was turned up patient has since been de-escalated this morning to room air. No other overnight events. Patient reports he slept fairly well, though did have some weird dreams. He is more alert and less confused today, still with pain but able to take deep breaths with less pain now. Still nervous about getting up to chair and working with physical therapy. Worried about urinary retention when the Ames comes out. Review of Systems Review of Systems: All systems reviewed & are unremarkable except as noted in Subjective Physical Exam Constitutional: WD/WN, vitals as above Respiratory: lungs CTA Cardiovascular: RRR, no murmur, no edema Gastrointestinal (Abdomen): normal bowel sounds, soft, nontender, no hepatosplenomegaly Musculoskeletal: pain to palpation over right chest wall and right back Skin: no rashes, warm and dry Psychiatric: A+Ox3, euthymic affect Results & Data Results & Data ([facility]) Vital Signs (Past 12 Hours) Vital Signs Temp Pulse Pulse Pulse Resp BP Pulse Ox 05/09/22 07:46 36.7 C 63 22 101/62 97 05/09/22 05:51 36.8 C 78 19 110/60 90 05/09/22 01:33 69 05/08/22 22:12 36.7 C 82 18 122/65 90 O2 Del Method O2 Flow Rate 05/09/22 07:46 Nasal Cannula 2 05/09/22 05:51 Nasal Cannula 05/09/22 01:33 05/08/22 22:12 Nasal Cannula 4 PG Care Time/CCT Total # of Minutes Spent Total Time Spent with Patient: Total time spent is greater than 50% in coordination of care (as documented) at patient's floor/unit and/or counseling patient: Coding Level of Care Code 06822 SUB INP/OBS CARE 3/50MIN Diagnoses Sepsis due to gram-negative UTI A41.50; N39.0 Gram-negative bacteremia R78.81 Pneumothorax S27.0XXA Encounter type: initial encounter Pneumothorax type: traumatic Syncope R55 Syncope type: unspecified DEMETRIUS (acute kidney injury) N17.9 BPH (benign prostatic hyperplasia) N40.0 Multiple fractures of ribs S22.41XA Encounter type: initial encounter Fracture type: closed Laterality: right GERD (gastroesophageal reflux disease) K21.9 Hyponatremia E87.1 (3) Pneumothorax Encounter type: initial encounter Pneumothorax type: traumatic Qualified Code(s): S27.0XXA - Traumatic pneumothorax, initial encounter (4) Syncope Syncope type: unspecified Qualified Code(s): R55 - Syncope and collapse (7) Multiple fractures of ribs Encounter type: initial encounter Fracture type: closed Laterality: right Qualified Code(s): S22.41XA - Multiple fractures of ribs, right side, initial encounter for closed fracture
[2022-05-09] MEDS: LIDOCAINE 5% 1 PATCH TD SCH (08:41)
[2022-05-09] MEDS: OXYBUTYNIN CHLORIDE XL 5 MG TABCR PO SCH (08:42)
[2022-05-09] MEDS: POTASSIUM CHLORIDE CRTAB 20 MEQ TABCR PO SCH ×2 (08:44→21:55)
[2022-05-09] MEDS: CYCLOBENZAPRINE HCL 5 MG TAB PO PRN (08:46)
[2022-05-09] MEDS: PANTOprazole 40 MG in SYRINGE 0 ML IV SCH (10:16)
[2022-05-09] MEDS: HYDROmorphone INJ 0.5 MG/0.5 ML SYR IV PRN ×3 (13:14→22:11)
[2022-05-09] MEDS: cefTRIAXone SODIUM 2,000 MG in DEXTROSE 5% 50 ML IV SCH (16:37)
[2022-05-09] MEDS: FAMOTIDINE 20 MG TAB PO SCH (21:55)
[2022-05-09] MEDS: TAMSULOSIN HCL 0.4 MG CAP PO SCH (21:55)
[2022-05-09] MEDS: POLYETHYLENE (MIRALAX) 17 GM PACK PO PRN (23:55)
[2022-05-10] MEDS: ACETAMINOPHEN 500 MG TAB PO SCH ×3 (02:30→17:34)
[2022-05-10] MEDS: HYDROmorphone INJ 0.5 MG/0.5 ML SYR IV PRN ×2 (03:28→06:04)
[2022-05-10] MEDS: DICLOFENAC SOD 1% GEL 100 GM TUBE EXT SCH (06:03)
[2022-05-10 06:30] LABS: Hemoglobin 11.9 g/dl (14.0-18.0); Mean Corpuscular Hemoglobin 32.2 pg (25.0-34.0); Mean Corpuscular Hgb Conc 36.1 g/dL (32.0-36.0); Mean Corpuscular Volume 89.4 fL (80.0-100.0); Mean Platelet Volume 11.1 fL (9.4-12.4); Platelet Count 175 K/uL (130-400); RDW Coefficient of Variation 11.9 % (11.5-14.5); RDW Standard Deviation 38.3 fL (36.4-46.3); Red Blood Count 3.69 M/uL (4.70-6.10)
[2022-05-10 06:51] LABS: BUN Creatinine Ratio 17.8 (10-20); Calcium 7.9 mg/dl (8.5-10.1); Creatinine Clr Calc Pharmacy 64.5 ml/min; Est GFR (African American) 77.7 ml/min; Est GFR (Non-African American) 67.1 ml/min; Potassium 3.7 mmol/L (3.5-5.1)
--- NOTE | 2022-05-10 08:06 | XRay Report ---
XR chest 1V portable HISTORY: 76 years-old Male recent pneumo s/p chest tube removal follow-up study in a patient with ri ght-sided pneumothorax COMPARISON: 05/08/2022 TECHNIQUE: AP view of the chest FINDINGS: Status post removal of the right-sided chest tube. Mild subcutaneous emphysema of the right chest wal l and supraclavicular tissues. No definite pneumothorax. Small pleural effusions with mild bibasilar consolidation. Pulmonary vascular congestion. Bones appear grossly intact. IMPRESSION: Status post removal of the right-sided chest tube. No pneumothorax identified. ACT 112: Negative or not required by law. The above report was generated using voice recognition software. It may contain grammatical, syntax o r spelling errors. Electronically signed by: Bean Daniels M.D. 05/10/2022 8:05 AM
[2022-05-10] MEDS: LIDOCAINE 5% 1 PATCH TD SCH (08:20)
[2022-05-10] MEDS: oxyCODONE HCL IR 5 MG TAB (IMMEDIATE RELEASE) PO PRN ×2 (08:21→16:53)
[2022-05-10] MEDS: CYCLOBENZAPRINE HCL 5 MG TAB PO PRN ×3 (08:22→21:08)
[2022-05-10] MEDS: OXYBUTYNIN CHLORIDE XL 5 MG TABCR PO SCH (08:22)
[2022-05-10] MEDS: POTASSIUM CHLORIDE CRTAB 20 MEQ TABCR PO SCH ×2 (08:24→21:07)
[2022-05-10] MEDS ORDERED: HYDROmorphone INJ 0.5 MG/0.5 ML SYR IV PRN (08:24)
--- NOTE | 2022-05-10 08:28 | Hospitalist Progress Note ---
Date of Service May 10, 2022 Assessment & Plan (1) Sepsis due to gram-negative UTI: Plan: - On admission with fevers, intermittent tachycardia, UA appearing grossly infected. - History of urinary retention (s/p TURP 03/28/2022), unfortunately with continued urinary retention issues requiring 4 times daily self-catheterization. - Complicated catheter-associated and urinary retention-associated UTI. - Lactate normal. - UCx with E. coli sensitive to ceftriaxone. - Received bolus and maintenance fluids on admission. - Was on Zosyn starting 05/06 -> deescalated 05/07 to ceftriaxone after BCx/UCx showing E. coli. - Patient unable to receive fluoroquinolones due to increased Hx of multiple tendon rupture per Orthopedics. - Tylenol/ice as needed for fevers, but fevers have resolved for the last several day. (2) Gram-negative bacteremia: Plan: - BCx 05/06/22 showing E. coli sensitive to ceftriaxone. - Ceftriaxone as described above (Abx started 05/06), to complete antibiotics on 05/20. Transition to p.o. on discharge. (3) Pneumothorax: Plan: - R Rib fractures, <4 contiguous. Ground level fall. - CThead: No acute findings. - CXR: Small right apical pneumothorax with 1.2 cm pleural separation, moderate subcu emphysema. - CT-C/A/P: 1. The posterior right ninth and 10th ribs are fractured in at least two places which includes displaced fractures. Acute nondisplaced fracture of the medial right 11th rib. 2. Small right-sided pneumothorax with subcutaneous and deep tissue emphysema of the right chest wall extending into the right flank and neck. - Pulm consulted and appreciate recommendations: s/p chest tube 05/06 with improvement in dyspnea and pneumo on imaging, chest tube removed 05/08. -Repeat CXR 05/10 with resolution of pneumothorax. - Pain control with scheduled Tylenol and Voltaren/lidocaine, Toradol, and oxycodone as needed for moderate pain. Dilaudid still ordered as needed for breakthrough pain, however time interval between doses was increased today in an effort to move towards cessation of this medication. - Incentive spirometer encouraged. (4) Syncope: Plan: Patient with lightheadedness/dizziness which worsened over 1 day, was ambulating to the bathroom when he passed out and fell hitting the radiator striking his right side. Suspect orthostatic in the setting of sepsis and bacteremia. Following fluids and antibiotics patient is normotensive. Has right lower rib and chest wall pain. Echo ordered 05/07 with LVEF 65-70%, no regional wall motion abnormalities, moderate pulmonary HTN (in the setting of acute pneumothorax). EKG normal sinus rhythm, QTc 420, no ST segment changes or inversions. (5) DEMETRIUS (acute kidney injury): Plan: - Resolved, creatinine of 1.07 today. - 2/2 sepsis and UTI, suspected to be prerenal in the setting of urosepsis, but perhaps also post-obstructive from BPH and urinary retention. - s/p IV fluids and Ames for urinary retention. (6) BPH (benign prostatic hyperplasia): Plan: - S/p cystoscopy and TURP 03/28/2022 for BPH causing need for intermittent catheterization. Last seen 04/2022 as outpatient, has not yet had return of normal bladder activity/function. Straight cathing as needed outpatient. Consideration of CIC/sacral neuromodulation/Gemtesa in the future. Ames placed, draining light yellow urine; in shared decision making with patient, may keep Ames in on discharge with urology follow-up within 1 week. Treatment of UTI as described above. (7) Multiple fractures of ribs: Plan: - As noted above, pain control. (8) GERD (gastroesophageal reflux disease): Plan: - PPI daily. - Continue H2 qHS. (9) Hyponatremia: Plan: Resolved, sodium 137 today. With intermittent confusion / which has resolved, also convoluted by pain, bacteremia as other possible causes of intermittent confusion. Urine and Serum Osms suggested dehydration as cause of hyponatremia. Plan Code Status: Full code Diet: Regular easy to chew diet SCDs for DVT ppx, no chemoppx due to traumatic injury, ambulate on demand Telemetry status for now Admission and Anticipated Discharge Date Admission Date: May 06, 2022 Subjective Patient without any acute events overnight. Feels that his pain is somewhat better today, though he is overall nervous about his ability to perform his ADLs given the amount of pain that he has. No complaints of shortness of breath, no abdominal pain. Review of Systems Review of Systems: All systems reviewed & are unremarkable except as noted in Subjective Physical Exam Constitutional: WD/WN, vitals as above Respiratory: lungs CTA Cardiovascular: RRR, no murmur, no edema Gastrointestinal (Abdomen): normal bowel sounds, soft, nontender, no hepatosplenomegaly Musculoskeletal: pain to palpation over right chest wall and right back Skin: no rashes, warm and dry Psychiatric: A+Ox3, euthymic affect Results & Data Results & Data ([facility]) Vital Signs (Past 12 Hours) Vital Signs Temp Pulse Resp BP Pulse Ox O2 Del Method 05/10/22 07:22 37.4 C 64 18 113/65 92 Room Air 05/10/22 04:56 37.1 C 85 18 146/72 H 91 Room Air 05/09/22 23:50 36.5 C 77 18 126/75 98 Room Air PG Care Time/CCT Total # of Minutes Spent Total Time Spent with Patient: Total time spent is greater than 50% in coordination of care (as documented) at patient's floor/unit and/or counseling patient: Coding Level of Care Code 58840 SUB INP/OBS CARE 3/50MIN Diagnoses Sepsis due to gram-negative UTI A41.50; N39.0 Gram-negative bacteremia R78.81 Pneumothorax S27.0XXA Encounter type: initial encounter Pneumothorax type: traumatic Syncope R55 Syncope type: unspecified DEMETRIUS (acute kidney injury) N17.9 BPH (benign prostatic hyperplasia) N40.0 Multiple fractures of ribs S22.41XA Encounter type: initial encounter Fracture type: closed Laterality: right GERD (gastroesophageal reflux disease) K21.9 Hyponatremia E87.1 (3) Pneumothorax Encounter type: initial encounter Pneumothorax type: traumatic Qualified Code(s): S27.0XXA - Traumatic pneumothorax, initial encounter (4) Syncope Syncope type: unspecified Qualified Code(s): R55 - Syncope and collapse (7) Multiple fractures of ribs Encounter type: initial encounter Fracture type: closed Laterality: right Qualified Code(s): S22.41XA - Multiple fractures of ribs, right side, initial encounter for closed fracture
[2022-05-10] MEDS: KETOROLAC TROMETHAMINE 10 MG TABLET PO SCH ×5 (08:57→23:46)
[2022-05-10] MEDS: PANTOprazole 40 MG in SYRINGE 0 ML IV SCH (10:30)
[2022-05-10] MEDS: cefTRIAXone SODIUM 2,000 MG in DEXTROSE 5% 50 ML IV SCH (15:03)
[2022-05-10] MEDS: DOCUSATE SODIUM 100 MG CAP PO PRN (15:03)
[2022-05-10] MEDS: POLYETHYLENE (MIRALAX) 17 GM PACK PO PRN (21:06)
[2022-05-10] MEDS: FAMOTIDINE 20 MG TAB PO SCH (21:06)
[2022-05-10] MEDS: TAMSULOSIN HCL 0.4 MG CAP PO SCH (21:08)
[2022-05-11] MEDS: MELATONIN 3 MG TAB PO PRN ×2 (00:30→21:35)
[2022-05-11] MEDS: oxyCODONE HCL IR 5 MG TAB (IMMEDIATE RELEASE) PO PRN ×4 (00:59→21:35)
[2022-05-11] MEDS: ACETAMINOPHEN 500 MG TAB PO SCH ×3 (01:40→17:16)
[2022-05-11] MEDS: ALPRAZolam 0.5 MG TABLET PO PRN ×2 (05:52→20:08)
[2022-05-11] MEDS: KETOROLAC TROMETHAMINE 10 MG TABLET PO SCH (05:52)
[2022-05-11 06:43] LABS: Hematocrit (blood only) 34.2 % (42.0-52.0); Hemoglobin 11.9 g/dl (14.0-18.0); Mean Corpuscular Hemoglobin 32.4 pg (25.0-34.0); Mean Corpuscular Hgb Conc 34.8 g/dL (32.0-36.0); Mean Corpuscular Volume 93.2 fL (80.0-100.0); Mean Platelet Volume 10.9 fL (9.4-12.4); Platelet Count 210 K/uL (130-400); RDW Coefficient of Variation 11.8 % (11.5-14.5); RDW Standard Deviation 40.1 fL (36.4-46.3); Red Blood Count 3.67 M/uL (4.70-6.10); White Blood Count 7.86 K/ul (4.8-10.8)
[2022-05-11 07:00] LABS: BUN Creatinine Ratio 19.8 (10-20); Creatinine Clr Calc Pharmacy 52.7 ml/min; Est GFR (African American) 60.9 ml/min; Est GFR (Non-African American) 52.5 ml/min; Potassium 4.1 mmol/L (3.5-5.1)
[2022-05-11] MEDS: OXYBUTYNIN CHLORIDE XL 5 MG TABCR PO SCH (08:52)
[2022-05-11] MEDS: LIDOCAINE 5% 1 PATCH TD SCH (08:52)
[2022-05-11] MEDS ORDERED: POTASSIUM CHLORIDE CRTAB 20 MEQ TABCR PO SCH (09:00)
[2022-05-11] MEDS ORDERED: HYDROmorphone INJ 0.5 MG/0.5 ML SYR IV PRN (11:01)
--- NOTE | 2022-05-11 11:01 | Hospitalist Progress Note ---
Date of Service May 11, 2022 Assessment & Plan (1) Sepsis due to gram-negative UTI: Plan: - On admission with fevers, intermittent tachycardia, UA appearing grossly infected. - History of urinary retention (s/p TURP 03/28/2022), unfortunately with continued urinary retention issues requiring 4 times daily self-catheterization. - Complicated catheter-associated and urinary retention-associated UTI. - Lactate normal. - UCx with E. coli sensitive to ceftriaxone. - Received bolus and maintenance fluids on admission. - Was on Zosyn starting 05/06 -> deescalated 05/07 to ceftriaxone after BCx/UCx showing E. coli. - Patient unable to receive fluoroquinolones due to increased Hx of multiple tendon rupture per Orthopedics. - Tylenol/ice as needed for fevers, but fevers have resolved for the last several day. (2) Gram-negative bacteremia: Plan: - BCx 05/06/22 showing E. coli sensitive to ceftriaxone. - Ceftriaxone as described above (Abx started 05/06), to complete antibiotics on 05/20. Transition to p.o. on discharge. (3) Pneumothorax: Plan: - R Rib fractures, <4 contiguous. Ground level fall. - CThead: No acute findings. - CXR: Small right apical pneumothorax with 1.2 cm pleural separation, moderate subcu emphysema. - CT-C/A/P: 1. The posterior right ninth and 10th ribs are fractured in at least two places which includes displaced fractures. Acute nondisplaced fracture of the medial right 11th rib. 2. Small right-sided pneumothorax with subcutaneous and deep tissue emphysema of the right chest wall extending into the right flank and neck. - Pulm consulted and appreciate recommendations: s/p chest tube 05/06 with improvement in dyspnea and pneumo on imaging, chest tube removed 05/08. -Repeat CXR 05/10 with resolution of pneumothorax. - Pain control with scheduled Tylenol and Voltaren/lidocaine, and oxycodone as needed for moderate pain. Dilaudid adjusted to q12h as needed for severe/breakthrough pain as we continue to approach discharge. - Incentive spirometer encouraged. -PT recommending acute rehab brief stay for strengthening, referral placed, CM following. (4) Syncope: Plan: Patient with lightheadedness/dizziness which worsened over 1 day, was ambulating to the bathroom when he passed out and fell hitting the radiator striking his right side. Suspect orthostatic in the setting of sepsis and bacteremia. Following fluids and antibiotics patient is normotensive. Has right lower rib and chest wall pain. Echo ordered 05/07 with LVEF 65-70%, no regional wall motion abnormalities, moderate pulmonary HTN (in the setting of acute pneumothorax). EKG normal sinus rhythm, QTc 420, no ST segment changes or inversions. (5) DEMETRIUS (acute kidney injury): Plan: - Resolved, creatinine of 1.31 (baseline 0.9-1.1). - 2/2 sepsis and UTI, suspected to be prerenal in the setting of urosepsis, but perhaps also post-obstructive from BPH and urinary retention. - s/p IV fluids and Ames for urinary retention. (6) BPH (benign prostatic hyperplasia): Plan: - S/p cystoscopy and TURP 03/28/2022 for BPH causing need for intermittent catheterization. Last seen 04/2022 as outpatient, has not yet had return of normal bladder activity/function. Straight cathing as needed outpatient. Consideration of CIC/sacral neuromodulation/Gemtesa in the future. Ames placed, draining light yellow urine; in shared decision making with patient, may keep Ames in on discharge with urology follow-up within 1 week. Treatment of UTI as described above. (7) Multiple fractures of ribs: Plan: - As noted above, pain control. (8) GERD (gastroesophageal reflux disease): Plan: - PPI daily. - Continue H2 qHS. (9) Hyponatremia: Plan: -Resolved, sodium 137 today. -With intermittent confusion / which has resolved, also convoluted by pain, bacteremia as other possible causes of intermittent confusion. -Urine and Serum Osms suggested dehydration as cause of hyponatremia. (10) Constipation: Plan: -Likely due to opiate therapy, less mobility than usual. -Bowel regimen ordered. Plan Code Status: Full code Diet: Regular easy to chew diet SCDs for DVT ppx, no chemoppx due to traumatic injury, ambulate on demand Telemetry status for now Admission and Anticipated Discharge Date Admission Date: May 06, 2022 Subjective Patient without any acute events overnight. Received one dose IV pain medication overnight. Patient reports pain with movement, but no further shortness of breath. Reports he has not had a BM in a few days while on opiates. Review of Systems Review of Systems: All systems reviewed & are unremarkable except as noted in Subjective Physical Exam Constitutional: WD/WN, vitals as above Respiratory: lungs CTA Cardiovascular: RRR, no murmur, no edema Gastrointestinal (Abdomen): normal bowel sounds, soft, nontender, no hepatosplenomegaly Musculoskeletal: pain to palpation over right chest wall and right back Skin: no rashes, warm and dry Psychiatric: A+Ox3, euthymic affect Results & Data Results & Data ([facility]) Vital Signs (Past 12 Hours) Vital Signs Temp Pulse Pulse Pulse Pulse Pulse Resp 05/11/22 07:00 57 L 05/11/22 07:00 72 65 57 L 05/11/22 07:33 36.3 C L 55 L 18 05/11/22 04:00 36.6 C 67 20 Resp Resp Resp BP BP Pulse Ox Pulse Ox 05/11/22 07:00 05/11/22 07:00 20 18 17 97 05/11/22 07:33 121/74 94 05/11/22 04:00 130/71 92 Pulse Ox Pulse Ox O2 Del Method 05/11/22 07:00 05/11/22 07:00 95 96 05/11/22 07:33 Room Air 05/11/22 04:00 Room Air PG Care Time/CCT Total # of Minutes Spent Total Time Spent with Patient: Total time spent is greater than 50% in coordination of care (as documented) at patient's floor/unit and/or counseling patient: Coding Level of Care Code 02448 SUB INP/OBS CARE 3/50MIN Diagnoses Sepsis due to gram-negative UTI A41.50; N39.0 Gram-negative bacteremia R78.81 Pneumothorax S27.0XXA Encounter type: initial encounter Pneumothorax type: traumatic Syncope R55 Syncope type: unspecified DEMETRIUS (acute kidney injury) N17.9 BPH (benign prostatic hyperplasia) N40.0 Multiple fractures of ribs S22.41XA Encounter type: initial encounter Fracture type: closed Laterality: right GERD (gastroesophageal reflux disease) K21.9 Hyponatremia E87.1 Constipation K59.00 (3) Pneumothorax Encounter type: initial encounter Pneumothorax type: traumatic Qualified Code(s): S27.0XXA - Traumatic pneumothorax, initial encounter (4) Syncope Syncope type: unspecified Qualified Code(s): R55 - Syncope and collapse (7) Multiple fractures of ribs Encounter type: initial encounter Fracture type: closed Laterality: right Qualified Code(s): S22.41XA - Multiple fractures of ribs, right side, initial encounter for closed fracture
[2022-05-11] MEDS: DICLOFENAC SOD 1% GEL 100 GM TUBE EXT SCH ×3 (11:10→20:09)
[2022-05-11] MEDS: PANTOprazole 40 MG in SYRINGE 0 ML IV SCH (11:12)
[2022-05-11] MEDS: cefTRIAXone SODIUM 2,000 MG in DEXTROSE 5% 50 ML IV SCH (15:49)
[2022-05-11] MEDS: POLYETHYLENE (MIRALAX) 17 GM PACK PO SCH ×2 (16:00→20:15)
[2022-05-11] MEDS: TAMSULOSIN HCL 0.4 MG CAP PO SCH (20:08)
[2022-05-11] MEDS: FAMOTIDINE 20 MG TAB PO SCH (20:08)
[2022-05-12] MEDS: ACETAMINOPHEN 500 MG TAB PO SCH ×3 (02:46→18:01)
[2022-05-12] MEDS: DICLOFENAC SOD 1% GEL 100 GM TUBE EXT SCH ×4 (02:47→21:25)
[2022-05-12] MEDS: oxyCODONE HCL IR 5 MG TAB (IMMEDIATE RELEASE) PO PRN ×3 (03:54→23:19)
[2022-05-12] MEDS: LIDOCAINE 5% 1 PATCH TD SCH (08:45)
[2022-05-12] MEDS: CYCLOBENZAPRINE HCL 5 MG TAB PO PRN (08:46)
[2022-05-12] MEDS: SENNA 8.6 MG TAB PO SCH (08:54)
[2022-05-12] MEDS: POLYETHYLENE (MIRALAX) 17 GM PACK PO SCH ×2 (08:55→21:25)
--- NOTE | 2022-05-12 09:20 | Hospitalist Progress Note ---
Date of Service May 12, 2022 Assessment & Plan (1) Sepsis due to gram-negative UTI: Plan: - On admission with fevers, intermittent tachycardia, UA appearing grossly infected. - History of urinary retention (s/p TURP 03/28/2022), unfortunately with continued urinary retention issues requiring 4 times daily self-catheterization. - Complicated catheter-associated and urinary retention-associated UTI. - UCx with E. coli sensitive to ceftriaxone, continue Abx Zosyn -> ceftriaxone (Abx started 05/06) - Received bolus and maintenance fluids on admission. - Patient unable to receive fluoroquinolones due to increased Hx of multiple tendon rupture per Orthopedics. - Tylenol/ice as needed for fevers, no fevers in last few days. (2) Gram-negative bacteremia: Plan: - BCx 05/06/22 showing E. coli sensitive to ceftriaxone. - Ceftriaxone as described above (Abx started 05/06), to complete antibiotics on 05/20. Transition to p.o. Abx on discharge. (3) Pneumothorax: Plan: - R Rib fractures, <4 contiguous. Ground level fall. - CThead: No acute findings. - CXR: Small right apical pneumothorax with 1.2 cm pleural separation, moderate subcu emphysema. - CT-C/A/P: 1. The posterior right ninth and 10th ribs are fractured in at least two places which includes displaced fractures. Acute nondisplaced fracture of the medial right 11th rib. 2. Small right-sided pneumothorax with subcutaneous and deep tissue emphysema of the right chest wall extending into the right flank and neck. - Pulm consulted and appreciate recommendations this admission: s/p chest tube 05/06 with improvement in dyspnea and pneumo on imaging, chest tube removed 05/08. Pulm has since signed off. - Repeat CXR 05/10 with resolution of pneumothorax. - Pain control with scheduled Tylenol and Voltaren/lidocaine, and oxycodone as needed for moderate pain. Dilaudid discontinued as we approach discharge. - Incentive spirometer encouraged, patient with good effort during practice. -PT recommending acute rehab brief stay for strengthening on last evaluation, however with improvement in ambulation since that time. Will continue to monitor patient's progress and consider home with home PT/OT if improving enough that that option would be safe/feasible. (4) Syncope: Plan: Patient with lightheadedness/dizziness which worsened over 1 day [employer], was ambulating to the bathroom when he passed out and fell hitting the radiator striking his right side. Suspect orthostatic in the setting of sepsis and bacteremia. Following fluids and antibiotics patient is normotensive and no further lightheadedness this admission. Echo ordered 05/07 with LVEF 65-70%, no regional wall motion abnormalities, moderate pulmonary HTN (in the setting of acute pneumothorax), repeat per PCP.. EKG normal sinus rhythm, QTc 420, no ST segment changes or inversions. No concerning events on Telemetry. (5) DEMETRIUS (acute kidney injury): Plan: - Resolved, creatinine of 1.31 (baseline 0.9-1.2). - 2/2 sepsis and UTI, suspected to be prerenal in the setting of urosepsis, but perhaps also post-obstructive from BPH and urinary retention. - s/p IV fluids and Ames for urinary retention. - BMP tomorrow. (6) BPH (benign prostatic hyperplasia): Plan: - S/p cystoscopy and TURP 03/28/2022 for BPH causing need for intermittent catheterization. Last seen 04/2022 as outpatient, has not yet had return of normal bladder activity/function. Straight cathing as needed outpatient. Consideration of CIC/sacral neuromodulation/Gemtesa in the future. Ames placed, draining light yellow urine; in shared decision making with patient, will keep Ames in on discharge with urology follow-up within 1 week. Treatment of UTI as described above. - Continue tamsulosin. (7) Multiple fractures of ribs: Plan: - As noted above, pain control. (8) GERD (gastroesophageal reflux disease): Plan: - PPI daily. - Continue H2 qHS. (9) Hyponatremia: Plan: -Resolved. -With intermittent confusion 05/08 which has resolved, also convoluted by pain, bacteremia as other possible causes of intermittent confusion. -Urine and Serum Osms suggested dehydration as cause of hyponatremia. (10) Constipation: Plan: -Likely due to opiate therapy, less mobility than usual. -Bowel regimen ordered, with BM 05/12. Plan Code Status: Full code Diet: Regular diet SCDs for DVT ppx, ambulate on demand Telemetry status for now Admission and Anticipated Discharge Date Admission Date: May 06, 2022 Subjective Overnight with some anxiety specifically overnight, some health-related anxiety throughout the day as well. Is nervous about returning home, and states that his is nervous about him falling. He denies SOB, abdominal pain. Hadn't had BM by time of my interview this AM but has since today. Review of Systems Review of Systems: All systems reviewed & are unremarkable except as noted in Subjective Physical Exam Constitutional: WD/WN, vitals as above Respiratory: lungs CTA Cardiovascular: RRR, no murmur, no edema Gastrointestinal (Abdomen): normal bowel sounds, soft, nontender, no hepatosplenomegaly Skin: no rashes, warm and dry Psychiatric: A+Ox3, euthymic affect Results & Data Results & Data ([facility]) Vital Signs (Past 12 Hours) Vital Signs Temp Pulse Pulse Resp BP BP Pulse Ox 05/12/22 07:40 55 L 05/12/22 07:19 36.5 C 52 L 18 123/75 94 05/11/22 22:01 59 L 05/12/22 02:35 36.5 C 67 18 146/85 H 95 05/11/22 22:54 36.8 C 64 16 124/78 94 O2 Del Method 05/12/22 07:40 05/12/22 07:19 Room Air 05/11/22 22:01 05/12/22 02:35 Room Air 05/11/22 22:54 Room Air PG Care Time/CCT Total # of Minutes Spent Total Time Spent with Patient: Total time spent is greater than 50% in coordination of care (as documented) at patient's floor/unit and/or counseling patient: Coding Level of Care Code 17697 SUB INP/OBS CARE 2/35MIN Diagnoses Sepsis due to gram-negative UTI A41.50; N39.0 Gram-negative bacteremia R78.81 Pneumothorax S27.0XXA Encounter type: initial encounter Pneumothorax type: traumatic Syncope R55 Syncope type: unspecified DEMETRIUS (acute kidney injury) N17.9 BPH (benign prostatic hyperplasia) N40.0 Multiple fractures of ribs S22.41XA Encounter type: initial encounter Fracture type: closed Laterality: right GERD (gastroesophageal reflux disease) K21.9 Hyponatremia E87.1 Constipation K59.00 (3) Pneumothorax Encounter type: initial encounter Pneumothorax type: traumatic Qualified Code(s): S27.0XXA - Traumatic pneumothorax, initial encounter (4) Syncope Syncope type: unspecified Qualified Code(s): R55 - Syncope and collapse (7) Multiple fractures of ribs Encounter type: initial encounter Fracture type: closed Laterality: right Qualified Code(s): S22.41XA - Multiple fractures of ribs, right side, initial encounter for closed fracture
[2022-05-12] MEDS: PANTOprazole 40 MG in SYRINGE 0 ML IV SCH (10:19)
[2022-05-12] MEDS: OXYBUTYNIN CHLORIDE XL 5 MG TABCR PO SCH (10:19)
[2022-05-12] MEDS ORDERED: SOD PHOSPHATE/SOD BIPHOSPHATE ENEMA 132 ML BTL PR PRN (11:48)
[2022-05-12] MEDS ORDERED: HYDROmorphone INJ 0.5 MG/0.5 ML SYR IV PRN (11:49)
[2022-05-12] MEDS: cefTRIAXone SODIUM 2,000 MG in DEXTROSE 5% 50 ML IV SCH (16:21)
[2022-05-12] MEDS: ALPRAZolam 0.5 MG TABLET PO PRN ×2 (16:27→23:19)
[2022-05-12] MEDS: TAMSULOSIN HCL 0.4 MG CAP PO SCH (21:25)
[2022-05-12] MEDS: FAMOTIDINE 20 MG TAB PO SCH (21:25)
[2022-05-12] MEDS: MELATONIN 3 MG TAB PO PRN (23:19)
[2022-05-13] MEDS: ACETAMINOPHEN 500 MG TAB PO SCH ×3 (04:08→17:58)
[2022-05-13] MEDS: DICLOFENAC SOD 1% GEL 100 GM TUBE EXT SCH ×2 (04:10→09:18)
[2022-05-13 06:56] LABS: Hematocrit (blood only) 33.3 % (42.0-52.0); Hemoglobin 11.8 g/dl (14.0-18.0)
[2022-05-13] MEDS: POLYETHYLENE (MIRALAX) 17 GM PACK PO SCH ×2 (08:07→20:03)
[2022-05-13] MEDS: LIDOCAINE 5% 1 PATCH TD SCH (08:07)
[2022-05-13] MEDS: SENNA 8.6 MG TAB PO SCH (08:07)
[2022-05-13] MEDS: OXYBUTYNIN CHLORIDE XL 5 MG TABCR PO SCH (08:08)
[2022-05-13 08:53] LABS: BUN Creatinine Ratio 18.5 (10-20); Calcium 8.1 mg/dl (8.5-10.1); Est GFR (African American) 68.4 ml/min
[2022-05-13] MEDS: PANTOprazole 40 MG in SYRINGE 0 ML IV SCH (11:50)
--- NOTE | 2022-05-13 12:06 | Hospitalist Progress Note ---
Date of Service May 13, 2022 Assessment & Plan (1) Sepsis due to gram-negative UTI: Plan: - Resolved. - On admission with fevers, intermittent tachycardia, UA appearing grossly infected. - History of urinary retention (s/p TURP 03/28/2022), unfortunately with continu ed urinary retention issues requiring 4 times daily self-catheterization. - Complicated catheter-associated and urinary retention-associated UTI. - UCx with E. coli sensitive to ceftriaxone, continue Abx Zosyn -> ceftriaxone (Abx started 05/06) - Received bolus and maintenance fluids on admission. - Patient unable to receive fluoroquinolones due to increased Hx of multiple tendon rupture per Orthopedics. - Tylenol/ice as needed for fevers, no fevers since 05/07. (2) Gram-negative bacteremia: Plan: - BCx 05/06/22 showing E. coli sensitive to ceftriaxone. - Ceftriaxone as described above (Abx started 05/06), to complete antibiotics on 05/20. Transition to p.o. Abx on discharge. (3) Pneumothorax: Plan: - R Rib fractures, <4 contiguous. Ground level fall. - CXR: Small right apical pneumothorax with 1.2 cm pleural separation, moderate subcu emphysema. - CT-C/A/P: 1. The posterior right ninth and 10th ribs are fractured in at least two places which includes displaced fractures. Acute nondisplaced fracture of the medial right 11th rib. 2. Small right-sided pneumothorax with subcutaneous and deep tissue emphysema of the right chest wall extending into the right flank and neck. - Pulm consulted and appreciate recommendations this admission: s/p chest tube 05/06 with improvement in dyspnea and pneumo on imaging, chest tube removed 05/08. Pulm has since signed off. Repeat CXR 05/10 with resolution of pneumothorax. - Pain control with scheduled Tylenol and ibuprofen, lidocaine patches, and oxycodone as needed for moderate pain. Dilaudid discontinued as we approach discharge. - Incentive spirometer encouraged, patient with good effort during practice. -PT recommending acute rehab brief stay for strengthening on last evaluation, however with improvement in ambulation since that time. PT and OT to reevaluate tomorrow to update recommendations. Discussed rehab vs. home with home health as options for discharge tomorrow with patient and his . (4) Syncope: Plan: Patient with lightheadedness/dizziness which worsened over 1 day [employer]ING [employer]IMMER, was ambulating to the bathroom when he passed out and fell hitting the radiator striking his right side. Suspect orthostatic in the setting of sepsis and bacteremia. Following fluids and antibiotics patient is normotensive and no further lightheadedness this admission. Discussed adequate PO fluid intake at home on discharge. Echo ordered 05/07 with LVEF 65-70%, no regional wall motion abnormalities, moderate pulmonary HTN (in the setting of acute pneumothorax), repeat per PCP. EKG normal sinus rhythm, QTc 420, no ST segment changes or inversions. No concerning events on Telemetry. (5) DEMETRIUS (acute kidney injury): Plan: - Resolved, creatinine of 1.19 (baseline 0.9-1.2). - 2/2 sepsis and UTI, suspected to be prerenal in the setting of urosepsis, but perhaps also post-obstructive from BPH and urinary retention. - s/p IV fluids and Ames for urinary retention. (6) BPH (benign prostatic hyperplasia): Plan: - S/p cystoscopy and TURP 03/28/2022 for BPH causing need for intermittent catheterization. Last seen 04/2022 as outpatient, has not yet had return of normal bladder activity/function. Straight cathing as needed outpatient. Consideration of CIC/sacral neuromodulation/Gemtesa in the future. Ames placed, draining light yellow urine; in shared decision making with patient, will keep Ames in on discharge with Urology follow-up within 1 week. Treatment of UTI as described above. - Continue tamsulosin. (7) Multiple fractures of ribs: Plan: - As noted above, pain control. (8) GERD (gastroesophageal reflux disease): Plan: - PPI daily. - Continue H2 qHS. (9) Hyponatremia: Plan: -Resolved. -With intermittent confusion 05/08 which has resolved, also convoluted by pain, bacteremia as other possible causes of intermittent confusion. -Urine and Serum Osms suggested dehydration as cause of hyponatremia. (10) Constipation: Plan: -Likely due to opiate therapy, less mobility than usual. -Bowel regimen ordered, with BM 05/12. Plan Code Status: Full code Diet: Regular diet SCDs for DVT ppx, ambulate on demand Telemetry status for now Admission and Anticipated Discharge Date Admission Date: May 06, 2022 Subjective With pain intermittent with movements like trying to adjust in bed for example. Denies SOB, nausea. Did have a BM last night. Review of Systems Review of Systems: All systems reviewed & are unremarkable except as noted in Subjective Physical Exam Constitutional: WD/WN, vitals as above Respiratory: lungs CTA Cardiovascular: RRR, no murmur, no edema Gastrointestinal (Abdomen): normal bowel sounds, soft, nontender, no hepatosplenomegaly Skin: no rashes, warm and dry Psychiatric: A+Ox3, euthymic affect Results & Data Results & Data ([facility]) Vital Signs (Past 12 Hours) Vital Signs Temp Pulse Resp BP BP Pulse Ox O2 Del Method 05/13/22 11:45 36.5 C 55 L 18 133/76 93 Room Air 05/13/22 07:45 36.5 C 58 L 16 133/81 93 Room Air 05/13/22 04:00 36.4 C L 68 18 124/80 96 Room Air PG Care Time/CCT Total # of Minutes Spent Total Time Spent with Patient: Total time spent is greater than 50% in coordination of care (as documented) at patient's floor/unit and/or counseling patient: Coding Level of Care Code 53949 SUB INP/OBS CARE 2/35MIN Diagnoses Sepsis due to gram-negative UTI A41.50; N39.0 Gram-negative bacteremia R78.81 Pneumothorax S27.0XXA Encounter type: initial encounter Pneumothorax type: traumatic Syncope R55 Syncope type: unspecified DEMETRIUS (acute kidney injury) N17.9 BPH (benign prostatic hyperplasia) N40.0 Multiple fractures of ribs S22.41XA Encounter type: initial encounter Fracture type: closed Laterality: right GERD (gastroesophageal reflux disease) K21.9 Hyponatremia E87.1 Constipation K59.00 (3) Pneumothorax Encounter type: initial encounter Pneumothorax type: traumatic Qualified Code(s): S27.0XXA - Traumatic pneumothorax, initial encounter (4) Syncope Syncope type: unspecified Qualified Code(s): R55 - Syncope and collapse (7) Multiple fractures of ribs Encounter type: initial encounter Fracture type: closed Laterality: right Qualified Code(s): S22.41XA - Multiple fractures of ribs, right side, initial encounter for closed fracture
[2022-05-13] MEDS: IBUPROFEN 600 MG TAB PO SCH ×2 (13:44→20:05)
[2022-05-13] MEDS: cefTRIAXone SODIUM 2,000 MG in DEXTROSE 5% 50 ML IV SCH (16:11)
[2022-05-13] MEDS: ALPRAZolam 0.5 MG TABLET PO PRN (19:39)
[2022-05-13] MEDS: TAMSULOSIN HCL 0.4 MG CAP PO SCH (20:06)
[2022-05-13] MEDS: CYCLOBENZAPRINE HCL 5 MG TAB PO PRN (20:06)
[2022-05-13] MEDS: FAMOTIDINE 20 MG TAB PO SCH (20:06)
[2022-05-13] MEDS: MELATONIN 3 MG TAB PO PRN (20:17)
[2022-05-13] MEDS: oxyCODONE HCL IR 5 MG TAB (IMMEDIATE RELEASE) PO PRN (22:11)
[2022-05-14] MEDS: ACETAMINOPHEN 500 MG TAB PO SCH ×2 (02:07→10:03)
[2022-05-14] MEDS: oxyCODONE HCL IR 5 MG TAB (IMMEDIATE RELEASE) PO PRN (05:39)
[2022-05-14] MEDS: POLYETHYLENE (MIRALAX) 17 GM PACK PO SCH (08:29)
[2022-05-14] MEDS: IBUPROFEN 600 MG TAB PO SCH ×2 (08:30→13:52)
[2022-05-14] MEDS: SENNA 8.6 MG TAB PO SCH (08:30)
[2022-05-14] MEDS: LIDOCAINE 5% 1 PATCH TD SCH (08:31)
[2022-05-14] MEDS: OXYBUTYNIN CHLORIDE XL 5 MG TABCR PO SCH (08:31)
[2022-05-14] MEDS: PANTOprazole 40 MG in SYRINGE 0 ML IV SCH (10:04)
--- NOTE | 2022-05-14 11:46 | Discharge Summary ---
Discharge Summary Date of Service May 14, 2022 Admission HPI Per Admitting Provider Oswaldo Rick is a 76-year-old male with a past medical history of BPH, lumbar pain, GERD, atonic bladder, recent COVID who presents to the emergency department after an episode of syncope. He gets up at night to self cath after having a TURP several weeks ago, has felt increasingly weak over the last day or 2. Has had fevers and rigors in the last day. Patient went to use the bathroom last night when he felt dizzy and lightheaded, passed out, and struck the wall and fell to the ground. No hematochezia/melena. Patient does have rib fracture and pneumothorax, critical care was consulted for placement of a chest tube while in ER. Leukocytosis: 11.41 Hemoglobin baseline 1314 0.5, 13.3 on admission with MCV 92 Sodium 132 Potassium 3.6 Creatinine baseline less than 1, admitting creatinine 1.32 with estimated clearance 52 Mild T. bili elevation 1.2, D bili 0.4, AST 43 with normal ALT and alk phos High-sensitivity troponin normal Procalcitonin 0.90 UA grossly infected appearing, UC pending COVID negative. CThead: No acute findings CXR: Small right apical pneumothorax with 1.2 cm pleural separation, moderate subcu emphysema. CT-C: 1. The posterior right ninth and 10th ribs are fractured in at least two places which includes displaced fractures. Acute nondisplaced fracture of the medial right 11th rib. 2. Small right-sided pneumothorax with subcutaneous and deep tissue emphysema of the right chest wall extending into the right flank and neck. 3. No acute posttraumatic intra-abdominal or intrapelvic abnormality. 4. Mild urothelial thickening of the renal collecting systems. Correlate with urinalysis to exclude infection. CT-Cspine: 1. No acute fracture or subluxation of the cervical spine identified. 2. Trace right apical pneumothorax with moderate subcutaneous emphysema of the imaged right upper chest and right neck. Please refer to the chest CT of same day for additional thoracic findings. EKG: nsr, , QTc 420, no ST segment changes or T wave inversion Patient reports he has had 3 to 4 days of low-grade fever, shaking, and worsening global weakness without focal findings. Has had to cath twice daily to urinate since his TURP, this has not changed. Was going to the bathroom today when he became more fatigued, and lightheaded,Fell to R side and struck radiator. No shortness of breath/chils Patient has pain, mildly improved since arrival to ER and right lower ribs. No flail chest Denies upper chest pain, sternal pain, left-sided chest pain No shortness of breath, difficulty breathing. Reports he is not short of breath before coming in, and does not feel short of breath after chest tube placement Chronic catheterization for difficulty urinating, ?increased odor with fever and chills prior to admission. Fell striking radiator prior to admission Medical History: Reviewed Medications: Reviewed Surgical History: Reviewed Allergies: Reviewed. Patient may not receive fluoroquinolones due to increased risk of tendon rupture or Flagyl Social History: Rare social alcohol use, none recently. No tobacco use. No recreational drug Code Status: Full code Admission Exam Per Admitting Provider General: NAD. Cooperative. oriented to name/place/year and answers questions appropriately HEENT: normocephalic. Vision/hearing intact Pulm: Right-sided chest tube in place. Postplacement CTAB A&P. -wheezes, - rales, -rhonchi. Symmetrical chest rise. No increased work of breathing. No respiratory distress. Right lower rib tenderness to palpation, no crepitus. No flail chest. Cardiac: RRR, soft systolic murmur. Radial pulses intact and symmetrical. Abdominal: Nontender, nondistended, soft. BS present. : Ames in place draining light yellow urine Extremities: Warm, dry. No edema. Distal extremity strength is intact in all 4 limbs, sensation of soft touch is intact Principal Dx & Hospital Course #1 = Principal Diagnosis (1) Sepsis due to gram-negative UTI: - Resolved. - On admission with fevers, intermittent tachycardia, UA appearing grossly infected. - History of urinary retention (s/p TURP 03/28/2022), unfortunately with continued urinary retention issues requiring 4 times daily self-catheterization. - Complicated catheter-associated and urinary retention-associated UTI. - UCx with E. coli sensitive to ceftriaxone, continue Abx Zosyn -> ceftriaxone (Abx started 05/06), completed >7 days of IV Abx at this point so no further Abx on discharge. - Tylenol/ice as needed for fevers, no fevers since 05/07. (2) Gram-negative bacteremia: - BCx 05/06/22 showing E. coli sensitive to ceftriaxone. - Ceftriaxone as described above (Abx started 05/06), completed today 05/14 and no Abx on discharge per IDSA guidelines. (3) Pneumothorax: - R Rib fractures, <4 contiguous. Ground level fall. - CXR: Small right apical pneumothorax with 1.2 cm pleural separation, moderate subcu emphysema. - CT-C/A/P: 1. The posterior right ninth and 10th ribs are fractured in at least two places which includes displaced fractures. Acute nondisplaced fracture of the medial right 11th rib. 2. Small right-sided pneumothorax with subcutaneous and deep tissue emphysema of the right chest wall extending into the right flank and neck. - Pulm consulted and appreciate recommendations this admission: s/p chest tube 05/06 with improvement in dyspnea and pneumo on imaging, chest tube removed 05/08. Pulm has since signed off. Repeat CXR 05/10 with resolution of pneumothorax. - Pain control with scheduled Tylenol and ibuprofen, lidocaine patches, with oxycodone as needed for breakthrough pain. - Incentive spirometer encouraged, patient with good effort during practice. - Will have home health PT on discharge, had good tolerance and ability to move about his room and do steps with minimal assistance and so acute rehab was not recommended. (4) Syncope: Patient with lightheadedness/dizziness which worsened over 1 day [employer] SAL[employer]PRES[employer], was ambulating to the bathroom when he passed out and fell hitting the radiator stri sandeep his right side. Suspect orthostatic in the setting of sepsis and bacteremia. Following fluids and antibiotics patient is normotensive and no further lightheadedness this admission. Discussed adequate PO fluid intake at home on discharge. Echo ordered 05/07 with LVEF 65-70%, no regional wall motion abnormalities, moderate pulmonary HTN (in the setting of acute pneumothorax), repeat per PCP. EKG normal sinus rhythm, QTc 420, no ST segment changes or inversions. No concerning events on Telemetry. - Also discussed that if he continues to have dizziness and falls without evidence of infection, may want to discuss Ambien/Xanax/Flexeril use at home with his PCP to see if that is contributing in any way. (5) DEMETRIUS (acute kidney injury): - Resolved, creatinine of 1.19 (baseline 0.9-1.2). - 2/2 sepsis and UTI, suspected to be prerenal in the setting of urosepsis, but perhaps also post-obstructive from BPH and urinary retention. - s/p IV fluids and Ames for urinary retention. (6) BPH (benign prostatic hyperplasia): - S/p cystoscopy and TURP 03/28/2022 for BPH causing need for intermittent catheterization. Last seen 04/2022 as outpatient, has not yet had return of normal bladder activity/function. Straight cathing as needed outpatient. Consideration of CIC/sacral neuromodulation/Gemtesa in the future. Ames placed, draining light yellow urine; in shared decision making with patient, will keep Ames in on discharge with follow-up within 1 week. Treatment of UTI as described above. - Continue tamsulosin. (7) Multiple fractures of ribs: - As noted above, pain control. (8) GERD (gastroesophageal reflux disease): - Cont home famotidine (9) Hyponatremia: -Resolved. -With intermittent confusion 05/08 which has resolved, also convoluted by pain, bacteremia as other possible causes of intermittent confusion. -Urine and Serum Osms suggested dehydration as cause of hyponatremia. (10) Constipation: -Likely due to opiate therapy, less mobility than usual. -Bowel regimen ordered, with BM 05/12. Plan Dispo: home with home health services Discharge Exam Constitutional WD/WN, vitals as above Respiratory normal respiratory effort, lungs clear to auscultation Cardiovascular RRR, no murmur, no edema Gastrointestinal (Abdomen) normal bowel sounds, soft, nontender, no hepatosplenomegaly Psychiatric A+Ox3, euthymic affect Updated Medication List Medication Instructions Recorded Confirmed Type zolpidem 5 mg tablet (Ambien) 5 - 10 mg PO HS PRN Insomnia 10/17/18 05/06/22 History ferrous sulfate 325 mg (65 mg 325 mg PO QAM 12/28/18 05/06/22 History iron) tablet (iron) sildenafil 100 mg tablet 100 mg PO DAILY PRN Erectile 12/28/18 05/06/22 History Dysfunction Dhea 1 dose topical QAM 07/19/21 05/06/22 History multivitamin 2 tab PO QAM 07/26/21 05/06/22 History prednisone 10 mg tablet 10 mg PO DAILY PRN back spasm 11/17/21 05/06/22 History cyclobenzaprine 5 mg tablet 5 mg PO TID PRN muscle spasm #30 02/09/22 05/06/22 Rx tabs alprazolam 0.5 mg tablet (Xanax) 0.5 mg PO HS PRN Anxiety 03/21/22 05/06/22 History betamethasone dipropionate 0.05 % 1 applic topical BID PRN Skin 03/21/22 05/06/22 History topical ointment Irritation melatonin 10 mg tablet 10 mg PO HS PRN Sleep 03/21/22 05/06/22 History tamsulosin 0.4 mg capsule (Flomax) 0.4 mg PO HS 03/21/22 05/06/22 History oxybutynin chloride 5 mg 5 mg PO DAILY #30 tabs 04/02/22 05/06/22 Rx tablet,extended release 24 hr (Ditropan XL) famotidine 20 mg tablet 20 mg PO HS 90 days #90 tabs 04/23/22 05/06/22 Rx docusate sodium 100 mg capsule 100 mg PO BID PRN stool softener 05/06/22 05/06/22 History (Col-Rite) acetaminophen 500 mg tablet 1,000 mg PO Q8H #0 tabs 05/14/22 Rx (Tylenol Extra Strength) ibuprofen 600 mg tablet 600 mg PO TID #0 tabs 05/14/22 Rx lidocaine 5 % topical patch 1 patch transdermal QAM #0 ea 05/14/22 Rx oxycodone 5 mg tablet See Rx Instructions .Route 05/14/22 Rx .COMPLEX PRN pain #30 tabs polyethylene glycol 3350 17 gram 17 g PO BID #0 ea 05/14/22 Rx oral powder packet (Miralax) sennosides 8.6 mg tablet (Senokot) 17.2 mg PO QAM #0 tabs 05/14/22 Rx Hospital Stay Data Consultations 05/06/22 12:03 Consult Navigation Teacher Stat 05/06/22 13:46 ED Decision to Admit Stat 05/06/22 16:41 Consult Pulmonology Routine Diagnostic Imagining Performed 05/06/22 10:20 CT abd pelvis IV con only Stat CT cervical spine wo con Stat CT chest diagnostic w con Stat CT head/brain wo con Stat Discharge Instructions Given to Patient (Per Discharging Provider) You are admitted to the hospital for dizziness and passing out, causing a fall with rib fractures, and a pneumothorax, and air collection around the lung that makes it difficult to breathe. You had a chest tube, and you are followed by the lung doctors in order to make sure that that pneumothorax resolved, which it did, and your chest tube was able to be removed. We suspect that the source of your passing out and fall was because of a urinary infection causing sepsis and bacterial infection of the blood. You had a Ames catheter placed, which will remain in place until you see Dr. Rincon next week. You were given IV antibiotics, which will be transitioned to oral antibiotics on discharge. These antibiotics will complete on 05/20. You should finish these antibiotics out even if you are feeling completely well before the end of them. They were sent to _. Pain regimen: Ibuprofen 600 mg every 8 hours Tylenol 1000 mg every 8 hours Lidocaine patches once daily Voltaren gel to affected painful areas every 6 hours as needed The medications above are your controller medications. These are intended to "get ahead of " the pain so that you can perform your daily activities and hopefully not need as much oxycodone. Oxycodone 1-2 tablets every 8 hours as needed for severe or breakthrough pain, or prior to physical therapy. This is for severe pain and to only be used if the above is not working, for example prior to going to sleep so that you can have comfortable rest, or before strenuous activities. Home Safety: If you feel lightheaded, immediately sit down on a safe surface li ke a couch or bed, and if absolutely necessary sit on the floor if you do not have a couch or bed nearby. Wait until seen by home health physical therapy to use your shower. Instead, wash up in the sink like you have been doing in the hospital. Walk slowly, purposefully, and with the walker for now. Take your time and use help from the therapist and your when you need it to get out of bed, go up stairs, etc. Urology concerns: After discussing your difficulties with difficulty with straight cathing, urinary infection due to urinary retention, we will keep the Ames catheter in and you will have follow-up with Dr. Rincon's office in the near future, we will help schedule this for hopefully next week. You should call his office if you do not hear from their office by tomorrow for an appointment time. Lung concerns: On admission you had what is called a pneumothorax, and air collection as described above. This resolved a few days into your admission. If you are having worsening of trouble breathing, please let your primary care doctor know and if you have urgent concerns please report back to the hospital for urgent evaluation. If you have any episodes of feeling like you are going to pass out, that is another reason to report back to the hospital for evaluation. It is important that you drink adequate fluid at home, as you were dehydrated on admission and this will help keep your blood volume up so that you do not feel lightheaded or dizzy. Follow up: Dr. Rincon and Dr. Arce. Our records will be sent to their offices. Total Time Total Time Spent Total Time Spent (In Minutes): 45 min Coding Level of Care Code 24908 INP/OBS DISCH >30 MIN Diagnoses Sepsis due to gram-negative UTI A41.50; N39.0 Gram-negative bacteremia R78.81 Pneumothorax S27.0XXA Encounter type: initial encounter Pneumothorax type: traumatic Syncope R55 Syncope type: unspecified DEMETRIUS (acute kidney injury) N17.9 BPH (benign prostatic hyperplasia) N40.0 Multiple fractures of ribs S22.41XA Encounter type: initial encounter Fracture type: closed Laterality: right GERD (gastroesophageal reflux disease) K21.9 Hyponatremia E87.1 Constipation K59.00
== END 2022-05-14 15:45 | disposition home health service (06) | DRG 872 ==
LOC: ED 09:49 → SUATTDRO 14:46 → 4W 14:46 → 2N 05-10 22:30

== ENCOUNTER 2023-09-05 14:39 | Inpatient (IN) ==
[2023-09-05 15:45] LABS: Basophils # (auto) 0.04 K/uL (0.00-0.20); Basophils % (auto) 0.3 %; Hematocrit (blood only) 38.1 % (42.0-52.0); Hemoglobin 12.9 g/dl (14.0-18.0); Immature Granulocytes # (auto) 0.13 K/uL (0.01-0.20); Immature Granulocytes % (auto) 0.8 %; Lymphocytes # (auto) 1.16 K/uL (1.20-3.40); Lymphocytes % (auto) 7.3 %; Mean Corpuscular Hemoglobin 32.9 pg (25.0-34.0); Mean Corpuscular Hgb Conc 33.9 g/dL (32.0-36.0); Mean Corpuscular Volume 97.2 fL (80.0-100.0); Mean Platelet Volume 10.6 fL (9.4-12.4); Monocytes # (auto) 1.19 K/uL (0.11-0.59); Monocytes % (auto) 7.5 %; Neutrophils # (auto) 13.45 K/uL (1.40-6.50); Neutrophils % (auto) 84.1 %; Platelet Count 192 K/uL (130-400); RDW Coefficient of Variation 13.2 % (11.5-14.5); RDW Standard Deviation 47.5 fL (36.4-46.3); Red Blood Count 3.92 M/uL (4.70-6.10); White Blood Count 15.97 K/ul (4.8-10.8)
[2023-09-05 15:45] LABS: iSTAT Creatinine 1.4 mg/dl (0.6-1.3); iSTAT Hemoglobin 13.3 g/dl (14.0-18.0); iSTAT Ionized Calcium 1.05 mmol/l (1.12-1.32); iSTAT Potassium 4.1 mmol/L (3.3-5.0)
[2023-09-05] MEDS: OPTIRAY 320 100ml IV ONE (16:00)
[2023-09-05 16:03] LABS: Albumin Globulin Ratio 1.4 (0.9-2); Albumin Level 3.8 gm/dl (3.4-5.0); BUN Creatinine Ratio 16.8 (10-20); Calcium 8.3 mg/dl (8.6-10.3); Creatinine Clr Calc Pharmacy 56.2 ml/min; Est GFR (African American) 67.4 ml/min; Est GFR (Non-African American) 58.2 ml/min; Globulin 2.8 gm/dl (2.5-4.0); Potassium 4.2 mmol/L (3.5-5.1); Total Protein 6.6 gm/dl (6.0-8.3)
[2023-09-05 16:09] LABS: Troponin I High Sensitivity 12.6 pg/ml (0-20)
[2023-09-05 16:13] LABS: Appearance Urine Cloudy (Clear); Bacteria Urine Automated 1+ (None Seen); Bilirubin Urine 1+ (Negative); Blood Urine 2+ (Negative); Color Urine Orange; Glucose Urine UA Negative (Negative); Ketones Urine Trace (Negative); Leukocyte Esterase Urine 3+ (Negative); Nitrite Urine Positive (Negative); Protein Urine 1+ (Negative); RBC Urine Automated 0-2 /hpf (0-2); Specific Gravity Urine 1.021 (1.000-1.030); Urobilinogen Urine Negative (Negative); WBC Urine Automated >50 /hpf (0-5); pH Urine 5.5 (4.5-7.5)
--- NOTE | 2023-09-05 16:15 | CT Scan Report ---
CT abd pelvis IV con only CLINICAL HISTORY: diverticulitis, recurrent TECHNIQUE: Helical axial images of the abdomen and pelvis were obtained and displayed. Automated dose lowering techniques and/or adjustment according to patient size were utilized for this exam. This e xam was performed with intravenous contrast. CT DOSE: 1177.29 mGy.cm COMPARISON: Comparison is made to CT abdomen pelvis 07/26/2023 FINDINGS: Lower chest: Bibasilar atelectasis versus scarring is seen. Liver: Unremarkable. No focal lesions are seen. Gallbladder and biliary tree: No calcified gallstones. Normal caliber wall. No intra- or extrahepatic biliary ductal dilation. Pancreas: Unremarkable, no focal lesions. Spleen: Unremarkable. Adrenals: Unremarkable. Kidneys and ureters: Renal cysts are seen. Bladder: Unremarkable. Reproductive organs: Unremarkable. Bowel: Diverticulosis is seen without diverticulitis. The appendix is normal. There is a tiny hiatal hernia. Lymph nodes Retroperitoneal: Unremarkable. Pelvic: Unremarkable. Mesenteric: Unremarkable. Peritoneum: Normal. Vessels: Atherosclerotic calcifications are seen. Abdominal wall: A fat-containing umbilical hernia is seen. Left fat-containing inguinal hernia is see n. Bones: Degenerative changes in the visualized spine. Subacute right rib fractures are seen. IMPRESSION: No acute abnormalities and in particular no evidence of diverticulitis despite presence of diverticul osis.. ACT 112: Negative or not required by law. Electronically signed by: Vidal Abbott M.D. 09/05/2023 4:12 PM
--- NOTE | 2023-09-05 16:32 | Emergency Department Note ---
Impression & Plan UTI (urinary tract infection), Sepsis ED Provider Note NAME: AARON GONZALEZ AGE: 78 SEX: M : 1945 ARRIVES VIA: Walk-In INFORMANT: Patient, ED PROVIDER(S): Anna Daugherty MD CHIEF COMPLAINT: Abdominal pain HPI: This is a 78-year-old female presenting for lower abdominal pain. Patient notes that he has had previous history of diverticulitis has been on Augmentin and most recently Flagyl/Bactrim. He notes that his symptoms have recurred where he has lower abdominal pain that feels like a previous diverticular episode. He notes bowel movement yesterday otherwise no nausea or vomiting. he did mention that he had a fever up to 102 last night. He felt very weak this morning and slipped out of bed and could not get up due to weakness. He notes he feels tired at this time very weak. ROS: See above HPI for pertinent positives & negatives. A total of 10 systems reviewed and were otherwise negative. PHYSICAL EXAMINATION: general: resting comfortably in no acute distress Head: Normocephalic and atraumatic Eyes: Normal inspection, extraocular muscles intact Ear, nose, throat: Normal external exam Neck: Normal range of motion Respiratory: lungs clear to auscultation bilaterally Cardiovascular: Regular rate/rhythm, no murmur GI: soft, nontender, no guarding or rebound Extremities: nontender, moves all extremities Neuro: The patient awake and alert, appropriately conversive, no focal deficits, symmetric faces Skin: Warm, dry, and intact MEDICAL DECISION MAKING: This is a 78-year-old male sent for low abdominal pain. Patient is only minimally tender in the lower abdomen without rebound or guarding. Considered diverticulitis, SBO, pyelonephritis, dissection, cystitis. -Patient's blood work is reviewed showing leukocytosisTo almost 16. Hemoglobin is 12.9. - Electrolytes are normal limits. Creatinine within normal limits. Transaminitis or lipase elevation -Patient CT imaging sporadically does not show diverticulitis. -Urinalysis does not actually reveal significant UTI. -Upon reevaluation at approximately 4: 30, p.m., patient now has slight hypotension. Patient also feels chilled and shaky. Now with source, slight hypotension will proceed with fluid resuscitation, 2.5 L based on ideal body weight and Rocephin for UTI -Patient noted immediate improvement in blood pressure back to the 100 systolic from 80s previously. -Patient care discussed with Dr. Dunlap, hospitalist for admission Differential diagnosis: See above ER treatment provided: See below Diagnostics interpreted by me: ECG: None Cardiac Monitoring: An order was placed for continuous cardiac monitoring. The monitor shows a rate of 82 with sinus rhythm. Laboratory studies: As stated above and show below. Imaging studies: See below. Past Med/Surg History Problem List (Updated 09/05/23 @ 17:01 by Anna Daugherty MD) Sepsis (Acute) UTI (urinary tract infection) (Acute) Foot pain Blepharitis Penile rash Abdominal pain, chronic, left lower quadrant Renal cyst Inguinal hernia recurrent bilateral Diverticulitis large intestine Situational stress BPH (benign prostatic hyperplasia) Atonic bladder straight caths self QID, able to urinate himself "sometimes" Irritable bowel syndrome GERD (gastroesophageal reflux disease) Abdominal aortic ectasia Hiatal hernia Renal cyst Pyelonephritis Constipation Ischial bursitis of right side Prostatitis Syncope (Acute) Sinusitis Vocal cord nodules Hemangioma Colitis Pelvic pain in male Sleep disorder Lumbar pain determined by palpation Sinusitis Urinary retention due to benign prostatic hyperplasia COVID Syncope (Acute) Chest wall contusion (Acute) Multiple fractures of ribs (Acute) Sepsis due to gram-negative UTI Abdominal pain Irritable bowel syndrome Plantar fasciitis, right Change in bowel habits Anxiety Medical History (Updated 09/05/23 @ 17:01 by Anna Daugherty MD) Cheilitis Atopic dermatitis Conjunctivitis Laryngitis Diverticulitis large intestine 11/02/08 admitted to [facility] (proximal sigmoid) Brain aneurysm COVID Acquired deviated nasal septum CHI (closed head injury) History of recent hospitalization syncope/fall/severe UTI, treated at [facility] inpatient. traumatic pneumothorax treated with chest tube. denies current sob. Traumatic retroperitoneal hematoma pt unsure of the details, possibly related to pneumothorax in 05/2022. Traumatic pneumothorax from a fall in 05/2022. patient had a fall after his syncope/severe UTI and was treated at [facility] inpatient. had a chest tube. no current issues to his knowledge at this time. Arthritis Hx of basal cell carcinoma History of COVID-19 06/2021>TEST DONE AT [facility] *SYMPTOMS>FATIGUE/DIZZINESS (RESOLVED) Fractured nose 06/2021-DISPLACEMENT FROM FALL; 2nd fall later 2021-refractured nose>reset in dr rico's office Back problem Claustrophobia Surgical History S/P TURP unsuccessful -- 03/2022 History of cystoscopy Chalazion REPAIRED X 2 Difficult intubation Possibly. Glidescope #4 with previous tibial tendon repair without issues per 2017 record History of surgical removal of lesion History of tooth extraction Status post tendon repair RT and LT FOOT History of right inguinal hernia repair History of colonoscopy History of esophagogastroduodenoscopy (EGD) Family History Father Family history of diabetes mellitus Lung cancer Brother Diabetes Mother Kidney malignancy Other No family history of adverse response to anesthesia No family history of bleeding disorder Social History Smoking Status: Never smoker Second Hand Exposure: Yes (as a child); Do You Dip or Chew Tobacco: No; Hx Alcohol Use: Yes Alcohol type: beer Alcohol Intake Frequency: 2-4 x/Month Hx Substance Use: No Preferred Language: Chinese Communication Ability: Effective Visual Impairment: No Limitations Solar Photovoltaic Electrician Required: No Beliefs That Will Affect Care: Tenriism Tenriism Beliefs: RESTORATIONIST marital status: Current Living Situation: Spouse 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 How many Children do You have: 2 Feels Safe at Home: Yes during the past year weight has: remained stable Assistive Devices: Glasses Allergies Allergies Allergy/AdvReac Type Severity Reaction Status Date / Time Fish Containing Products Allergy Intermediate Nausea Verified 09/05/23 16:53 shellfish derived Allergy Intermediate Nausea Verified 09/05/23 16:53 ciprofloxacin [From Cipro] AdvReac Unknown see comment Verified 09/05/23 16:53 metronidazole [From Flagyl] AdvReac Unknown see comment Verified 09/05/23 16:53 Home Meds Home Medications Medication Instructions Recorded Confirmed zolpidem 5 mg tablet (Ambien) 5 - 10 mg PO HS PRN Insomnia 10/17/18 09/05/23 ferrous sulfate 325 mg (65 mg 325 mg PO QAM 12/28/18 09/05/23 iron) tablet (iron) Dhea 1 dose topical QAM 07/19/21 09/05/23 multivitamin 2 tab PO QAM 07/26/21 09/05/23 melatonin 10 mg tablet 10 mg PO HS PRN Sleep 03/21/22 09/05/23 docusate sodium 100 mg capsule 100 mg PO BID PRN stool softener 05/06/22 09/05/23 (Col-Rite) diclofenac sodium 75 mg 75 mg PO BID PRN Severe Pain 10/04/22 09/05/23 tablet,delayed release (Scale Score 7-10) meloxicam 15 mg tablet 15 mg PO DAILY PRN Pain 10/04/22 09/05/23 polyethylene glycol 3350 17 gram 17 g PO BID PRN Constipation 10/04/22 09/05/23 oral powder packet (Miralax) ibuprofen 600 mg tablet 600 mg PO TID PRN Pain 10/22/22 09/05/23 alprazolam 0.5 mg tablet (Xanax) 0.5 mg PO HS PRN Anxiety 08/01/23 09/05/23 Previous Rx's Medication Instructions Recorded famotidine 20 mg tablet 20 mg PO HS 90 days #90 tabs 07/09/22 sildenafil 100 mg tablet 100 mg PO DAILY PRN Erectile 07/17/22 Dysfunction #30 tabs potassium gluconate 550 mg (90 mg) 550 mg PO DAILY #30 tabs 07/24/23 tablet metronidazole 500 mg tablet 500 mg PO BID #30 tabs 08/08/23 betamethasone dipropionate 0.05 % 1 applic topical DAILY #45 grams 08/15/23 topical ointment Results & Data (ED) Vital Signs Vital Signs - 24 hr 09/05/23 14:43 09/05/23 15:24 Temperature 37.2 C Temperature Source Oral Pulse Rate 75 58 L Respiratory Rate 18 Respiratory Effort / Characteristics Non-Labored Spontaneous Respiratory Depth Normal Respiratory Pattern Regular Blood Pressure 100/60 Blood Pressure Mean 73 Blood Pressure Position Sitting Pulse Oximetry 97 Oxygen Delivery Method Room Air Sepsis Recent Fever Within 48 Hours Yes Sepsis New/Unexplained Change in Mental Status N/A Sepsis Action Taken by Nursing No Action Required Laboratory Data 09/05/23 15:26 09/05/23 15:26 Lab Results 09/05/23 09/05/23 Range/Units 15:26 15:31 WBC 15.97 H (4.8-10.8) K/ul RBC 3.92 L (4.70-6.10) M/uL Hgb 12.9 L (14.0-18.0) g/dl POC Hgb 13.3 L (14.0-18.0) g/dl Hct 38.1 L (42.0-52.0) % POC Hct 39 L (42-52) % MCV 97.2 (80.0-100.0) fL MCH 32.9 (25.0-34.0) pg MCHC 33.9 (32.0-36.0) g/dL RDW Std Deviation 47.5 H (36.4-46.3) fL RDW Coeff of Julio Cesar 13.2 (11.5-14.5) % Plt Count 192 (130-400) K/uL MPV 10.6 (9.4-12.4) fL Immature Gran % (Auto) 0.8 % Neut % (Auto) 84.1 % Lymph % (Auto) 7.3 % [place] % (Auto) 7.5 % Eos % (Auto) 0.0 % Baso % (Auto) 0.3 % Neut # (Auto) 13.45 H (1.40-6.50) K/uL Lymph # (Auto) 1.16 L (1.20-3.40) K/uL [place] # (Auto) 1.19 H (0.11-0.59) K/uL Eos # (Auto) 0.00 (0.00-0.50) K/uL Baso # (Auto) 0.04 (0.00-0.20) K/uL Immature Gran # (Auto) 0.13 (0.01-0.20) K/uL POC Sodium 135 (135-144) mmol/L Sodium 135 L (136-145) mmol/L POC Potassium 4.1 (3.3-5.0) mmol/L Potassium 4.2 (3.5-5.1) mmol/L POC Chloride 100 L (101-112) mmol/L Chloride 101 (98-107) mmol/L Carbon Dioxide 27 (21-32) mmol/L POC Total CO2 24 (24-31) mmol/L Anion Gap 7 (3-11) POC Anion Gap 16.0 (16-25) mmol/L POC BUN 19 H (7-18) mg/dl BUN 20 (6-23) mg/dl Creatinine 1.19 (0.6-1.4) mg/dl POC Creatinine 1.4 H (0.6-1.3) mg/dl Est Cr Clr Drug Dosing 56.2 ml/min Est GFR ( Amer) 67.4 ml/min Est GFR (Non-Af Amer) 58.2 ml/min BUN/Creatinine Ratio 16.8 (10-20) Glucose 112 H (70-99(Fasting)) mg/dl POC Glucose (other) 109 H (70-99) mg/dl Lactate 1.7 (0.4-2.0) mmol/L Calcium 8.3 L (8.6-10.3) mg/dl POC Ioniz Calcium Humza 1.05 L (1.12-1.32) mmol/l Total Bilirubin 1.0 (0.2-1.0) mg/dl AST 15 (13-39) U/L ALT 9 (7-52) U/L Alkaline Phosphatase 35 (34-104) U/L Troponin I High Sens 12.6 (0-20) pg/ml Total Protein 6.6 (6.0-8.3) gm/dl Albumin 3.8 (3.4-5.0) gm/dl Globulin 2.8 (2.5-4.0) gm/dl Albumin/Globulin Ratio 1.4 (0.9-2) Lipase 11 (11-82) U/L Urine Color Becker Urine Appearance Cloudy A (Clear) Urine pH 5.5 (4.5-7.5) Ur Specific Tat[place] 1.021 (1.000-1.030) Urine Protein 1+ H (Negative) Urine Glucose (UA) Negative (Negative) Urine Ketones Trace H (Negative) Urine Blood 2+ H (Negative) Urine Nitrite Positive A (Negative) Urine Bilirubin 1+ H (Negative) Urine Urobilinogen Negative (Negative) Ur Leukocyte Esterase 3+ H (Negative) Urine WBC (Auto) >50 H (0-5) /hpf Urine RBC (Auto) 0-2 (0-2) /hpf U Hyaline Cast (Auto) 3-5 H (0-2) /lpf U Epithel Cells (Auto) 3-5 H (0-2) /hpf Urine Bacteria (Auto) 1+ H (None Seen) Administered Medications Sodium Chloride (Nss) 1,000 mls @ 999 mls/hr IV .Q1H1M MERCEDES Stop: 09/05/23 18:30 Last Admin: 09/05/23 16:44 Dose: 999 mls/hr Documented By: DUNG Sodium Chloride (Nss) 500 mls @ 999 mls/hr IV .Q31M ONE Stop: 09/05/23 17:03 Last Admin: 09/05/23 16:44 Dose: 999 mls/hr Documented By: DUNG Discontinued Medications Ceftriaxone Sodium (Rocephin) 2,000 mg in 50 mls @ 100 mls/hr IV NOW STA Stop: 09/05/23 16:59 Last Admin: 09/05/23 16:44 Dose: 100 mls/hr Documented By: DUNG Ioversol (Optiray 320 100ml) 93 ml IV ONCE ONE Stop: 09/05/23 16:01 Last Admin: 09/05/23 16:00 Dose: 93 ml Documented By: LENARD Imaging Data Radiologist's Impression: Abdomen/Pelvis CT 09/05/23 14:57 CT abd pelvis IV con only CLINICAL HISTORY: diverticulitis, recurrent TECHNIQUE: Helical axial images of the abdomen and pelvis were obtained and displayed. Automated dose lowering techniques and/or adjustment according to patient size were utilized for this exam. This exam was performed with intravenous contrast. CT DOSE: 1177.29 mGy.cm COMPARISON: Comparison is made to CT abdomen pelvis 07/26/2023 FINDINGS: Lower chest: Bibasilar atelectasis versus scarring is seen. Liver: Unremarkable. No focal lesions are seen. Gallbladder and biliary tree: No calcified gallstones. Normal caliber wall. No intra- or extrahepatic biliary ductal dilation. Pancreas: Unremarkable, no focal lesions. Spleen: Unremarkable. Adrenals: Unremarkable. Kidneys and ureters: Renal cysts are seen. Bladder: Unremarkable. Reproductive organs: Unremarkable. Bowel: Diverticulosis is seen without diverticulitis. The appendix is normal. There is a tiny hiatal hernia. Lymph nodes Retroperitoneal: Unremarkable. Pelvic: Unremarkable. Mesenteric: Unremarkable. Peritoneum: Normal. Vessels: Atherosclerotic calcifications are seen. Abdominal wall: A fat-containing umbilical hernia is seen. Left fat-containing inguinal hernia is seen. Bones: Degenerative changes in the visualized spine. Subacute right rib fractures are seen. IMPRESSION: No acute abnormalities and in particular no evidence of diverticulitis despite presence of diverticulosis.. ACT 112: Negative or not required by law. Electronically signed by: Vidal Abbott M.D. 09/05/2023 4:12 PM Discharge Plan Visit Data Chief Complaint: Abdominal Pain Stated Complaint: FEVER, ABDOMINAL PAIN ED Provider: Anna Daugherty Discharge Problem: UTI (urinary tract infection), Sepsis Forms Stand Alone Forms: [facility] Prescriptions Prescriptions: No Action sildenafil 100 mg tablet 100 mg PO DAILY PRN (Reason: Erectile Dysfunction) Qty: 30 3RF multivitamin Tablet 2 tab PO QAM Patient Comments: chewable gummies famotidine 20 mg tablet 20 mg PO HS 90 Days Qty: 90 3RF potassium gluconate 550 mg (90 mg) tablet 550 mg PO DAILY Qty: 30 2RF alprazolam [Xanax] 0.5 mg tablet 0.5 mg PO HS PRN (Reason: Anxiety) betamethasone dipropionate 0.05 % ointment 1 applic topical DAILY Qty: 45 0RF metronidazole 500 mg tablet 500 mg PO BID Qty: 30 0RF Rx Instructions: STARTED 08/16/23 FOR 15 DAYS. PER PT "HAVE A DAY OR TWO LEFT". zolpidem [Ambien] 5 mg Tablet 5 - 10 mg PO HS PRN (Reason: Insomnia) ferrous sulfate [iron] 325 mg (65 mg iron) Tablet 325 mg PO QAM docusate sodium [Col-Rite] 100 mg capsule 100 mg PO BID PRN (Reason: stool softener) polyethylene glycol 3350 [Miralax] 17 gram powder in packet 17 g PO BID PRN (Reason: Constipation) meloxicam 15 mg tablet 15 mg PO DAILY PRN (Reason: Pain) diclofenac sodium 75 mg tablet,delayed release (DR/EC) 75 mg PO BID PRN (Reason: Severe Pain (Scale Score 7-10)) Dhea 1 dose topical QAM Rx Instructions: 50mg once daily melatonin 10 mg Tablet 10 mg PO HS PRN (Reason: Sleep) ibuprofen 600 mg tablet 600 mg PO TID PRN (Reason: Pain) Referrals Referrals: Bernard Arce MD [Primary Care Provider] -
--- NOTE | 2023-09-05 16:39 | History & Physical Report ---
Date of Service September 05, 2023 Assessment & Plan (1) UTI (urinary tract infection): Plan: Complicated UTI Infected appearing UA with fever and leukocytosis Lactate normal. Borderline hypotension, no tachycardia or hypoxia Blood cultures ordered admission, may be sterilized as antibiotics have been given prior to this. Patient did not initially meet sepsis criteria in ER when antibiotics were ordered Patient was not hypotensive and did not meet sepsis criteria on initial ER evaluation however subsequently did have hypotension to the 80s on hospice reevaluation. Denies history of CHF. Ordered 1500 cc NSS by ER at time of development of hypotension. sepsis 30 cc/kg 2556 cc fluid recommendations, additional 1 L Plasma-Lyte ordered on hospitalist evaluation Rocephin ordered (2) Sepsis: Plan: As noted (3) Atonic bladder: Plan: Straight cath as needed, if very irritated or recurrent difficulty with cath may place Ames as needed Plan History of diverticulitis No left lower quadrant tenderness to palpation, no evidence of diverticulitis on CT. Flagyl course complete, this is not continued on admission CTA/P is without evidence of acute diverticulitis, diverticulosis is noted Flagyl continued, patient is on Rocephin as noted above Last colonoscopy 10/2022 with sigmoid diverticulosis, nonbleeding internal hemorrhoids, otherwise unremarkable Chronic stable issues: History of constipation: Continue MiraLAX, bowel regimen Anxiety: Continue alprazolam at bedtime as needed DVT prophylaxis: Heparin Disposition: Medical surgical CODE STATUS: Full code Diet: Regular History of Present Illness Primary Care Provider: Bernard Arce MD Oswaldo is a 78-year-old male with multiple episodes of recurrent diverticulitis, and 2 episodes of diverticulitis in the previous 2 months. He has been on Bactrim however tolerated this poorly and this was discontinued, and was subsequently on Flagyl 500 twice daily for an extended course of 1 month and was pending follow-up to [facility]. He presents to the ER with fever of 102, recurrent abdominal pain similar to prior episodes recurrent diverticulitis, difficulty ambulating due to weakness and fatigue. On ER evaluation CT did not show evidence of diverticulitis, however it does show an infected appearing UA and patient is recommended for inpatient treatment due to concurrent leukocytosis and weakness limiting ambulation Seen at the bedside. He reports the last 24 hours he has had low pelvic discomfort. Clarifies that is abdomen it is normally tender in the left lower quadrant with his diverticulitis however this is not currently sore but has had some feeling of pelvic pressure and discomfort with urination. He has felt feverish and has had shaking chills the last 24 hours. Has been lightheaded and a little dizzy. No chest pain or chest pressure. Denies shortness of breath. Denies history of heart failure. No nausea or vomiting. No diarrhea or constipation. He did take his medications this morning including Flagyl which is now complete Medical History: Reviewed Medications: Reviewed Surgical History: Reviewed Family history: Reviewed Allergies: Reviewed Social History: Reviewed Code Status: Full Allergies Allergy/AdvReac Type Severity Reaction Status Date / Time Fish Containing Products Allergy Intermediate Nausea Verified 09/05/23 16:53 shellfish derived Allergy Intermediate Nausea Verified 09/05/23 16:53 ciprofloxacin [From Cipro] AdvReac Unknown see comment Verified 09/05/23 16:53 metronidazole [From Flagyl] AdvReac Unknown see comment Verified 09/05/23 16:53 Home Medications Medication Instructions Recorded Confirmed Type zolpidem 5 mg tablet (Ambien) 5 - 10 mg PO HS PRN Insomnia 10/17/18 09/05/23 History ferrous sulfate 325 mg (65 mg 325 mg PO QAM 12/28/18 09/05/23 History iron) tablet (iron) Dhea 1 dose topical QAM 07/19/21 09/05/23 History multivitamin 2 tab PO QAM 07/26/21 09/05/23 History melatonin 10 mg tablet 10 mg PO HS PRN Sleep 03/21/22 09/05/23 History docusate sodium 100 mg capsule 100 mg PO BID PRN stool softener 05/06/22 09/05/23 History ([facility]) famotidine 20 mg tablet 20 mg PO HS 90 days #90 tabs 07/09/22 09/05/23 Rx sildenafil 100 mg tablet 100 mg PO DAILY PRN Erectile 07/17/22 09/05/23 Rx Dysfunction #30 tabs diclofenac sodium 75 mg 75 mg PO BID PRN Severe Pain 10/04/22 09/05/23 History tablet,delayed release (Scale Score 7-10) meloxicam 15 mg tablet 15 mg PO DAILY PRN Pain 10/04/22 09/05/23 History polyethylene glycol 3350 17 gram 17 g PO BID PRN Constipation 10/04/22 09/05/23 History oral powder packet (Miralax) ibuprofen 600 mg tablet 600 mg PO TID PRN Pain 10/22/22 09/05/23 History potassium gluconate 550 mg (90 mg) 550 mg PO DAILY #30 tabs 07/24/23 09/05/23 Rx tablet alprazolam 0.5 mg tablet (Xanax) 0.5 mg PO HS PRN Anxiety 08/01/23 09/05/23 History metronidazole 500 mg tablet 500 mg PO BID #30 tabs 08/08/23 09/05/23 Rx betamethasone dipropionate 0.05 % 1 applic topical DAILY #45 grams 08/15/23 0 09/05/23 Rx topical ointment Past Med/Surg History Problem List (Updated 09/05/23 @ 17:01 by Anna Daugherty MD) Sepsis (Acute) UTI (urinary tract infection) (Acute) Foot pain Blepharitis Penile rash Abdominal pain, chronic, left lower quadrant Renal cyst Inguinal hernia recurrent bilateral Diverticulitis large intestine Situational stress BPH (benign prostatic hyperplasia) Atonic bladder straight caths self QID, able to urinate himself "sometimes" Irritable bowel syndrome GERD (gastroesophageal reflux disease) Abdominal aortic ectasia Hiatal hernia Renal cyst Pyelonephritis Constipation Ischial bursitis of right side Prostatitis Syncope (Acute) Sinusitis Vocal cord nodules Hemangioma Colitis Pelvic pain in male Sleep disorder Lumbar pain determined by palpation Sinusitis Urinary retention due to benign prostatic hyperplasia COVID Syncope (Acute) Chest wall contusion (Acute) Multiple fractures of ribs (Acute) Sepsis due to gram-negative UTI Abdominal pain Irritable bowel syndrome Plantar fasciitis, right Change in bowel habits Anxiety Medical History (Updated 09/05/23 @ 17:01 by Anna Daugherty MD) Cheilitis Atopic dermatitis Conjunctivitis Laryngitis Diverticulitis large intestine 11/02/08 admitted to [facility] (proximal sigmoid) Brain aneurysm COVID Acquired deviated nasal septum [facility] (closed head injury) History of recent hospitalization syncope/fall/severe UTI, treated at [facility] inpatient. traumatic pneumothorax treated with chest tube. denies current sob. Traumatic retroperitoneal hematoma pt unsure of the details, possibly related to pneumothorax in 05/2022. Traumatic pneumothorax from a fall in 05/2022. patient had a fall after his syncope/severe UTI and was treated at [facility] inpatient. had a chest tube. no current issues to his knowledge at this time. Arthritis Hx of basal cell carcinoma History of COVID-19 06/2021>TEST DONE AT [facility] *SYMPTOMS>FATIGUE/DIZZINESS (RESOLVED) Fractured nose 06/2021-DISPLACEMENT FROM FALL; 2nd fall later 2021-refractured nose>reset in dr rico's office Back problem Claustrophobia Surgical History S/P TURP unsuccessful -- 03/2022 History of cystoscopy Chalazion REPAIRED X 2 Difficult intubation Possibly. Glidescope #4 with previous tibial tendon repair without issues per 2017 record History of surgical removal of lesion History of tooth extraction Status post tendon repair RT and LT FOOT History of right inguinal hernia repair History of colonoscopy History of esophagogastroduodenoscopy (EGD) Family History Father Family history of diabetes mellitus Lung cancer Brother Diabetes Mother Kidney malignancy Other No family history of adverse response to anesthesia No family history of bleeding disorder Social History Smoking Status: Never smoker Second Hand Exposure: Yes (as a child); Do You Dip or Chew Tobacco: No; Hx Alcohol Use: Yes Alcohol type: beer Alcohol Intake Frequency: 2-4 x/Month Hx Substance Use: No Preferred Language: Nigerien Communication Ability: Effective Visual Impairment: No Limitations Cubing Machine Tender Required: No Beliefs That Will Affect Care: Orthodox Orthodox Beliefs: MORMONISM marital status: Current Living Situation: Spouse 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 NAD. Cooperative. HEENT: Atraumatic, normocephalic. Pulm: CTAB A&P. -wheezes, -rales, -rhonchi. Symmetrical chest rise. No increased work of breathing. No respiratory distress. Cardiac: RRR, -mrg. Radial pulses intact and symmetrical. Abdominal: No LLQ TTP. nondistended, soft. BS present. Endorses soem pressure/discomfort on suprapubic palpation Ext: warm, dry Results & Data Results & Data Vital Signs (Past 12 Hours) Vital Signs Temp Pulse Resp BP Pulse Ox O2 Del Method 09/05/23 15:24 58 L 09/05/23 14:43 37.2 C 75 18 100/60 97 Room Air PG Care Time/CCT Total # of Minutes Spent Total Time Spent with Patient: Total time spent is greater than 50% in coordination of care (as documented) at patient's floor/unit and/or counseling patient: Coding Level of Care Code 22398 INT INP/OBS CARE 3/75MIN Diagnoses UTI (urinary tract infection) N39.0 Sepsis A41.9 Atonic bladder N31.2
[2023-09-05] MEDS: SODIUM CHLORIDE 0.9% 1,000 ML IV SCH (16:44)
[2023-09-05] MEDS: cefTRIAXone SODIUM 2,000 MG/50 ML BAG IV STA (16:44)
[2023-09-05] MEDS: SODIUM CHLORIDE 0.9% 500 ML IV ONE (16:44)
[2023-09-05] MEDS: MoRPHine SULFATE 4 MG/ML 1 ML CARP\\VIAL IV STA (17:33)
[2023-09-05] MEDS: PLASMA-LYTE A 1,000 ML IV ONE (18:49)
[2023-09-05] MEDS: ACETAMINOPHEN 325 MG TAB PO PRN (20:27)
[2023-09-05] MEDS: ALPRAZolam 0.5 MG TABLET PO PRN (20:45)
[2023-09-05] MEDS: FAMOTIDINE 20 MG TAB PO SCH (20:45)
[2023-09-05] MEDS: POLYETHYLENE (MIRALAX) 17 GM PACK PO PRN (20:45)
[2023-09-05] MEDS: IBUPROFEN 600 MG TAB PO STA (21:06)
[2023-09-05] MEDS: MELATONIN 3 MG TAB PO PRN (21:06)
[2023-09-05] MEDS: HEPARIN SOD 5,000 UNIT/0.5 ML VIAL SQ SCH (21:41)
[2023-09-05] MEDS: SODIUM CHLORIDE 0.9% 1,000 ML IV ONE (22:30)
--- NOTE | 2023-09-06 00:01 | Communication Note ---
Date of Service: September 06, 2023 Alerted by nursing ~10PM concerning pt's hypotension (70-80s/40s). Pt had received 2.5L of NS in the ER and another 1L plasma-lyte bolus upon admission. Another 1L bolus of NS was ordered at that time. Pt seen at bedside- he is alert, oriented, and conversational. Main complaints were abdominal pain and inability to walk/stand due to weakness and unsteadiness. Encouraged pt to tell myself or nursing of any changes. I was alerted by nursing again ~11PM that pt developed chest heaviness. EKG showing sinus bradycardia w/o acute ischemic changes. Pt again seen at bedside- he described the pain as a heaviness that did not radiate anywhere. He denied it feeling like previous episodes of reflux. He denied associated symptoms of nausea, diaphoresis, or SOB. Repeat labs ordered at that time- CBC, BMP, Mg w/o acute change. Trop increased from 12.6 to 20.7- will continue to trend with repeat timed with AM labs. Ca low to 7.3- calcium gluconate 2g ordered. Pt evaluated again at bedside around midnight with Dr. Oliveira and Marco Antonio Arroyo, JOSE ANTONIO. No major changed in pt's symptoms. BP appears to be responsive to fluids- ordered 250 mL of albumin. Will continue with maintenance IVF at 125 mL/hr NS for BP support. Resident Activity Tracking Resident Involvement: Resident Care Provided Care Provided: Adult Hospital Medicine
[2023-09-06 00:11] LABS: Hematocrit (blood only) 32.9 % (42.0-52.0); Hemoglobin 11.2 g/dl (14.0-18.0); Mean Corpuscular Hemoglobin 33.4 pg (25.0-34.0); Mean Corpuscular Volume 98.2 fL (80.0-100.0); Mean Platelet Volume 10.5 fL (9.4-12.4); Platelet Count 147 K/uL (130-400); RDW Coefficient of Variation 13.3 % (11.5-14.5); Red Blood Count 3.35 M/uL (4.70-6.10); White Blood Count 14.45 K/ul (4.8-10.8)
[2023-09-06 00:20] LABS: BUN Creatinine Ratio 14.5 (10-20); Calcium 7.3 mg/dl (8.6-10.3); Est GFR (Non-African American) 51.8 ml/min; Magnesium 1.7 mg/dl (1.7-2.4); Potassium 3.8 mmol/L (3.5-5.1)
[2023-09-06 00:27] LABS: Troponin I High Sensitivity 20.7 pg/ml (0-20)
[2023-09-06] MEDS: PANTOprazole 40 MG in SYRINGE 0 ML IV ONE (00:33)
[2023-09-06] MEDS: ALBUMIN 5% 250 ML IV ONE (00:51)
[2023-09-06] MEDS: CALCIUM GLUCONATE 1,000 MG/60 ML BAG IV SCH (01:00)
[2023-09-06] MEDS: SODIUM CHLORIDE 0.9% 500 ML IV ONE (01:40)
[2023-09-06] MEDS: SODIUM CHLORIDE 0.9% 1,000 ML IV SCH (02:30)
[2023-09-06] MEDS: oxyCODONE HCL IR 5 MG TAB (IMMEDIATE RELEASE) PO STA (02:39)
[2023-09-06] MEDS: MELATONIN 3 MG TAB PO PRN (03:50)
[2023-09-06 06:25] LABS: Basophils # (auto) 0.04 K/uL (0.00-0.20); Basophils % (auto) 0.3 %; Eosinophils # (auto) 0.02 K/uL (0.00-0.50); Eosinophils % (auto) 0.2 %; Hematocrit (blood only) 34.1 % (42.0-52.0); Hemoglobin 11.3 g/dl (14.0-18.0); Immature Granulocytes # (auto) 0.09 K/uL (0.01-0.20); Immature Granulocytes % (auto) 0.8 %; Lymphocytes # (auto) 1.61 K/uL (1.20-3.40); Lymphocytes % (auto) 13.4 %; Mean Corpuscular Hemoglobin 33.4 pg (25.0-34.0); Mean Corpuscular Hgb Conc 33.1 g/dL (32.0-36.0); Mean Corpuscular Volume 100.9 fL (80.0-100.0); Mean Platelet Volume 11.1 fL (9.4-12.4); Monocytes # (auto) 1.01 K/uL (0.11-0.59); Monocytes % (auto) 8.4 %; Neutrophils # (auto) 9.21 K/uL (1.40-6.50); Neutrophils % (auto) 76.9 %; Platelet Count 130 K/uL (130-400); RDW Coefficient of Variation 13.5 % (11.5-14.5); RDW Standard Deviation 49.7 fL (36.4-46.3); Red Blood Count 3.38 M/uL (4.70-6.10); White Blood Count 11.98 K/ul (4.8-10.8)
[2023-09-06 06:38] LABS: BUN Creatinine Ratio 13.7 (10-20); Calcium 7.7 mg/dl (8.6-10.3); Creatinine Clr Calc Pharmacy 57.1 ml/min; Est GFR (African American) 68.8 ml/min; Est GFR (Non-African American) 59.4 ml/min; Magnesium 1.8 mg/dl (1.7-2.4); Potassium 4.1 mmol/L (3.5-5.1)
[2023-09-06 06:44] LABS: Troponin I High Sensitivity 16.2 pg/ml (0-20)
[2023-09-06] MEDS: SIMETHICONE 80 MG CHEW PO ONE (06:54)
[2023-09-06] MEDS: IBUPROFEN 200 MG TAB PO STA (08:36)
[2023-09-06] MEDS: MoRPHine SULFATE 2 MG/ML CARP IV STA (11:23)
--- NOTE | 2023-09-06 11:28 | Hospitalist Progress Note ---
Date of Service September 06, 2023 Assessment & Plan (1) UTI (urinary tract infection): Plan: Acute complicated UTI in the setting of self-catheterization with septic shock Infected appearing UA with fever and leukocytosis Lactate normal. Blood cultures ordered admission, may be sterilized as antibiotics have been given prior to this. Urine culture growing gram-negative aida Septic shock improving with improved blood pressure Leukocytosis improved from 14-11. Patient is still spiking fevers Ames catheter in place, functioning well Continue IV fluids at 125 mL an hour Continue ceftriaxone IV (2) Sepsis: Plan: Septic shock Blood pressure has been low overnight, but improved this morning. 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 Rincon from urology. Will continue Ames catheter for now. Plan History of diverticulitis No left lower quadrant tenderness to palpation, no evidence of diverticulitis on CT. Flagyl course complete, this is not continued on admission CTA/P is without evidence of acute diverticulitis, diverticulosis is noted Flagyl continued, patient is on Rocephin as noted above Last colonoscopy 10/2022 with sigmoid diverticulosis, nonbleeding internal hemorrhoids, otherwise unremarkable Chronic stable issues: History of constipation: Continue MiraLAX, bowel regimen Anxiety: Continue alprazolam at bedtime as needed DVT prophylaxis: Heparin Disposition: Medical surgical CODE STATUS: Full code Diet: Regular Admission and Anticipated Discharge Date Admission Date: September 05, 2023 Subjective Patient has a lot of complaints today. He complains of lower abdominal pain. He thinks that he is not draining urine and that Ames catheter is clogged. He would like to go back to self-catheterization. He also complains of feeling hot and cold. He is not dizzy or lightheaded. Review of Systems Review of Systems: All systems reviewed & are unremarkable except as noted in Subjective Physical Exam Physical Exam: General: Awake, conversant Heart: S1, S2/regular rate and rhythm, no murmur rubs or gallops Lungs: Clear to auscultation bilaterally. Normal effort Abdomen: Soft/nontender/nondistended. No hepatosplenomegaly. Ames catheter in place draining straw-colored urine. Extremities: No clubbing/cyanosis. No edema Behavior: Appropriate, cooperative Results & Data Results & Data Vital Signs (Past 12 Hours) Vital Signs Temp Pulse Pulse Resp BP BP Pulse Ox 09/06/23 07:55 39.0 C H 91 H 20 110/57 L 92 09/06/23 03:17 48 L 09/06/23 03:00 59 L 17 89/57 L 99 09/06/23 02:36 36.4 C L 49 L 14 96/91 L 98 09/06/23 01:30 77/40 L 09/06/23 01:30 65 16 96 09/06/23 01:03 57 L 18 99 09/06/23 01:00 90/51 L 09/06/23 00:45 52 L 21 89/52 L 98 09/06/23 00:30 87/52 L 09/06/23 00:07 88/62 L 09/05/23 23:38 70 77/46 L 95 O2 Del Method 09/06/23 07:55 Room Air 09/06/23 03:17 09/06/23 03:00 Room Air 09/06/23 02:36 Room Air 09/06/23 01:30 09/06/23 01:30 Room Air 09/06/23 01:03 Room Air 09/06/23 01:00 09/06/23 00:45 Room Air 09/06/23 00:30 09/06/23 00:07 09/05/23 23:38 Room Air Laboratory Results Abnormal lab results 09/05/23 09/05/23 09/05/23 Range/Units 15:26 15:31 23:39 WBC 15.97 H 14.45 H (4.8-10.8) K/ul RBC 3.92 L 3.35 L (4.70-6.10) M/uL Hgb 12.9 L 11.2 L (14.0-18.0) g/dl POC Hgb 13.3 L (14.0-18.0) g/dl Hct 38.1 L 32.9 L (42.0-52.0) % POC Hct 39 L (42-52) % MCV (80.0-100.0) fL RDW Std Deviation 47.5 H 48.0 H (36.4-46.3) fL Neut # (Auto) 13.45 H (1.40-6.50) K/uL Lymph # (Auto) 1.16 L (1.20-3.40) K/uL [place] # (Auto) 1.19 H (0.11-0.59) K/uL Sodium 135 L 134 L (136-145) mmol/L POC Chloride 100 L (101-112) mmol/L POC BUN 19 H (7-18) mg/dl POC Creatinine 1.4 H (0.6-1.3) mg/dl Glucose 112 H 107 H (70-99(Fasting)) mg/dl POC Glucose (other) 109 H (70-99) mg/dl Calcium 8.3 L 7.3 L (8.6-10.3) mg/dl POC Ioniz Calcium Humza 1.05 L (1.12-1.32) mmol/l Troponin I High Sens 20.7 H (0-20) pg/ml Urine Appearance Cloudy A (Clear) Urine Protein 1+ H (Negative) Urine Ketones Trace H (Negative) Urine Blood 2+ H (Negative) Urine Nitrite Positive A (Negative) Urine Bilirubin 1+ H (Negative) Ur Leukocyte Esterase 3+ H (Negative) Urine WBC (Auto) >50 H (0-5) /hpf U Hyaline Cast (Auto) 3-5 H (0-2) /lpf U Epithel Cells (Auto) 3-5 H (0-2) /hpf Urine Bacteria (Auto) 1+ H (None Seen) 09/06/23 Range/Units 05:19 WBC 11.98 H (4.8-10.8) K/ul RBC 3.38 L (4.70-6.10) M/uL Hgb 11.3 L (14.0-18.0) g/dl POC Hgb (14.0-18.0) g/dl Hct 34.1 L (42.0-52.0) % POC Hct (42-52) % MCV 100.9 H (80.0-100.0) fL RDW Std Deviation 49.7 H (36.4-46.3) fL Neut # (Auto) 9.21 H (1.40-6.50) K/uL Lymph # (Auto) (1.20-3.40) K/uL [place] # (Auto) 1.01 H (0.11-0.59) K/uL Sodium (136-145) mmol/L POC Chloride (101-112) mmol/L POC BUN (7-18) mg/dl POC Creatinine (0.6-1.3) mg/dl Glucose (70-99(Fasting)) mg/dl POC Glucose (other) (70-99) mg/dl Calcium 7.7 L (8.6-10.3) mg/dl POC Ioniz Calcium Humza (1.12-1.32) mmol/l Troponin I High Sens (0-20) pg/ml Urine Appearance (Clear) Urine Protein (Negative) Urine Ketones (Negative) Urine Blood (Negative) Urine Nitrite (Negative) Urine Bilirubin (Negative) Ur Leukocyte Esterase (Negative) Urine WBC (Auto) (0-5) /hpf U Hyaline Cast (Auto) (0-2) /lpf U Epithel Cells (Auto) (0-2) /hpf Urine Bacteria (Auto) (None Seen) Diagnostic Findings Abdomen/Pelvis CT 09/05/23 14:57 CT abd pelvis IV con only CLINICAL HISTORY: diverticulitis, recurrent TECHNIQUE: Helical axial images of the abdomen and pelvis were obtained and displayed. Automated dose lowering techniques and/or adjustment according to patient size were utilized for this exam. This exam was performed with intravenous contrast. CT DOSE: 1177.29 mGy.cm COMPARISON: Comparison is made to CT abdomen pelvis 07/26/2023 FINDINGS: Lower chest: Bibasilar atelectasis versus scarring is seen. Liver: Unremarkable. No focal lesions are seen. Gallbladder and biliary tree: No calcified gallstones. Normal caliber wall. No intra- or extrahepatic biliary ductal dilation. Pancreas: Unremarkable, no focal lesions. Spleen: Unremarkable. Adrenals: Unremarkable. Kidneys and ureters: Renal cysts are seen. Bladder: Unremarkable. Reproductive organs: Unremarkable. Bowel: Diverticulosis is seen without diverticulitis. The appendix is normal. There is a tiny hiatal hernia. Lymph nodes Retroperitoneal: Unremarkable. Pelvic: Unremarkable. Mesenteric: Unremarkable. Peritoneum: Normal. Vessels: Atherosclerotic calcifications are seen. Abdominal wall: A fat-containing umbilical hernia is seen. Left fat-containing inguinal hernia is seen. Bones: Degenerative changes in the visualized spine. Subacute right rib fractures are seen. IMPRESSION: No acute abnormalities and in particular no evidence of diverticulitis despite presence of diverticulosis.. ACT 112: Negative or not required by law. Electronically signed by: Vidal Abbott M.D. 09/05/2023 4:12 PM PG Care Time/CCT Total # of Minutes Spent Total Time Spent with Patient: Total time spent is greater than 50% in coordination of care (as documented) at patient's floor/unit and/or counseling patient: Coding Level of Care Code 33561 SUB INP/OBS CARE 2/35MIN Diagnoses UTI (urinary tract infection) N39.0 Sepsis A41.9 Atonic bladder N31.2
[2023-09-06] MEDS: metroNIDAZOLE 500 MG TAB PO SCH (13:18)
[2023-09-06] MEDS: cefTRIAXone SODIUM 2,000 MG/50 ML BAG IV SCH (16:35)
[2023-09-06] MEDS: SODIUM CHLORIDE 0.9% 1,000 ML IV ONE (18:17)
[2023-09-06] MEDS: traMADol HCL 50 MG TABLET PO ONE (20:11)
[2023-09-06] MEDS: ACETAMINOPHEN 1,000 MG/100 ML VIAL IV PRN (22:02)
--- NOTE | 2023-09-06 22:54 | Electrocardiogram Report ---
Test Reason : Blood Pressure : / mmHG Vent. Rate : 052 BPM Atrial Rate : 052 BPM P-R Int : 168 ms QRS Dur : 112 ms QT Int : 428 ms P-R-T Axes : 073 024 013 degrees QTc Int : 398 ms Sinus bradycardia Incomplete right bundle branch block When compared with ECG of 05-SEP-2023 22:58, No significant change was found Confirmed by Mosse Valiente ([id number]) on 09/06/2023 10:54:23 PM Referred By: REFERRED SELF Confirmed By:Moses Valiente
[2023-09-07] MEDS: ACETAMINOPHEN 325 MG TAB ONE (03:25)
[2023-09-07 06:15] LABS: Basophils # (auto) 0.02 K/uL (0.00-0.20); Basophils % (auto) 0.2 %; Eosinophils # (auto) 0.01 K/uL (0.00-0.50); Eosinophils % (auto) 0.1 %; Hematocrit (blood only) 31.5 % (42.0-52.0); Hemoglobin 10.8 g/dl (14.0-18.0); Immature Granulocytes # (auto) 0.08 K/uL (0.01-0.20); Immature Granulocytes % (auto) 0.8 %; Lymphocytes # (auto) 0.82 K/uL (1.20-3.40); Lymphocytes % (auto) 7.8 %; Mean Corpuscular Hemoglobin 33.3 pg (25.0-34.0); Mean Corpuscular Hgb Conc 34.3 g/dL (32.0-36.0); Mean Corpuscular Volume 97.2 fL (80.0-100.0); Mean Platelet Volume 10.5 fL (9.4-12.4); Monocytes # (auto) 0.87 K/uL (0.11-0.59); Monocytes % (auto) 8.3 %; Neutrophils # (auto) 8.72 K/uL (1.40-6.50); Neutrophils % (auto) 82.8 %; Platelet Count 143 K/uL (130-400); RDW Coefficient of Variation 13.1 % (11.5-14.5); RDW Standard Deviation 46.3 fL (36.4-46.3); Red Blood Count 3.24 M/uL (4.70-6.10); White Blood Count 10.52 K/ul (4.8-10.8)
[2023-09-07 06:45] LABS: BUN Creatinine Ratio 14.1 (10-20); Calcium 7.3 mg/dl (8.6-10.3); Creatinine Clr Calc Pharmacy 72.6 ml/min; Est GFR (Non-African American) 79.4 ml/min; Potassium 3.4 mmol/L (3.5-5.1)
[2023-09-07] MEDS: POTASSIUM CHLORIDE CRTAB 20 MEQ TABCR PO STA (08:42)
[2023-09-07] MEDS: ACETAMINOPHEN 325 MG TAB PO PRN (08:42)
[2023-09-07] MEDS: IBUPROFEN 200 MG TAB PO PRN (10:55)
--- NOTE | 2023-09-07 11:18 | Hospitalist Progress Note ---
Date of Service September 07, 2023 Assessment & Plan (1) UTI (urinary tract infection): Plan: Acute complicated Citrobacter UTI in the setting of self-catheterization with septic shock Infected appearing UA with fever and leukocytosis Lactate normal. Blood cultures ordered admission, may be sterilized as antibiotics have been given prior to this. Urine culture growing pansensitive Citrobacter Septic shock has resolved Leukocytosis resolved Patient is no more spiking fevers Ames catheter in place, functioning well. Will discontinue Ames catheter and resume self-catheterization Continue IV fluids at 125 mL an hour Continue ceftriaxone IV. Plan to switch to p.o. 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 Rincon from urology. Will discontinue Ames catheter and resume self-catheterization using sterile techniques Plan Right upper quadrant pain Most likely musculoskeletal in etiology CT abdomen was negative for any gallbladder issues Ultrasound abdomen ordered since it is a better test to check for gallbladder and since patient is insistent Rib x-ray negative Troponin negative Ordered echocardiogram Treat the pain with ibuprofen. No narcotics as his blood pressure drops History of diverticulitis No left lower quadrant tenderness to palpation, no evidence of diverticulitis on CT. Flagyl course complete, this is not continued on admission CTA/P is without evidence of acute diverticulitis, diverticulosis is noted Flagyl continued, patient is on Rocephin as noted above Last colonoscopy 10/2022 with sigmoid diverticulosis, nonbleeding internal hemorrhoids, otherwise unremarkable Chronic stable issues: History of constipation: Continue MiraLAX, bowel regimen Anxiety: Continue alprazolam at bedtime as needed DVT prophylaxis: Heparin CODE STATUS: Full code Diet: Regular Called , left voicemail. Awaiting callback Admission and Anticipated Discharge Date Admission Date: September 05, 2023 Subjective Patient still has a lot of complaints. Mostly complaining of pain in the upper abdomen, right upper quadrant, chest. None of the pain is exertional. He says that he was constipated and was straining and is unsure if this pain is related to that. He says it hurts to move. He has been asking for morphine for the pain but his blood pressure had dropped after receiving morphine yesterday. Today he no more complains of the pelvic pressure that he was experiencing yesterday. Review of Systems Review of Systems: All systems reviewed & are unremarkable except as noted in Subjective Physical Exam Physical Exam: General: Awake, conversant Heart: S1, S2/regular rate and rhythm, no murmur rubs or gallops Lungs: Clear to auscultation bilaterally. Normal effort Abdomen: Soft/nontender/nondistended. No hepatosplenomegaly. Ames catheter in place draining straw-colored urine. Extremities: No clubbing/cyanosis. No edema Behavior: Appropriate, cooperative Results & Data Results & Data Vital Signs (Past 12 Hours) Vital Signs Temp Pulse Pulse Resp BP Pulse Ox O2 Del Method 09/07/23 08:00 64 09/07/23 07:48 37.1 C 68 20 114/63 94 Room Air 09/07/23 03:28 37.2 C 70 16 130/68 91 Room Air Laboratory Results Abnormal lab results 09/07/23 Range/Units 05:57 RBC 3.24 L (4.70-6.10) M/uL Hgb 10.8 L (14.0-18.0) g/dl Hct 31.5 L (42.0-52.0) % Neut # (Auto) 8.72 H (1.40-6.50) K/uL Lymph # (Auto) 0.82 L (1.20-3.40) K/uL [place] # (Auto) 0.87 H (0.11-0.59) K/uL Potassium 3.4 L (3.5-5.1) mmol/L Chloride 109 H (98-107) mmol/L Carbon Dioxide 19 L (21-32) mmol/L Calcium 7.3 L (8.6-10.3) mg/dl Diagnostic Findings Ribs w/Chest X-Ray 09/07/23 09:33 XR ribs RT min 2V w [id number] CLINICAL HISTORY: R rib pain TECHNIQUE: 3 views of the right ribs were obtained. Single frontal view of the chest was obtained. Comparison: Comparison is made to chest radiograph 10/22/2022 FINDINGS: No acute fractures are seen. Subacute to chronic fractures of the ninth and 10th posterior ribs noted. The chest wall and soft tissues are normal. No lines and tubes are seen. The cardiomediastinal silhouette is normal. Lungs are underinflated but clear. No evidence of pleural effusion or pneumothorax. IMPRESSION: No evidence of acute fracture or other acute abnormalities in the visualized portions of the chest. ACT 112: Negative or not required by law. Electronically signed by: Vidal Abbott M.D. 09/07/2023 11:46 AM PG Care Time/CCT Total # of Minutes Spent Total Time Spent with Patient: Total time spent is greater than 50% in coordination of care (as documented) at patient's floor/unit and/or counseling patient: Coding Level of Care Code 82766 SUB INP/OBS CARE 2/35MIN Diagnoses UTI (urinary tract infection) N39.0 Sepsis A41.9 Atonic bladder N31.2
--- NOTE | 2023-09-07 11:48 | XRay Report ---
XR ribs RT min 2V w CXR1V CLINICAL HISTORY: R rib pain TECHNIQUE: 3 views of the right ribs were obtained. Single frontal view of the chest was obtained. Comparison: Comparison is made to chest radiograph 10/22/2022 FINDINGS: No acute fractures are seen. Subacute to chronic fractures of the ninth and 10th posterior ribs note d. The chest wall and soft tissues are normal. No lines and tubes are seen. The cardiomediastinal silhouette is normal. Lungs are underinflated but clear. No evidence of pleural effusion or pneumothorax. IMPRESSION: No evidence of acute fracture or other acute abnormalities in the visualized portions of the chest. ACT 112: Negative or not required by law. Electronically signed by: Vidal Abbott M.D. 09/07/2023 11:46 AM
--- NOTE | 2023-09-07 18:18 | Ultrasound Report ---
US liver CLINICAL HISTORY: RUQ pain TECHNIQUE: Multiple real-time sonographic images of the right upper quadrant were obtained. Comparison: Comparison is made to CT abdomen pelvis 09/05/2023 FINDINGS: The liver is diffusely echogenic in appearance with poor ultrasound penetration, with normal contour, which is consistent with fatty infiltration. No focal mass lesions are seen. No intrahepatic duct al dilatation is seen. No gallstones or sludge are identified within the gallbladder. The gallbladde r wall is not thickened. There is trace pericholecystic fluid present. Apical: Sonographic James's s ign with tenderness throughout the right upper quadrant. The common duct measures 0.3 cm in diameter at the level of the hepatic artery. The visualized portions of the pancreas appear normal. The right kidney shows normal echogenicity, cortical thickness and renal contour. The right kidney sh ows no evidence of hydronephrosis. A 5 cm cyst is seen in the lower pole. No ascites or free fluid is seen in Rodriguez's pouch. IMPRESSION: No evidence of gallbladder wall thickening with trace pericholecystic fluid. Equivocal sonographic Mu rphy's sign with tenderness in multiple locations in the right upper quadrant. Overall findings are e quivocal but considered less likely to represent acute cholecystitis. If clinical concern remains, [facility] medicine HIDA scan can be performed. ACT 112: Negative or not required by law. Electronically signed by: Vidal Abbott M.D. 09/07/2023 6:16 PM
[2023-09-07] MEDS: LIDOCAINE 5% 1 PATCH TD STA (22:00)
--- NOTE | 2023-09-08 00:32 | XCELERA ---
[id number]
[2023-09-08 06:28] LABS: Basophils # (auto) 0.03 K/uL (0.00-0.20); Basophils % (auto) 0.3 %; Eosinophils # (auto) 0.04 K/uL (0.00-0.50); Eosinophils % (auto) 0.4 %; Hematocrit (blood only) 31.5 % (42.0-52.0); Hemoglobin 11.1 g/dl (14.0-18.0); Immature Granulocytes # (auto) 0.04 K/uL (0.01-0.20); Immature Granulocytes % (auto) 0.4 %; Lymphocytes # (auto) 0.74 K/uL (1.20-3.40); Lymphocytes % (auto) 8.2 %; Mean Corpuscular Hemoglobin 33.4 pg (25.0-34.0); Mean Corpuscular Hgb Conc 35.2 g/dL (32.0-36.0); Mean Corpuscular Volume 94.9 fL (80.0-100.0); Mean Platelet Volume 11.1 fL (9.4-12.4); Monocytes # (auto) 0.79 K/uL (0.11-0.59); Monocytes % (auto) 8.8 %; Neutrophils # (auto) 7.37 K/uL (1.40-6.50); Neutrophils % (auto) 81.9 %; Platelet Count 175 K/uL (130-400); RDW Coefficient of Variation 12.6 % (11.5-14.5); RDW Standard Deviation 43.8 fL (36.4-46.3); Red Blood Count 3.32 M/uL (4.70-6.10); White Blood Count 9.01 K/ul (4.8-10.8)
[2023-09-08 06:37] LABS: BUN Creatinine Ratio 15.2 (10-20); Calcium 7.5 mg/dl (8.6-10.3); Creatinine Clr Calc Pharmacy 84.6 ml/min; Est GFR (African American) 99.7 ml/min; Potassium 3.3 mmol/L (3.5-5.1)
--- NOTE | 2023-09-08 12:47 | Hospitalist Progress Note ---
Date of Service September 08, 2023 Assessment & Plan (1) UTI (urinary tract infection): Plan: Acute complicated Citrobacter UTI in the setting of self-catheterization with septic shock Infected appearing UA with fever and leukocytosis Lactate normal. Blood cultures ordered admission, may be sterilized as antibiotics have been given prior to this. Urine culture growing pansensitive Citrobacter Septic shock has resolved Leukocytosis resolved Patient is no more spiking fevers Ames catheter removed. Patient is back to self catheterizing. Switch from IV ceftriaxone to p.o. Keflex (2) Sepsis: Plan: Septic shock Resolved Discontinue IV fluids Switch to p.o. 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 Rincon from urology. Patient continued Ames catheter. Resumed self-catheterization Plan Right upper quadrant pain Most likely musculoskeletal in etiology CT abdomen was negative for any gallbladder issues Ultrasound abdomen negative Rib x-ray negative Troponin negative Echocardiogram showed no changes Treat the pain with ibuprofen. No narcotics as his blood pressure drops History of diverticulitis No left lower quadrant tenderness to palpation, no evidence of diverticulitis on CT. Flagyl course complete, this is not continued on admission CTA/P is without evidence of acute diverticulitis, diverticulosis is noted Flagyl continued, patient is on Rocephin as noted above Last colonoscopy 10/2022 with sigmoid diverticulosis, nonbleeding internal hemorrhoids, otherwise unremarkable Chronic stable issues: History of constipation: Continue MiraLAX, bowel regimen Anxiety: Continue alprazolam at bedtime as needed DVT prophylaxis: Heparin CODE STATUS: Full code Diet: Regular Spoke to on 09/06 Likely discharge tomorrow. Patient has been notified that he is being disc harged tomorrow Admission and Anticipated Discharge Date Admission Date: September 05, 2023 Subjective Patient says that he is feeling very weak and exhausted. He says that he does not want to go home today. His pain has resolved. Review of Systems Review of Systems: All systems reviewed & are unremarkable except as noted in Subjective Physical Exam Physical Exam: General: Awake, conversant Heart: S1, S2/regular rate and rhythm, no murmur rubs or gallops Lungs: Clear to auscultation bilaterally. Normal effort Abdomen: Soft/nontender/nondistended. No hepatosplenomegaly Extremities: No clubbing/cyanosis. No edema Behavior: Appropriate, cooperative Results & Data Results & Data Vital Signs (Past 12 Hours) Vital Signs Temp Pulse Pulse Resp BP Pulse Ox O2 Del Method 09/08/23 12:09 37.0 C 66 18 133/80 96 Room Air 09/08/23 07:43 37.4 C 73 18 130/87 90 Room Air 09/08/23 06:46 79 09/08/23 02:25 36.9 C 68 19 139/78 94 Room Air Laboratory Results Abnormal lab results 09/08/23 Range/Units 05:46 RBC 3.32 L (4.70-6.10) M/uL Hgb 11.1 L (14.0-18.0) g/dl Hct 31.5 L (42.0-52.0) % Neut # (Auto) 7.37 H (1.40-6.50) K/uL Lymph # (Auto) 0.74 L (1.20-3.40) K/uL Pacific # (Auto) 0.79 H (0.11-0.59) K/uL Potassium 3.3 L (3.5-5.1) mmol/L Chloride 108 H (98-107) mmol/L Calcium 7.5 L (8.6-10.3) mg/dl PG Care Time/CCT Total # of Minutes Spent Total Time Spent with Patient: Total time spent is greater than 50% in coordination of care (as documented) at patient's floor/unit and/or counseling patient: Coding Level of Care Code 16260 SUB INP/OBS CARE 2/35MIN Diagnoses UTI (urinary tract infection) N39.0 Sepsis A41.9 Atonic bladder N31.2
[2023-09-08] MEDS: cephALEXin 500 MG CAP PO SCH (13:19)
[2023-09-08] MEDS: POTASSIUM CHLORIDE CRTAB 20 MEQ TABCR PO STA (16:00)
[2023-09-08] MEDS: LIDOCAINE 5% 1 PATCH TD STA (16:54)
[2023-09-08] MEDS ORDERED: SULFAMETHOXAZOLE/TRIMETHOPRIM DS 800/160MG TAB PO SCH (18:00)
[2023-09-08] MEDS: CIPROFLOXACIN 500 MG TAB PO SCH (20:05)
[2023-09-09 08:27] VITALS: PULSE 60; RESP 18; TEMP 98.4; O2SAT 96
--- NOTE | 2023-09-09 09:57 | Discharge Summary ---
Date of Service September 09, 2023 Admission HPI Per Admitting Provider Oswaldo is a 78-year-old male with multiple episodes of recurrent diverticulitis, and 2 episodes of diverticulitis in the previous 2 months. He has been on Bactrim however tolerated this poorly and this was discontinued, and was subsequently on Flagyl 500 twice daily for an extended course of 1 month and was pending follow-up to [facility]. He presents to the ER with fever of 102, recurrent abdominal pain similar to prior episodes recurrent diverticulitis, difficulty ambulating due to weakness and fatigue. On ER evaluation CT did not show evidence of diverticulitis, however it does show an infected appearing UA and patient is recommended for inpatient treatment due to concurrent leukocytosis and weakness limiting ambulation Seen at the bedside. He reports the last 24 hours he has had low pelvic discomfort. Clarifies that is abdomen it is normally tender in the left lower quadrant with his diverticulitis however this is not currently sore but has had some feeling of pelvic pressure and discomfort with urination. He has felt feverish and has had shaking chills the last 24 hours. Has been lightheaded and a little dizzy. No chest pain or chest pressure. Denies shortness of breath. Denies history of heart failure. No nausea or vomiting. No diarrhea or constipation. He did take his medications this morning including Flagyl which is now complete Medical History: Reviewed Medications: Reviewed Surgical History: Reviewed Family history: Reviewed Allergies: Reviewed Social History: Reviewed Code Status: Full Admission Exam Per Admitting Provider General: A&Ox3. NAD. Cooperative. HEENT: Atraumatic, normocephalic. Pulm: CTAB A&P. -wheezes, -rales, -rhonchi. Symmetrical chest rise. No increased work of breathing. No respiratory distress. Cardiac: RRR, -mrg. Radial pulses intact and symmetrical. Abdominal: No LLQ TTP. nondistended, soft. BS present. Endorses soem pressure/discomfort on suprapubic palpation Ext: warm, dry Principal Diagnosis Acute complicated UTI related to self-catheterization Septic shock Discharge Exam General: Awake, conversant Heart: S1, S2/regular rate and rhythm, no murmur rubs or gallops Lungs: Clear to auscultation bilaterally. Normal effort Abdomen: Soft/nontender/nondistended. No hepatosplenomegaly Extremities: No clubbing/cyanosis. No edema Behavior: Appropriate, cooperative Discharge Data Allergies Allergy/AdvReac Type Severity Reaction Status Date / Time sulfamethoxazole Allergy Severe Rash Verified 09/08/23 18:18 [From Bactrim] trimethoprim [From Bactrim] Allergy Severe Rash Verified 09/08/23 18:18 Fish Containing Products Allergy Intermediate Nausea Verified 09/05/23 16:53 shellfish derived Allergy Intermediate Nausea Verified 09/05/23 16:53 ciprofloxacin [From Cipro] AdvReac Unknown see comment Verified 09/05/23 16:53 metronidazole [From Flagyl] AdvReac Unknown see comment Verified 09/05/23 16:53 Consultations 09/05/23 16:33 ED Decision to Admit Stat Ordered Studies 09/05/23 14:57 CT abd pelvis IV con only Stat 09/07/23 09:33 US RUQ [US liver] Urgent Hospital Course (1) UTI (urinary tract infection): Acute complicated Citrobacter UTI in the setting of self-catheterization with septic shock Infected appearing UA with fever and leukocytosis Lactate normal. Blood cultures ordered admission, may be sterilized as antibiotics have been given prior to this. Urine culture growing pansensitive Citrobacter Septic shock has resolved Leukocytosis resolved Patient is no more spiking fevers Ames catheter removed. Patient is back to self catheterizing. Discontinued IV ceftriaxone on 09/07. Started ciprofloxacin Patient continues to do well on ciprofloxacin. Ciprofloxacin is is listed in allergy as 'Pt states he was advised by Dr. Oliveira not to take this or Flagyl because of "weak tendons", patient to avoid all fluoroquinolone antibiotics'. Patient has been tolerating ciprofloxacin since yesterday. He has been advised to be careful with sudden ankle movements while he is on the antibiotic. He is allergic to Bactrim with a rash. (2) Sepsis: Septic shock Resolved Discontinue IV fluids Switch to p.o. 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 Rincon from urology. Patient continued Ames catheter. Resumed self-catheterization Plan Right upper quadrant pain Most likely musculoskeletal in etiology CT abdomen was negative for any gallbladder issues Ultrasound abdomen negative Rib x-ray negative Troponin negative Echocardiogram showed no changes Treat the pain with ibuprofen. No narcotics as his blood pressure drops Resolved History of diverticulitis No left lower quadrant tenderness to palpation, no evidence of diverticulitis on CT. Flagyl course complete, this is not continued on admission CTA/P is without evidence of acute diverticulitis, diverticulosis is noted Flagyl continued, patient is on Rocephin as noted above Last colonoscopy 10/2022 with sigmoid diverticulosis, nonbleeding internal hemorrhoids, otherwise unremarkable Chronic stable issues: History of constipation: Continue MiraLAX, bowel regimen Anxiety: Continue alprazolam at bedtime as needed DVT prophylaxis: Heparin CODE STATUS: Full code Diet: Regular Met with on 09/07. Updated her. Patient is feeling much better today. He is comfortable about a discharge plan today. Total Time Total Time Spent Total Time Spent (In Minutes): 35 Discharge Plan Discharge Items Patient Disposition: Home - Self-Care Reason For Visit: UTI, SEPSIS Discharge Diagnosis: Acute complicated UTI related to self-catheterization Septic shock Activity: Resume your previous activity Non-emergency contact: Primary Care Provider Call non-emergency contact if: you have any medication questions and your symptoms worsen Follow-up/Referrals: Bernard Arce MD [Primary Care Provider] - 09/16/23 11:00 am (with IAIN Han. ) Diet: Heart Healthy Addtl Attending Provider Instructions: Advised to follow-up with PCP in 1 week Advised to follow-up with urologist in 1 month Pending Studies at Discharge: No Stand-Alone Forms: My [facility] QFPay Medications and DC Order Prescriptions: New ciprofloxacin HCl 500 mg Tablet 500 mg PO BID 5 Days Qty: 10 0RF Continued sildenafil 100 mg tablet 100 mg PO DAILY PRN (Reason: Erectile Dysfunction) Qty: 30 3RF multivitamin Tablet 2 tab PO QAM Patient Comments: chewable gummies famotidine 20 mg tablet 20 mg PO HS 90 Days Qty: 90 3RF potassium gluconate 550 mg (90 mg) tablet 550 mg PO DAILY Qty: 30 2RF alprazolam [Xanax] 0.5 mg tablet 0.5 mg PO HS PRN (Reason: Anxiety) betamethasone dipropionate 0.05 % ointment 1 applic topical DAILY Qty: 45 0RF metronidazole 500 mg tablet 500 mg PO BID Qty: 30 0RF Rx Instructions: STARTED 08/16/23 FOR 15 DAYS. PER PT "HAVE A DAY OR TWO LEFT". zolpidem [Ambien] 5 mg Tablet 5 - 10 mg PO HS PRN (Reason: Insomnia) ferrous sulfate [iron] 325 mg (65 mg iron) Tablet 325 mg PO QAM docusate sodium [Col-Rite] 100 mg capsule 100 mg PO BID PRN (Reason: stool softener) polyethylene glycol 3350 [Miralax] 17 gram powder in packet 17 g PO BID PRN (Reason: Constipation) meloxicam 15 mg tablet 15 mg PO DAILY PRN (Reason: Pain) diclofenac sodium 75 mg tablet,delayed release (DR/EC) 75 mg PO BID PRN (Reason: Severe Pain (Scale Score 7-10)) Dhea 1 dose topical QAM Rx Instructions: 50mg once daily melatonin 10 mg Tablet 10 mg PO HS PRN (Reason: Sleep) ibuprofen 600 mg tablet 600 mg PO TID PRN (Reason: Pain) Discharge Orders: Discharge Order (Routine); Ordered 09/09/23 Ordered By: Fuad Taveras Admission Data Admit Date/Time: 09/05/23 17:04 Attending Provider: Fuad Taveras Admit Provider: Roel Dunlap Primary Care Provider: Bernard Arce Other Providers: Roel Dunlap Other Interventions: Discharge Summary Assessment (RN) Last Done: 09/09/23 10:02 Coding Level of Care Code 92617 INP/OBS DISCH >30 MIN Diagnoses UTI (urinary tract infection) N39.0 Sepsis A41.9 Atonic bladder N31.2
[2023-09-09 10:04] VITALS: BP 93/54
== END 2023-09-09 11:25 | disposition home or self-care (01) | DRG 871 ==
LOC: ED 14:39 → EDINP 16:43 → SUATTDRO 16:43 → EDINP 20:05 → 2E 09-06 02:33